=== PATIENT | male | born 1965 | race American Indian/Alaskan Native ===

== ENCOUNTER 2020-07-25 07:53 | Observation (INO) | payer SELFPAY ==
--- NOTE | 2020-07-25 08:20 | Emergency Department Report ---
ED Neuro Deficit HPI - General Chief Complaint: Neuro Symptoms/Deficit Stated Complaint: POSSIBLE STROKE Time Seen by Provider: 07/25/20 08:15 Source: patient Mode of arrival: Ambulatory Limitations: Other - History of Present Illness Initial Comments: 55-year-old male with a past medical history of gout, hypertension, and elevated cholesterol presents to the hospital complaints of neurologic symptoms since 10 AM yesterday morning. Patient states he noted facial droop and slurred speech that has persisted and therefore patient came to the ED today for evaluation. He denies headache, dizziness, extremity weakness, numbness, difficulty swallowing, or unsteady gait. Patient does not take an aspirin daily. He denies tobacco use. History of elevated cholesterol but he is not currently on meds. Patient took last dose of BP medication yesterday. Denies previous history of CVA, TIA, or CAD. PMD: None Code stroke was initiated by staff and patient received CT and neurology evaluation prior to my assessment. I did discuss case with neurologist who recommended stat CT angiogram to rule out large vessel stroke - Related Data Allergies/Adverse Reactions: Allergies Allergy/AdvReac Type Severity Reaction Status Date / Time No Known Allergies Allergy Unverified 07/25/20 07:56 ED Review of Systems ROS: Stated complaint: POSSIBLE STROKE Other details as noted in HPI Comment: All other systems reviewed and negative ED Past Medical Hx - Past Medical History Hx Hypertension: Yes Additional medical history: GOUT, elevated cholesterol ED Neuro Physical Exam - General Limitations: Other Suspected Stroke: Yes - NIHSS Assessment Interval: Baseline 1a. Level of Consciousness: alert/keenly responsive 1b. LOC Questions: answers both correctly 1c. LOC Commands: performs tasks correctly 2. Best Gaze: normal 3. Visual: no visual loss 4. Facial Palsy: unilateral complete paralysis 5b. Motor Arm Right: no drift 5a. Motor Arm Left: no drift 6a. Motor Leg Left: no drift 6b. Motor Leg Right: no drift 7. Limb Ataxia: absent 8. Sensory: normal 9. Best Language: no aphasia 10. Dysarthria: mild/moderate dysarthria 11. Extinction/Inattention: no abnormality Total Score: 4 Stroke Severity: Minor Stroke - Other Other exam information: Exam performed after neurology evaluation with similar NIH stroke score but different exam findings General: No acute distress Head: Atraumatic Eyes: normal appearance ENT: Moist mucous membranes Neck: Normal appearance, no midline tenderness Chest: Clear to auscultation bilaterally CV: Regular rate and rhythm Abdomen: Soft, normal bowel sounds, nontender, nondistended, no rebound or guarding Back: Normal inspection Extremity: Normal inspection, full range of motion Neuro: Alert O x 3, patient has partial paralysis of the left lower face and also some mild paralysis of the left upper face with less movement of the forehead. Positive mild dysarthria but easy to understand. No other focal deficits noted see NIH stroke Psych: Appropriate behavior Skin: No rash ED Course Vital Signs 07/25/20 07/25/20 07/25/20 08:01 08:51 09:00 Temperature 97.4 F L Pulse Rate 120 H 110 H 104 H Respiratory 20 22 27 H Rate Blood Pressure 160/94 Blood Pressure 166/89 172/91 [Right] O2 Sat by Pulse 100 99 99 Oximetry 07/25/20 07/25/20 07/25/20 09:03 09:49 10:00 Temperature Pulse Rate 100 H 98 H Respiratory 25 H 25 H 20 Rate Blood Pressure 160/94 148/87 Blood Pressure [Right] O2 Sat by Pulse 99 100 94 Oximetry 07/25/20 07/25/20 07/25/20 10:15 10:29 10:30 Temperature Pulse Rate 97 H 98 H 97 H Respiratory 24 24 Rate Blood Pressure 157/96 157/96 153/93 Blood Pressure [Right] O2 Sat by Pulse 96 93 Oximetry 07/25/20 07/25/20 07/25/20 10:45 11:01 11:31 Temperature Pulse Rate 96 H 90 104 H Respiratory 25 H 22 20 Rate Blood Pressure 159/94 158/87 159/78 Blood Pressure [Right] O2 Sat by Pulse 93 96 97 Oximetry 07/25/20 12:00 Temperature Pulse Rate 97 H Respiratory 25 H Rate Blood Pressure 153/98 Blood Pressure [Right] O2 Sat by Pulse 97 Oximetry - Lab Data Result diagrams: 07/25/20 08:41 07/25/20 08:41 Lab Results 07/25/20 07/25/20 07/25/20 Range/Units 07:56 08:41 08:41 WBC 9.9 (4.5-11.0) K/mm3 RBC 3.89 (3.65-5.03) M/mm3 Hgb 12.5 (11.8-15.2) gm/dl Hct 36.9 (35.5-45.6) % MCV 95 H (84-94) fl MCH 32 (28-32) pg MCHC 34 (32-34) % RDW 14.9 (13.2-15.2) % Plt Count 262 (140-440) K/mm3 Lymph % (Auto) 30.4 (13.4-35.0) % [place] % (Auto) 12.8 H (0.0-7.3) % Eos % (Auto) 2.8 (0.0-4.3) % Baso % (Auto) 0.5 (0.0-1.8) % Lymph # (Auto) 3.0 (1.2-5.4) K/mm3 [place] # (Auto) 1.3 H (0.0-0.8) K/mm3 Eos # (Auto) 0.3 (0.0-0.4) K/mm3 Baso # (Auto) 0.0 (0.0-0.1) K/mm3 Seg Neutrophils % 53.5 (40.0-70.0) % Seg Neutrophils # 5.3 (1.8-7.7) K/mm3 PT 12.8 (12.2-14.9) Sec. INR 0.97 (0.87-1.13) APTT 28.5 (24.2-36.6) Sec. Thrombin Time (15.1-19.6) Sec. Sodium (137-145) mmol/L Potassium (3.6-5.0) mmol/L Chloride (98-107) mmol/L Carbon Dioxide (22-30) mmol/L Anion Gap mmol/L BUN (9-20) mg/dL Creatinine (0.8-1.3) mg/dL Estimated GFR ml/min BUN/Creatinine Ratio % Glucose (75-100) mg/dL POC Glucose 105 (70-105) mg/dL Calcium (8.4-10.2) mg/dL Troponin T (0.00-0.029) ng/mL 07/25/20 07/25/20 Range/Units 08:41 08:41 WBC (4.5-11.0) K/mm3 RBC (3.65-5.03) M/mm3 Hgb (11.8-15.2) gm/dl Hct (35.5-45.6) % MCV (84-94) fl MCH (28-32) pg MCHC (32-34) % RDW (13.2-15.2) % Plt Count (140-440) K/mm3 Lymph % (Auto) (13.4-35.0) % [place] % (Auto) (0.0-7.3) % Eos % (Auto) (0.0-4.3) % Baso % (Auto) (0.0-1.8) % Lymph # (Auto) (1.2-5.4) K/mm3 [place] # (Auto) (0.0-0.8) K/mm3 Eos # (Auto) (0.0-0.4) K/mm3 Baso # (Auto) (0.0-0.1) K/mm3 Seg Neutrophils % (40.0-70.0) % Seg Neutrophils # (1.8-7.7) K/mm3 PT (12.2-14.9) Sec. INR (0.87-1.13) APTT (24.2-36.6) Sec. Thrombin Time 17.3 (15.1-19.6) Sec. Sodium 140 (137-145) mmol/L Potassium 3.2 L (3.6-5.0) mmol/L Chloride 101.7 (98-107) mmol/L Carbon Dioxide 29 (22-30) mmol/L Anion Gap 13 mmol/L BUN 8 L (9-20) mg/dL Creatinine 0.7 L (0.8-1.3) mg/dL Estimated GFR > 60 ml/min BUN/Creatinine Ratio 11 % Glucose 108 H (75-100) mg/dL POC Glucose (70-105) mg/dL Calcium 8.6 (8.4-10.2) mg/dL Troponin T < 0.010 (0.00-0.029) ng/mL - EKG Data -: EKG Interpreted by De EKG shows normal: sinus rhythm, ST-T waves (No STEMI) Rate: tachycardia (101) - Radiology Data Radiology results: report reviewed CT HEAD WITHOUT CONTRAST INDICATION / CLINICAL INFORMATION: MAIN. TECHNIQUE: All CT scans at this location are performed using CT dose reduction for ALARA by means of automated exposure control. COMPARISON: None available. FINDINGS: BRAIN PARENCHYMA: No acute intracranial hemorrhage. No evidence of recent infarct. No mass effect or midline shift. VENTRICULAR SYSTEM/EXTRA-AXIAL SPACES: Ventricles are normal for age. No extra- axial fluid collection. ORBITS: Normal as visualized. SKELETAL SYSTEM/SOFT TISSUES: Normal bones and soft tissues. PARANASAL SINUSES/MASTOID AIR CELLS: No significant abnormality. ADDITIONAL FINDINGS: None. IMPRESSION: 1. No acute intracranial abnormality. CT angio head INDICATION / CLINICAL INFORMATION: 55 years Male; MAIN. TECHNIQUE: Thin cut axial images obtained through the head during IV bolus contrast administration. Sagittal, coronal, and 3 plane MIP reconstructions performed by the technologist. NASCET type criteria used evaluate stenoses. Automated exposure control utilized for radiation reduction purposes. COMPARISON: None available. FINDINGS: INTERNAL CAROTID ARTERIES: There is no significant focal stenosis involving i nternal carotid arteries by NASCET criteria. VERTEBROBASILAR SYSTEM: The vertebrobasilar system also demonstrate appropriate caliber without significant focal narrowing. CEREBRAL ARTERIES: There is no significant stenosis of the proximal visualizes cerebral arteries or evidence of large vessel occlusion. ANEURYSM: None identified. ADDITIONAL FINDINGS: The dural venous sinuses opacify with contrast. 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 IMPRESSION: There is no CTA evidence of significant stenosis or large vessel occlusion involving intracranial vessels. CT angio neck INDICATION / CLINICAL INFORMATION: 55 years Male; right facial droop and dsyarthria. TECHNIQUE: Thin cut axial images obtained through the head during IV bolus contrast administration. Sagittal, coronal, and 3 plane MIP reconstructions performed by the techno logist. NASCET type criteria used evaluate stenoses. All CT scans at this location are performed u sing CT dose reduction for ALARA by means of automated exposure control. COMPARISON: None available. FINDINGS: CAROTID ARTERIES: There is beam hardening artifact resulting from the patient's body habitus. However, this mild atherosclerotic plaque involving proximal left ICA without significant stenosis by NASCET type criteria. The right carotid arteries are unremarkable without significant narrowing. VERTEBRAL ARTERIES: There is atherosclerotic calcification involving the origins of the vertebral arteries bilaterally with moderate to marked stenosis. ARCH: There is no significant narrowing of the arch vessels. ADDITIONAL FINDINGS: Remainder of the surrounding soft tissues are grossly normal. IMPRESSION: There is mild calcified plaque involving proximal left ICA. There is no significant stenosis involving the carotid arteries by NASCET criteria. There is calcification involving the origins of the vertebral arteries bilaterally with moderate to marked stenosis. - Medical Decision Making 55-year-old male presents to the hospital left-sided facial weakness and dysarthria. On my examination patient does appear to have some upper face involvement with mild weakness noted to the left upper face. Patient presented greater than 20 hours after symptom onset therefore not a TPA candidate. CTA does not reveal large vessel occlusion. Patient passed swallowing screen and provided aspirin the ED. Patient will be admitted to the hospital for further stroke work-up and evaluation as per neurology recommendation. I received a call back from neurologist who recommends that patient also be treated for Campbell's palsy with prednisone and acyclovir due to possible forehead weakness as well Critical Care Time: Yes Critical care time in (mins) excluding proc time.: 35 Critical care attestation.: If time is entered above; I have spent that time in minutes in the direct care of this critically ill patient, excluding procedure time. ED Disposition Clinical Impression: Facial asymmetry, Dysarthria Disposition: [id number] OP ADMIT IP TO THIS HOSP Is pt being admited?: Yes Condition: Stable Time of Disposition: 09:32 (Dr Sanderson, Hospitalist)
[2020-07-25] MEDS ORDERED: ASPIRIN 325 MG TAB PO ONE (08:32)
--- NOTE | 2020-07-25 08:36 | Cat Scan Report ---
CT HEAD WITHOUT CONTRAST INDICATION / CLINICAL INFORMATION: MAIN. TECHNIQUE: All CT scans at this location are performed using CT dose reduction for ALARA by means of automated exposure control. COMPARISON: None available. FINDINGS: BRAIN PARENCHYMA: No acute intracranial hemorrhage. No evidence of recent infarct. No mass effect or midline shift. VENTRICULAR SYSTEM/EXTRA-AXIAL SPACES: Ventricles are normal for age. No extra-axial fluid collection . ORBITS: Normal as visualized. SKELETAL SYSTEM/SOFT TISSUES: Normal bones and soft tissues. PARANASAL SINUSES/MASTOID AIR CELLS: No significant abnormality. ADDITIONAL FINDINGS: None. IMPRESSION: 1. No acute intracranial abnormality. CODE STROKE: Time of Communication (LAND ACQUISITION MANAGER/CDT): 07/25/2020 at 7:31 AM Licensed Practitioner Receiving Report: Dr. Nicholson Signer Name: Yash Caro MD Signed: 07/25/2020 8:31 AM Workstation Name: [id number]
--- NOTE | 2020-07-25 08:38 | Emergency Department Report ---
ED Neuro Deficit HPI - General Chief Complaint: Neuro Symptoms/Deficit Stated Complaint: POSSIBLE STROKE Time Seen by Provider: 07/25/20 08:15 Source: patient Mode of arrival: Ambulatory Limitations: Other - History of Present Illness Initial Comments: [facility] [facility] Date of Service: 07/25/2020 07:57:58 Impression: R29.810 - Facial numbness/ Facial weakness Comments/Sign-Out: Patient is a 55 yo male a PMH of HTN, gout who p/w a right facial droop and slurred speech which started yesterday morning. Associated posterior headache. LNK 07/24/20 10AM. CTH reviewed. On exam he has a lower right facial droop with significant dysarthria. He is out of the therapeutic window for alteplase. CTA head and neck are pending to exclude critical stenosis, dissection, lower clinical suspicion of an LVO. Metrics: Last Known Well: 07/24/2020 10:00:00 [employer] Notification Time: 07/25/2020 07:57:48 Arrival Time: 07/25/2020 07:53:00 Stamp Time: 07/25/2020 07:57:58 Time First Login Attempt: 07/25/2020 08:04:35 Symptoms: facial droop, slurred speech NIHSS Start Assessment Time: 07/25/2020 08:12:00 Patient is not a candidate for Alteplase/Activase. Patient was not deemed candidate for Alteplase/Activase thrombolytics because of Last Well Known Above 4.[address] head was reviewed. Lower Likelihood of Large Vessel Occlusion but Following Stat Studies are Recommended CTA Head and Neck. ED Physician notified of diagnostic impression and management plan on 07/25/2020 08:31:00 Our recommendations are outlined below. Recommendations: Activate Stroke Protocol Admission/Order Set Stroke/Telemetry Floor Neuro Checks Bedside Swallow Eval DVT Prophylaxis IV Fluids, Normal Saline Head of Bed 30 Degrees Euglycemia and Avoid Hyperthermia (PRN Acetaminophen) Initiate Aspirin 81 MG Daily Rec ASA 325mg in ED Routine Consultation with Inhouse Neurology for Follow up Care Sign Out: Discussed with Emergency Department Provider History of Present Illness: Patient is a 55 year old Male. Patient was brought by private transportation with symptoms of facial droop, slurred speech Patient is a 55 yo male a PMH of HTN, gout who p/w a right facial droop and slurred speech which started yesterday morning. Associateed campbell retana. ISABEL 07/24/20 10AM. He reports that yesterday morning he awoke in his [place]. He went to the store, when returned he noticed a right droop and slurring of his speech. His symptoms have persisted prompting him to come to the ED. He has mild associated pain in the posterior occipital region. He denies vision changes, aphasia, weakness or numbness in his arms and legs, ataxia. No preceding injury or trauma. Last seen normal was beyond 4.5 hours of presentation. Past Medical History: Hypertension There is NO history of Stroke Anticoagulant use: No Antiplatelet use: No Examination: BP(166/89), Pulse(120), Blood Glucose(105) 1A: Level of Consciousness - Alert; keenly responsive + 0 1B: Ask Month and Age - Both Questions Right + 0 1C: Blink Eyes & Squeeze Hands - Performs Both Tasks + 0 2: Test Horizontal Extraocular Movements - Normal + 0 3: Test Visual Erazo - No Visual Loss + 0 4: Test Facial Palsy (Use Grimace if Obtunded) - Partial paralysis (lower face) + 2 5A: Test Left Arm Motor Drift - No Drift for 10 Seconds + 0 5B: Test Right Arm Motor Drift - No Drift for 10 Seconds + 0 6A: Test Left Leg Motor Drift - No Drift for 5 Seconds + 0 6B: Test Right Leg Motor Drift - No Drift for 5 Seconds + 0 7: Test Limb Ataxia (FNF/Heel-Villa) - No Ataxia + 0 8: Test Sensation - Normal; No sensory loss + 0 9: Test Language/Aphasia - Normal; No aphasia + 0 10: Test Dysarthria - Severe Dysarthria: Unintelligble Slurring or Out of Proportion to Aphasia + 2 11: Test Extinction/Inattention - No abnormality + 0 NIHSS Score: 4 Pre-Morbid Modified Ranking Scale: 0 Points = No symptoms at all Patient/Family was informed the Neurology Consult would happen via TeleHealth consult by way of interactive audio and video telecommunications and consented to receiving care in this manner. Due to the immediate potential for life-threatening deterioration due to underlying acute neurologic illness, I spent 35 minutes providing critical care. This time includes time for face to face visit via telemedicine, review of medical records, imaging studies and discussion of findings with providers, the patient and/or family. Dr Christina Malone [employer] Case [id number] - Related Data Allergies/Adverse Reactions: Allergies Allergy/AdvReac Type Severity Reaction Status Date / Time No Known Allergies Allergy Unverified 07/25/20 07:56 ED Review of Systems ROS: Stated complaint: POSSIBLE STROKE Other details as noted in HPI ED Past Medical Hx - Past Medical History Hx Hypertension: Yes Additional medical history: GOUT ED Neuro Physical Exam - General Limitations: Other Suspected Stroke: Yes - NIHSS Assessment Interval: Baseline 1a. Level of Consciousness: alert/keenly responsive 1b. LOC Questions: answers both correctly 1c. LOC Commands: performs tasks correctly 2. Best Gaze: normal 3. Visual: no visual loss 4. Facial Palsy: partial paralysis 5b. Motor Arm Right: no drift 5a. Motor Arm Left: no drift 6a. Motor Leg Left: no drift 6b. Motor Leg Right: no drift 7. Limb Ataxia: absent 8. Sensory: normal 9. Best Language: no aphasia 10. Dysarthria: severe dysarthria 11. Extinction/Inattention: no abnormality Total Score: 4 Stroke Severity: Minor Stroke ED Course Vital Signs 07/25/20 08:01 Temperature 97.4 F L Pulse Rate 120 H Respiratory 20 Rate Blood Pressure 166/89 [Right] O2 Sat by Pulse 100 Oximetry - Lab Data Lab Results 07/25/20 Range/Units 07:56 POC Glucose 105 (70-105) mg/dL Critical care attestation.: If time is entered above; I have spent that time in minutes in the direct care of this critically ill patient, excluding procedure time. ED Disposition Clinical Impression: Facial asymmetry Disposition: Z- PAT REG,TRIAGED-NO MSE Is pt being admited?: Yes Condition: Stable Referrals: PRIMARY CARE, [Primary Care Provider] - 3-5 Days
[2020-07-25 08:54] LABS: Basophils % (Auto) 0.5 % (0.0-1.8); Eosinophils # (Auto) 0.3 K/mm3 (0.0-0.4); Eosinophils % (Auto) 2.8 % (0.0-4.3); Hematocrit 36.9 % (35.5-45.6); Hemoglobin 12.5 gm/dl (11.8-15.2); Lymphocytes % (Auto) 30.4 % (13.4-35.0); Mean Corpuscular HGB Conc 34 % (32-34); Mean Corpuscular Volume 95 fl (84-94); Monocytes # (Auto) 1.3 K/mm3 (0.0-0.8); Monocytes % (Auto) 12.8 % (0.0-7.3); Platelet Count 262 K/mm3 (140-440); Red Blood Count 3.89 M/mm3 (3.65-5.03); Red Cell Distribution Width 14.9 % (13.2-15.2)
--- NOTE | 2020-07-25 09:11 | Cat Scan Report ---
CT angio head INDICATION / CLINICAL INFORMATION: 55 years Male; MAIN. TECHNIQUE: Thin cut axial images obtained through the head during IV bolus contrast administration. S agittal, coronal, and 3 plane MIP reconstructions performed by the technologist. NASCET type criteria used evaluate stenoses. Automated exposure control utilized for radiation reduction purposes. COMPARISON: None available. FINDINGS: INTERNAL CAROTID ARTERIES: There is no significant focal stenosis involving internal carotid arteries by NASCET criteria. VERTEBROBASILAR SYSTEM: The vertebrobasilar system also demonstrate appropriate caliber without signi ficant focal narrowing. CEREBRAL ARTERIES: There is no significant stenosis of the proximal visualizes cerebral arteries or e vidence of large vessel occlusion. ANEURYSM: None identified. ADDITIONAL FINDINGS: The dural venous sinuses opacify with contrast. There is developmental hypoplasi a of the left transverse and sigmoid sinuses. IMPRESSION: There is no CTA evidence of significant stenosis or large vessel occlusion involving intracranial ves sels. Signer Name: Shaheen Loera MD Signed: 07/25/2020 9:06 AM Workstation Name: [id number]
--- NOTE | 2020-07-25 09:17 | Cat Scan Report ---
CT angio neck INDICATION / CLINICAL INFORMATION: 55 years Male; right facial droop and dsyarthria. TECHNIQUE: Thin cut axial images obtained through the head during IV bolus contrast administration. S agittal, coronal, and 3 plane MIP reconstructions performed by the technologist. NASCET type criteria used evaluate stenoses. All CT scans at this location are performed using CT dose reduction for ALAR A by means of automated exposure control. COMPARISON: None available. FINDINGS: CAROTID ARTERIES: There is beam hardening artifact resulting from the patient's body habitus. However , this mild atherosclerotic plaque involving proximal left ICA without significant stenosis by NASCET type criteria. The right carotid arteries are unremarkable without significant narrowing. VERTEBRAL ARTERIES: There is atherosclerotic calcification involving the origins of the vertebral art eries bilaterally with moderate to marked stenosis. ARCH: There is no significant narrowing of the arch vessels. ADDITIONAL FINDINGS: Remainder of the surrounding soft tissues are grossly normal. IMPRESSION: There is mild calcified plaque involving proximal left ICA. There is no significant stenosis involvin g the carotid arteries by NASCET criteria. There is calcification involving the origins of the vertebral arteries bilaterally with moderate to m arked stenosis. Signer Name: Shaheen Loera MD Signed: 07/25/2020 9:12 AM Workstation Name: [id number]
[2020-07-25 09:21] LABS: Blood Urea Nitrogen 8 mg/dL (9-20); Calcium 8.6 mg/dL (8.4-10.2); Hemolysis Index 15
[2020-07-25 09:23] LABS: INR 0.97 (0.87-1.13)
[2020-07-25 09:24] LABS: Partial Thromboplastin Time 28.5 Sec. (24.2-36.6)
[2020-07-25 09:28] LABS: BUN/Creatinine Ratio 11
[2020-07-25] MEDS ORDERED: METOCLOPRAMIDE 10 MG TAB PO PRN (09:32)
[2020-07-25] MEDS ORDERED: MAGNESIUM HYDROXIDE (MOM) ORAL LIQD UDC PO PRN (09:32)
[2020-07-25] MEDS ORDERED: ACETAMINOPHEN 325 MG TAB PO PRN (09:32)
[2020-07-25] MEDS ORDERED: NALOXONE 0.4 MG/1 ML INJ IV PRN (09:32)
[2020-07-25] MEDS ORDERED: PROMETHAZINE 25 MG RECT SUPP PR PRN (09:32)
[2020-07-25] MEDS ORDERED: ONDANSETRON 4 MG/2 ML INJ IV PRN (09:32)
[2020-07-25] MEDS ORDERED: MORPHINE 2 MG/1 ML INJ IV PRN (09:32)
[2020-07-25] MEDS ORDERED: DEXTROSE 50% IN WATER (25GM) 50 ML SYRINGE IV PRN (09:32)
[2020-07-25] MEDS ORDERED: ALBUTEROL 2.5 MG/3 ML NEBU IH PRN (09:32)
--- NOTE | 2020-07-25 09:32 | History and Physical Report ---
History of Present Illness Date of examination: 07/25/20 Date of admission: 07/25/20 Chief complaint: Right-sided facial droop and dysarthria History of present illness: Patient is 55-year-old male with a past medical history of gout, hypertension, and elevated cholesterol presents to the hospital complaints of neurologic symptoms since 10 AM yesterday morning, the patient stated that he noted this initially while going to the store that he speech was slurred. Patient states he noted facial droop and slurred speech that has persisted and therefore patient came to the ED today for evaluation. He denies headache, dizziness, extremity weakness, numbness, difficulty swallowing, or unsteady gait. Patient does not take an aspirin daily. He denies tobacco use. History of elevated cholesterol but he is not currently on meds. Patient took last dose of BP medic ation yesterday although could not recall the name.. Denies previous history of CVA, TIA, or CAD. PMD: None Code stroke was initiated by staff and patient received CT and neurology evaluation prior to my assessment. I did discuss case with neurologist who recommended stat CT angiogram to rule out large vessel stroke which did not show any acute pathology. We requested to admit the patient for further evaluation. Patient is considered outside the therapeutic window for alteplase Past History Past Medical History: hypertension, hyperlipidemia Past Surgical History: No surgical history Social history: lives with family Family history: no significant family history Medications and Allergies Allergies Allergy/AdvReac Type Severity Reaction Status Date / Time No Known Allergies Allergy Unverified 07/25/20 07:56 Review of Systems All systems: negative Constitutional: no weight loss, no weight gain Cardiovascular: no chest pain, no palpitations Respiratory: no cough, no cough with sputum, no excessive sputum, no hemoptysis Neurological: paralysis (Left upper and lower face), change in speech, no head injury Exam - Physical Exam Narrative exam: VITAL SIGNS: Reviewed. GENERAL: The patient appears normally developed, Vital signs as documented. HEAD: No signs of head trauma. EYES: Pupils are equal. Extraocular motions intact. EARS: Hearing grossly intact. MOUTH: Oropharynx is normal. NECK: No adenopathy, no JVD. CHEST: Chest with clear breath sounds bilaterally. No wheezes, rales, or rhonchi. CARDIAC: Regular rate and rhythm. S1 and S2, without murmurs, gallops, or rubs. VASCULAR: No Edema. Peripheral pulses normal and equal in all extremities. ABDOMEN: Soft, non tender and non distended. No rebound or guarding, and no masses palpated. Bowel Sounds normal. MUSCULOSKELETAL: Good range of motion of all major joints. Extremities without clubbing, cyanosis or edema. NEUROLOGIC EXAM: Alert and oriented x 3 motor strength is 5/5. Patient with mild dysarthria still understandable. Right facial droop. With left lower forehead paralysis. Speech normal. Follows commands. PSYCHIATRIC: Mood normal. SKIN: detail exam as documented in skin assessment - Constitutional Vitals: Temp Pulse Resp BP Pulse Ox 97.4 F L 110 H 25 H 172/91 99 07/25/20 08:01 07/25/20 08:51 07/25/20 09:03 07/25/20 09:00 07/25/20 09:03 HEART Score - HEART Score Troponin: Troponin T < 0.010 ng/mL (0.00-0.029) 07/25/20 08:41 Results - Labs CBC & Chem 7: 07/25/20 08:41 07/25/20 08:41 Labs: Laboratory Last Values WBC 9.9 K/mm3 (4.5-11.0) 07/25/20 08:41 RBC 3.89 M/mm3 (3.65-5.03) 07/25/20 08:41 Hgb 12.5 gm/dl (11.8-15.2) 07/25/20 08:41 Hct 36.9 % (35.5-45.6) 07/25/20 08:41 MCV 95 fl (84-94) H 07/25/20 08:41 MCH 32 pg (28-32) 07/25/20 08:41 MCHC 34 % (32-34) 07/25/20 08:41 RDW 14.9 % (13.2-15.2) 07/25/20 08:41 Plt Count 262 K/mm3 (140-440) 07/25/20 08:41 Lymph % (Auto) 30.4 % (13.4-35.0) 07/25/20 08:41 Mcdowell % (Auto) 12.8 % (0.0-7.3) H 07/25/20 08:41 Eos % (Auto) 2.8 % (0.0-4.3) 07/25/20 08:41 Baso % (Auto) 0.5 % (0.0-1.8) 07/25/20 08:41 Lymph # (Auto) 3.0 K/mm3 (1.2-5.4) 07/25/20 08:41 Mcdowell # (Auto) 1.3 K/mm3 (0.0-0.8) H 07/25/20 08:41 Eos # (Auto) 0.3 K/mm3 (0.0-0.4) 07/25/20 08:41 Baso # (Auto) 0.0 K/mm3 (0.0-0.1) 07/25/20 08:41 Seg Neutrophils % 53.5 % (40.0-70.0) 07/25/20 08:41 Seg Neutrophils # 5.3 K/mm3 (1.8-7.7) 07/25/20 08:41 PT 12.8 Sec. (12.2-14.9) 07/25/20 08:41 INR 0.97 (0.87-1.13) 07/25/20 08:41 APTT 28.5 Sec. (24.2-36.6) 07/25/20 08:41 Sodium 140 mmol/L (137-145) 07/25/20 08:41 Potassium 3.2 mmol/L (3.6-5.0) L 07/25/20 08:41 Chloride 101.7 mmol/L (98-107) 07/25/20 08:41 Carbon Dioxide 29 mmol/L (22-30) 07/25/20 08:41 Anion Gap 13 mmol/L 07/25/20 08:41 BUN 8 mg/dL (9-20) L 07/25/20 08:41 Creatinine 0.7 mg/dL (0.8-1.3) L 07/25/20 08:41 Estimated GFR > 60 ml/min 07/25/20 08:41 BUN/Creatinine Ratio 11 % 07/25/20 08:41 Glucose 108 mg/dL (75-100) H 07/25/20 08:41 POC Glucose 105 mg/dL (70-105) 07/25/20 07:56 Calcium 8.6 mg/dL (8.4-10.2) 07/25/20 08:41 Troponin T < 0.010 ng/mL (0.00-0.029) 07/25/20 08:41 Suarez/IV: IV Catheter Type [Right INT / [employer]ine [employer] Antecubital] Assessment and Plan Assessment and plan: Patient is 55-year-old male with a past medical history of gout, hypertension, and elevated cholesterol presents to the hospital complaints of neurologic symptoms since 10 AM yesterday morning, the patient stated that he noted this initially while going to the store that he speech was slurred. Patient states he noted facial droop and slurred speech that has persisted and therefore fern ent came to the ED today for evaluation. He denies headache, dizziness, extremity weakness, numbness, difficulty swallowing, or unsteady gait. Patient does not take an aspirin daily. He denies tobacco use. History of elevated cholesterol but he is not currently on meds. Patient took last dose of BP medication yesterday although could not recall the name.. Denies previous history of CVA, TIA, or CAD. PMD: None Code stroke was initiated by staff and patient received CT and neurology evalua tion prior to my assessment. I did discuss case with neurologist who recommended stat CT angiogram to rule out large vessel stroke which did not show any acute pathology. We requested to admit the patient for further evaluation. Patient is considered outside the therapeutic window for alteplase CTA head and neck negative for LVO, b/l moderate to advanced vertebral aa stenosis. 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 Hypertension Hyperlipidemia Hypokalemia Obesity Plan Admit to telemetry and observation Obtain MRI Obtain echocardiogram Start patient on steroids for suspected Campbell's palsy per protocol Aspirin and high-dose statin Ultrasound of the carotid arteries Neurology consultation DVT and GI prophylaxis Advance Directives: Yes Plan of care discussed with patient/family: Yes
[2020-07-25] MEDS: predniSONE 20 MG TAB PO SCH (10:27)
[2020-07-25] MEDS: amLODIPine 10 MG TAB PO SCH (10:29)
[2020-07-25] MEDS: INSULIN LISPRO 100 UNIT/ML SUB-Q SCH ×3 (12:05→21:54)
[2020-07-25] MEDS: valACYclovir 500 MG TAB PO SCH (12:56)
[2020-07-26 06:25] LABS: Basophils % (Auto) 0.3 % (0.0-1.8); Eosinophils # (Auto) 0.1 K/mm3 (0.0-0.4); Eosinophils % (Auto) 0.9 % (0.0-4.3); Hemoglobin 12.6 gm/dl (11.8-15.2); Lymphocytes # (Auto) 3.1 K/mm3 (1.2-5.4); Lymphocytes % (Auto) 24.5 % (13.4-35.0); Mean Corpuscular HGB Conc 33 % (32-34); Mean Corpuscular Volume 96 fl (84-94); Monocytes # (Auto) 1.8 K/mm3 (0.0-0.8); Monocytes % (Auto) 13.9 % (0.0-7.3); Platelet Count 276 K/mm3 (140-440); Red Blood Count 3.97 M/mm3 (3.65-5.03); Red Cell Distribution Width 15.1 % (13.2-15.2)
[2020-07-26 06:43] LABS: Blood Urea Nitrogen 10 mg/dL (9-20); Calcium 8.7 mg/dL (8.4-10.2); HDL Cholesterol 47 mg/dL (40-59); Hemolysis Index 1; LDL Cholesterol,Direct 79 mg/dL (50-130)
[2020-07-26 06:44] LABS: BUN/Creatinine Ratio 14
[2020-07-26] MEDS ORDERED: POTASSIUM CHLORIDE ER 20 MEQ TAB PO ONE (10:00)
[2020-07-26] MEDS ORDERED: ASPIRIN 325 MG TAB PO SCH (10:00)
--- NOTE | 2020-07-26 10:09 | Magnetic Resonance Report ---
MR MRA/MRV head wo con, MR brain wo con INDICATION / CLINICAL INFORMATION: Stroke right facial droop.. TECHNIQUE: Multiplanar, multisequence MRI of the brain. Routine MRA of the head. 3-D/MIP reformats postprocessed. Percentage stenosis is determined by direct quantitative measurements of distal internal carotid artery diameter compared with normal reference segments or by criteria similar to NASCET where applicable. COMPARISON: CTA and CT head 07/25/2020 FINDINGS: BRAIN: Intracranial: No restricted diffusion. No hemorrhage. Ventricular caliber is normal. No extra-axial c ollection. No mass. No herniation. Periventricular and centrum semiovale T2 white matter hyperintens ities most consistent with sequela of chronic microvascular disease. Orbits: No significant abnormality of visualized orbits. Sinuses/mastoid: No significant abnormality of visualized sinuses and mastoid air cells. Additional findings: Remote left lamina papyracea fracture.. MRA HEAD: Intracranial vertebral arteries: No occlusion or significant stenosis. Basilar artery: No occlusion or significant stenosis. Posterior cerebral arteries: No occlusion or significant stenosis. Intracranial internal carotid arteries: No occlusion or significant stenosis. Anterior cerebral arteries: The left distal A1 segment appears narrowed however it is completely gotti nt on CTA and this is artifactual. No occlusion or significant stenosis. Middle cerebral arteries: No occlusion or significant stenosis. No aneurysm. Additional findings: None. IMPRESSION: 1. MRI Brain: No acute stroke. 2. MRA Head: No occlusion or hemodynamically significant stenosis. Signer Name: Cristiano Adamson MD Signed: 07/26/2020 10:04 AM Workstation Name: [email or web address]
--- NOTE | 2020-07-26 10:28 | Discharge Summary ---
Providers - Providers Date of Admission: 07/25/20 10:30 Attending physician: DAISY PACHECO MD 07/25/20 09:32 Consult to Physician [CONS] Routine Comment: Consulting Provider: JAMES YE Physician Instructions: Reason For Exam: cva 07/25/20 09:33 Consult to Case Management [CONS] Routine Services Needed at Discharge: Rn Security Notified:: no Consult to Dietitian/Nutrition [CONS] Routine Physician Instructions: Reason For Exam: Reason for Consult: Nutrition Recommendations Reason for Consult: Diet education Occupational Therapy Evaluate and Treat [CONS] Routine Comment: Reason For Exam: Neuro deficits Physical Therapy Evaluation and Treat [CONS] Routine Comment: Reason For Exam: Neuro deficits Primary care physician: [facility] Hospitalization Condition: Stable Disposition: DC/TX-06 HOME UNDER HOME HL[facility] Exam - Constitutional Vitals: Temp Pulse Resp BP Pulse Ox 98.3 F 100 H 20 147/88 98 07/26/20 08:13 07/26/20 08:13 07/26/20 08:13 07/26/20 08:13 07/26/20 08:13 Plan Activity: advance as tolerated, fall precautions Diet: low fat Special Instructions: record daily weights, record daily BP diary, physical therapy, occupational therapy, other (speech therapy) Follow up with: PRIMARY CARE, [Primary Care Provider] - 3-5 Days KODI VALENTINE MD [Staff Physician] - 7 Days Prescriptions: AtorvaSTATin [Lipitor] 40 mg PO QHS #30 tablet Aspirin [Adult Aspirin] 81 mg PO DAILY #30 tablet. amLODIPine 10 mg PO QDAY #30 tablet predniSONE [Deltasone] 20 mg PO . DIRECT #19 tablet valACYclovir [Valtrex] 1,000 mg PO QDAY #7 tablet
--- NOTE | 2020-07-26 10:34 | Vascular Lab Report ---
Bilateral Carotid Doppler Ultrasound INDICATION : stroke, right facial droop of unknown duration TECHNIQUE: Grayscale and color Doppler imaging performed through the neck. COMPARISON: CTA neck from yesterday FINDINGS: Right: There is no significant atherosclerotic disease. Peak systolic velocity in the CCA is 77 cm/ s. Peak systolic velocity in the proximal ICA is 88 cm/s with end-diastolic velocity of 34 cm/s. ICA to CCA ratio is less than 2. There is antegrade flow in the ECA and the vertebral artery. Left: There is no significant atherosclerotic disease. Peak systolic velocity in the CCA is 98 cm/s. Peak systolic velocity in the proximal ICA is 82 cm/s with end-diastolic velocity of 33 cm/s. ICA to CCA ratio is less than 2. There is antegrade flow in the ECA and the vertebral artery. IMPRESSION: No hemodynamically significant stenosis by NASCET criteria. Signer Name: Harjit Traore MD Signed: 07/26/2020 10:30 AM Workstation Name: [id number]
[2020-07-26] MEDS: valACYclovir 500 MG TAB PO SCH (10:53)
[2020-07-26] MEDS: amLODIPine 10 MG TAB PO SCH (10:53)
[2020-07-26] MEDS: INSULIN LISPRO 100 UNIT/ML SUB-Q SCH ×3 (11:00→17:55)
[2020-07-26] MEDS: predniSONE 20 MG TAB PO SCH (11:06)
[2020-07-26 16:36] VITALS: BP 148/82
--- NOTE | 2020-07-26 17:35 | Consultation ---
History of Present Illness Consult date: 07/26/20 Reason for Consult: CVA Chief complaint: Left facial weakness and slurred speech. History of present illness: 55 yo male with htn, hld, gout who presents with noted acute onset of slurred speech. He notes no other symptoms at present. MR Brain is unremarkable for an acute stroke. Past History Past Medical History: hypertension, hyperlipidemia Past Surgical History: No surgical history Social history: lives with family Family history: no significant family history Medications and Allergies Allergies Allergy/AdvReac Type Severity Reaction Status Date / Time No Known Allergies Allergy Unverified 07/25/20 07:56 Home Medications Medication Instructions Recorded Confirmed Last Taken Type Aspirin [Adult Aspirin] 81 mg PO DAILY #30 tablet. 07/26/20 Unknown Rx AtorvaSTATin [Lipitor] 40 mg PO QHS #30 tablet 07/26/20 Unknown Rx amLODIPine 10 mg PO QDAY #30 tablet 07/26/20 Unknown Rx predniSONE [Deltasone] 20 mg PO . DIRECT #19 tablet 07/26/20 Unknown Rx valACYclovir [Valtrex] 1,000 mg PO QDAY #7 tablet 07/26/20 Unknown Rx Active Meds: Active Medications Acetaminophen (Acetaminophen 325 Mg Tab) 650 mg PO Q4H PRN PRN Reason: Pain MILD(1-3)/Fever >100.5/LARIOS Albuterol (Albuterol 2.5 Mg/3 Ml Nebu) 2.5 mg IH Q3H PRN PRN Reason: Shortness Of Breath Amlodipine Besylate (Amlodipine 10 Mg Tab) 10 mg PO QDAY [facility] Last Admin: 07/26/20 10:53 Dose: 10 mg Documented by: Aspirin (Aspirin 325 Mg Tab) 325 mg PO QDAY [facility] Last Admin: 07/26/20 10:54 Dose: 325 mg Documented by: Atorvastatin Calcium (Atorvastatin 40 Mg Tab) 40 mg PO QHS [facility] Last Admin: 07/25/20 21:52 Dose: 40 mg Documented by: Bisacodyl (Bisacodyl 10 Mg Rect Supp) 10 mg [place] QDAY PRN PRN Reason: Constipation Dextrose (Dextrose 50% In Water (25gm) 50 Ml Syringe) 50 ml IV Q30MIN PRN; Prot ocol PRN Reason: Hypoglycemia Insulin Human Lispro (Insulin Lispro 100 Unit/Ml) 0 unit SUB-Q [facility]; Protocol Last Admin: 07/26/20 12:40 Dose: Not Given Documented by: Magnesium Hydroxide (Magnesium Hydroxide (Mom) Oral Liqd Udc) 30 ml PO Q4H PRN PRN Reason: Constipation Metoclopramide HCl (Metoclopramide 10 Mg Tab) 10 mg PO Q6H PRN PRN Reason: Nausea And Vomiting Morphine Sulfate (Morphine 2 Mg/1 Ml Inj) 2 mg IV Q4H PRN PRN Reason: Pain, Moderate (4-6) Naloxone HCl (Naloxone 0.4 Mg/1 Ml Inj) 0.1 mg IV Q2MIN PRN PRN Reason: Res Rate </= 8 or 02 SAT < 92% Ondansetron HCl (Ondansetron 4 Mg/2 Ml Inj) 4 mg IV Q4H PRN PRN Reason: Nausea And Vomiting Prednisone (Prednisone 20 Mg Tab) 60 mg PO QDAY [facility] Last Admin: 07/26/20 11:06 Dose: 60 mg Documented by: Promethazine HCl (Promethazine 25 Mg Rect Supp) 25 mg [place] Q6H PRN PRN Reason: Nausea And Vomiting Sodium Chloride (Sodium Chloride 0.9% 10 Ml Flush Syringe) 10 ml IV BID [facility] Last Admin: 07/26/20 10:54 Dose: 10 ml Documented by: Sodium Chloride (Sodium Chloride 0.9% 10 Ml Flush Syringe) 10 ml IV PRN PRN PRN Reason: LINE FLUSH Valacyclovir HCl (Valacyclovir 500 Mg Tab) 1,000 mg PO QDAY [facility] Last Admin: 07/26/20 10:53 Dose: 1,000 mg Documented by: Physical Examination - Vital Signs Vital Signs: Vital Signs Temp Pulse Resp BP Pulse Ox 97.4 F L 120 H 20 166/89 100 07/25/20 08:01 07/25/20 08:01 07/25/20 08:01 07/25/20 08:01 07/25/20 08:01 - Physical Exam Narrative exam: Gen: nad, well-nourished; Head: normocephalic; Eyes: no gaze deviation; no ptosis; ENT: normal vocalization; CVS: warm and well-perfused; Pulm: no respiratory distress; GI: non-distended, protuberant; Ext: no cyanosis at distal extremities; Skin: no acute rash at distal extremities; Heme: no pathologic bruising or ecchymosis at distal extremities; Neuro: alert, oriented to name, age, month, year, surroundings, mild to moderate dysarthria, no aphasia, CN 2 - PERRL, visual orellana intact, CN 3, 4, 6 - EOMI, CN 5 - facial sensation symmetric to light touch, CN 7 - facial movement decreased on the left at forehead and lower face (LMN 7 deficit), CN 8 - hearing grossly intact, CN 9, 10 - uvula midline, CN 11 - shrug symmetric, CN 12 - tongue midline; Motor - at least 4/5 in all exts; Sensory - light touch symmetric, Cerebellar - fnf /hts intact, Gait - deferred secondary to fall risk; NIHSS (1a.) Level of Consciousness:0 (1b.) LOC Questions:0 (1c.) LOC Commands:0 (2.) Best Gaze:0 (3.) Visual:0 (4.) Facial Palsy:2 (5a.) Motor Arm, Left:0 (5b.) Motor Arm, Right:0 (6a.) Motor Leg, Left:0 (6b.) Motor Leg, Right:0 (7.) Limb Ataxia:0 (8.) Sensory:0 (9.) Best Language:0 (10.) Dysarthria:1 (11.) Extinction and Inattention:0 NIHSS Total Score:3 Results - Laboratory Findings CBC and BMP: 07/26/20 05:59 07/26/20 05:59 Abnormal Lab Findings: Abnormal Labs 07/25/20 07/25/20 07/25/20 08:41 08:41 12:03 WBC MCV 95 H Terrell % (Auto) 12.8 H Terrell # (Auto) 1.3 H Potassium 3.2 L BUN 8 L Creatinine 0.7 L Glucose 108 H POC Glucose 169 H 07/25/20 07/25/20 07/26/20 16:46 20:56 05:59 WBC 12.8 H MCV 96 H Terrell % (Auto) 13.9 H Terrell # (Auto) 1.8 H Potassium BUN Creatinine Glucose POC Glucose 291 H 256 H 07/26/20 07/26/20 07/26/20 05:59 08:11 12:26 WBC MCV Terrell % (Auto) Terrell # (Auto) Potassium 3.0 L BUN Creatinine 0.7 L Glucose 154 H POC Glucose 125 H 150 H 07/26/20 16:27 WBC MCV Terrell % (Auto) Terrell # (Auto) Potassium BUN Creatinine Glucose POC Glucose 234 H Assessment and Plan 55 yo male with htn, hld, gout and presenting w/ left-sided Campbell's palsy. 1. Campbell's Palsy - acyclovir and steroids, per primary team. 2. Patient is cleared by Neurology. Kishan Sloan MD Neurology
== END 2020-07-26 19:36 | disposition home health service (06) ==
LOC: ED 07:53 → 4A 10:30
PROVIDERS: ADMIT Internal Medicine; ATTEND Internal Medicine
DX: G51.0 Bell's palsy (principal); R47.1 Dysarthria and anarthria; I10 Essential (primary) hypertension; E78.5 Hyperlipidemia, unspecified; E66.9 Obesity, unspecified; Q67.0 Congenital facial asymmetry; E78.00 Pure hypercholesterolemia, unspecified; M10.9 Gout, unspecified; R29.704 NIHSS score 4; Z79.82 Long term (current) use of aspirin; Z79.899 Other long term (current) drug therapy; Z68.37 Body mass index [BMI] 37.0-37.9, adult
CPT/HCPCS: 36415; 70450; 70496; 70498; 70544; 70551; 80048; 80061; 82962; 84443; 84484; 85025; 85610; 85670; 85730; 86695; 93005; 93306; 93880; 96372; 97110; 97162; 97165; 99291; A9270; G0378; J7512; Q9967; J1815

== ENCOUNTER 2021-01-14 14:08 | Inpatient (IN) | payer OTHER ==
--- NOTE | 2021-01-14 14:17 | Emergency Department Report ---
HPI - General Time Seen by Provider: 01/14/21 14:11 - HPI HPI: Charge nurse triage/room 18 The patient is a 55-year-old male present with a chief complaint of right-sided weakness and dysarthria. Family states the patient has been dragging his right lower extremity while walking since yesterday afternoon. They initially convinced the patient to come to the emergency department yesterday but he never got out of the car so they took him back home. Overnight the symptoms ap parently worsened and EMS was called. Patient denies complaints but exhibits dysarthria and right facial droop. Patient says he had a previous CVA but did not have any residual deficits ED Past Medical Hx - Past Medical History Hx Hypertension: Yes Additional medical history: GOUT, elevated cholesterol - Surgical History Past Surgical History?: No - Family History Family history: no significant - Social History Smoking Status: Never Smoker - Medications Home Medications: Home Medications Medication Instructions Recorded Confirmed Last Taken Type Aspirin [Adult Aspirin] 81 mg PO DAILY #30 tablet. 07/26/20 Unknown Rx AtorvaSTATin [Lipitor] 40 mg PO QHS #30 tablet 07/26/20 Unknown Rx amLODIPine 10 mg PO QDAY #30 tablet 07/26/20 Unknown Rx predniSONE [Deltasone] 20 mg PO . DIRECT #19 tablet 07/26/20 Unknown Rx valACYclovir [Valtrex] 1,000 mg PO QDAY #7 tablet 07/26/20 Unknown Rx ED Review of Systems ROS: Stated complaint: POSS STROKE Other details as noted in HPI Constitutional: no symptoms reported Eyes: denies: eye pain ENT: denies: throat pain Respiratory: no symptoms reported Cardiovascular: denies: chest pain Endocrine: no symptoms reported Gastrointestinal: denies: abdominal pain Genitourinary: denies: dysuria Musculoskeletal: denies: back pain Neurological: weakness, other (Dysarthria). denies: headache Physical Exam - Physical Exam Physical Exam: GENERAL: The patient is well-developed well-nourished male lying on stretcher not appearing to be in acute distress. [] HEENT: Normocephalic. Atraumatic. Extraocular motions are intact. Patient has moist mucous membranes. NECK: Supple. Trachea midline. There is no adenopathy noted. CHEST/LUNGS: Clear to auscultation. There is no respiratory distress noted. HEART/CARDIOVASCULAR: Regular. There is no tachycardia. There is no gallop rub or murmur. ABDOMEN: Abdomen is soft, nontender. Patient has normal bowel sounds. There is no abdominal distention. SKIN: There is no rash. There is no edema. There is no diaphoresis. NEURO: The patient is awake, alert, and oriented. The patient is cooperative. The patient has no focal neurologic deficits. The patient has normal speech. Right facial droop noted otherwise cranial nerves II through XII grossly intact. Patient able to hold either arm at 45 degree angle for 10-second count. GCS 15 MUSCULOSKELETAL: There is no evidence of acute injury. ED Medical Decision Making - Lab Data Result diagrams: 01/14/21 14:40 01/14/21 14:40 Laboratory Tests 01/14/21 01/14/21 01/14/21 14:40 14:40 14:40 WBC 8.5 RBC 4.58 Hgb 14.6 Hct 43.4 MCV 95 H MCH 32 MCHC 34 RDW 14.0 Plt Count 238 Lymph % (Auto) 18.5 [place] % (Auto) 16.0 H Eos % (Auto) 1.7 Baso % (Auto) 1.8 Lymph # (Auto) 1.6 [place] # (Auto) 1.4 H Eos # (Auto) 0.1 Baso # (Auto) 0.2 H Seg Neutrophils % 62.0 Seg Neutrophils # 5.3 PT 13.4 INR 0.97 APTT 28.1 Thrombin Time 18.0 Sodium 138 Potassium 3.4 L Chloride 102.1 Carbon Dioxide 22 Anion Gap 17 BUN 10 Creatinine 0.8 Estimated GFR > 60 BUN/Creatinine Ratio 13 Glucose 73 L Calcium 9.2 - EKG Data -: EKG Interpreted by Hi EKG shows normal: sinus rhythm Rate: normal - EKG Data When compared to previous EKG there are: previous EKG unavailable Interpretation: nonspecific ST-T wave sera (T wave inversions in leads V3, V4, V5, V6, leads I and aVL) - Radiology Data Radiology results: pending (CTA brain and neck), report reviewed (CT head), image reviewed (CT head) [facility] [address] [place] [address] Cat Scan Report Signed Patient: LENCHO WARNER MR#: [id number] : 1965 Acct:[id number] Age/Sex: 55 / M ADM Date: 01/14/21 Loc: ED Attending Dr: Ordering Physician: WILLIAM RUIZ MD Date of Service: 01/14/21 Procedure(s): CT head/brain wo con Accession Number(s): [id number] cc: WILLIAM RUIZ MD CT head/brain wo con INDICATION / CLINICAL INFORMATION: 55 years Male; Right-sided weakness, dysarthria. TECHNIQUE: Routine CT head without contrast. All CT scans at this location are performed using CT dose reduction for ALARA by means of automated exposure control. COMPARISON: The study is compared to previous CT of 07/25/2020. FINDINGS: BRAIN / INTRACRANIAL CONTENTS: There has been interval development of decreased attenuation involving the left alvarez radiata from the previous CT measuring 1.2 cm transversely at. This finding would be indicative of acute/subacute infarct given the patient's a history of right-sided weakness. 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 There is also mild cerebral atrophy with associated prominence of the ventricular system. There is no clear CT evidence of acute intracranial hemorrhage. ORBITS: There is a persistent defect involving the visualized medial left orbital wall which is unchanged. SINUSES / MASTOIDS: No significant abnormality in the visualized paranasal sinuses or mastoid air cells. CRANIOCERVICAL JUNCTION: No significant abnormality. ADDITIONAL FINDINGS: None. IMPRESSION: 1. The findings are compatible with interval developing acute/subacute infarct involving left alvarez radiata as detailed above. 2. There is otherwise mild to moderate microvascular angiopathy without CT evidence of acute intracranial hemorrhage. Signer Name: Shaheen Loera MD Signed: 01/14/2021 3:38 PM Workstation Name: [id number] Transcribed By: MR Dictated By: Shaheen Loera MD Electronically Authenticated By: Shaheen Loera MD Signed Date/Time: 01/14/21 1538 DD/ 1534 TD/TT: Print Cancel - Differential Diagnosis CVA Critical care attestation.: If time is entered above; I have spent that time in minutes in the direct care o f this critically ill patient, excluding procedure time. ED Disposition Clinical Impression: Right sided weakness, Dysarthria Disposition: OP ADMIT IP TO THIS HOSP Is pt being admited?: Yes Does the pt Need Aspirin: Yes Condition: Fair Referrals: PRIMARY CARE,MD [Primary Care Provider] - 3-5 Days
[2021-01-14 15:02] LABS: Basophils # (Auto) 0.2 K/mm3 (0.0-0.1); Basophils % (Auto) 1.8 % (0.0-1.8); Eosinophils # (Auto) 0.1 K/mm3 (0.0-0.4); Eosinophils % (Auto) 1.7 % (0.0-4.3); Hematocrit 43.4 % (35.5-45.6); Hemoglobin 14.6 gm/dl (11.8-15.2); Lymphocytes # (Auto) 1.6 K/mm3 (1.2-5.4); Lymphocytes % (Auto) 18.5 % (13.4-35.0); Mean Corpuscular HGB Conc 34 % (32-34); Mean Corpuscular Volume 95 fl (84-94); Monocytes # (Auto) 1.4 K/mm3 (0.0-0.8); Platelet Count 238 K/mm3 (140-440); Red Blood Count 4.58 M/mm3 (3.65-5.03)
[2021-01-14 15:13] LABS: INR 0.97 (0.87-1.13)
[2021-01-14 15:14] LABS: Partial Thromboplastin Time 28.1 Sec. (24.2-36.6)
[2021-01-14 15:25] LABS: BUN/Creatinine Ratio 13; Blood Urea Nitrogen 10 mg/dL (9-20); Calcium 9.2 mg/dL (8.4-10.2); Hemolysis Index 7
--- NOTE | 2021-01-14 15:42 | Cat Scan Report ---
CT head/brain wo con INDICATION / CLINICAL INFORMATION: 55 years Male; Right-sided weakness, dysarthria. TECHNIQUE: Routine CT head without contrast. All CT scans at this location are performed using CT dos e reduction for ALARA by means of automated exposure control. COMPARISON: The study is compared to previous CT of 07/25/2020. FINDINGS: BRAIN / INTRACRANIAL CONTENTS: There has been interval development of decreased attenuation involving the left alvarez radiata from the previous CT measuring 1.2 cm transversely at. This finding would be indicative of acute/subacute infarct given the patient's a history of right-sided weakness. 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 There is also mild cerebra l atrophy with associated prominence of the ventricular system. There is no clear CT evidence of acut e intracranial hemorrhage. ORBITS: There is a persistent defect involving the visualized medial left orbital wall which is uncha nged. SINUSES / MASTOIDS: No significant abnormality in the visualized paranasal sinuses or mastoid air hannah ls. CRANIOCERVICAL JUNCTION: No significant abnormality. ADDITIONAL FINDINGS: None. IMPRESSION: 1. The findings are compatible with interval developing acute/subacute infarct involving left alvarez radiata as detailed above. 2. There is otherwise mild to moderate microvascular angiopathy without CT evidence of acute intracra nial hemorrhage. Signer Name: Shaheen Loera MD Signed: 01/14/2021 3:38 PM Workstation Name: [id number]
[2021-01-14] MEDS ORDERED: ASPIRIN 325 MG TAB PO ONE (18:12)
--- NOTE | 2021-01-14 18:58 | Emergency Department Report ---
ED General Adult HPI - General Chief complaint: Neuro Symptoms/Deficit Stated complaint: POSS STROKE Time Seen by Provider: 01/14/21 14:11 Source: patient Mode of arrival: Stretcher Limitations: No Limitations - History of Present Illness Initial comments: [facility] Consult Note # Demographics Consult Type: General Neurology Patient Location: Emergency Room First Name: Daivn Last Name: Merchant Date of : 1965 Age: 55 Gender: Male Time of Initial Page (Eastern Time): 01/14/2021, 15:03 Time of Return Call (Eastern Time): 01/14/2021, 15:05 Phone Only Consult: 55 yo man HTN, HLD, previous stroke with right sided weakness since yesterday noon. For ED doctor has some dysarthria. # HPI History: 55 yo man HTN, HLD, previous stroke with right sided weakness since yesterday noon. For ED doctor has some dysarthria. # Scores Time of exam and NIHSS ( Time): 01/14/2021, 15:38 Level of Consciousness 1a: [0] = Alert; keenly responsive LOC Questions 1b: [0] = Answers both questions correctly LOC Commands 1c: [0] = Performs both tasks correctly Best Gaze 2: [0] = Normal Visual 3: [0] = No visual loss Facial Palsy 4: [0] = Normal symmetrical movements Motor Arm Left 5a: [0] = No drift Motor Arm Right 5b: [0] = No drift Motor Leg Left 6a: [0] = No drift Motor Leg Right 6b: [0] = No drift Limb Ataxia 7: [0] = Absent Sensory 8: [0] = Normal Best Language 9: [0] = No aphasia Dysarthria 10: [1] = Meon-ce-zyvihxkv dysarthria Extinction and Inattention 11: [0] = No abnormality NIHSS Total: 1 # Assessment Impression: improved right sided weakness, dysarthria, likely acute ischemic stroke. # Plan Labs: CBC comprehensive metabolic panel lipid panel TSH ua Diagnostic Test: echo with bubble study Therapy/Evaluation: speech/swallow consultation Medication: aspirin 325 mg daily DVT Prophylaxis: heparin 5000 units subcutaneously q 12 hours Other: consult on-site neurology service for full work-up and evaluation recom mendations If patient has any neurological deterioration please call me back immediately I have discussed my recommendations with the referring provider Additional Recommendations: Admit for stroke work up Disposition: admit # Logistics Telemedicine: phone only - Related Data Previous Rx's Medication Instructions Recorded Last Taken Type Aspirin [Adult Aspirin] 81 mg PO DAILY #30 tablet. 07/26/20 Unknown Rx AtorvaSTATin [Lipitor] 40 mg PO QHS #30 tablet 07/26/20 Unknown Rx amLODIPine 10 mg PO QDAY #30 tablet 07/26/20 Unknown Rx predniSONE [Deltasone] 20 mg PO . DIRECT #19 tablet 07/26/20 Unknown Rx valACYclovir [Valtrex] 1,000 mg PO QDAY #7 tablet 07/26/20 Unknown Rx Allergies Allergy/AdvReac Type Severity Reaction Status Date / Time No Known Allergies Allergy Unverified 07/25/20 07:56 ED Review of Systems ROS: Stated complaint: POSS STROKE Other details as noted in HPI Constitutional: no symptoms reported Eyes: denies: eye pain ENT: denies: throat pain Respiratory: no symptoms reported Cardiovascular: denies: chest pain Endocrine: no symptoms reported Gastrointestinal: denies: abdominal pain Genitourinary: denies: dysuria Musculoskeletal: denies: back pain Neurological: weakness, other (Dysarthria). denies: headache ED Past Medical Hx - Past Medical History Hx Hypertension: Yes Additional medical history: GOUT, elevated cholesterol - Surgical History Past Surgical History?: No - Social History Smoking Status: Never Smoker - Medications Home Medications: Home Medications Medication Instructions Recorded Confirmed Last Taken Type Aspirin [Adult Aspirin] 81 mg PO DAILY #30 tablet. 07/26/20 Unknown Rx AtorvaSTATin [Lipitor] 40 mg PO QHS #30 tablet 07/26/20 Unknown Rx amLODIPine 10 mg PO QDAY #30 tablet 07/26/20 Unknown Rx predniSONE [Deltasone] 20 mg PO . DIRECT #19 tablet 07/26/20 Unknown Rx valACYclovir [Valtrex] 1,000 mg PO QDAY #7 tablet 07/26/20 Unknown Rx ED Physical Exam - General Limitations: No Limitations ED Course Vital Signs 01/14/21 01/14/21 01/14/21 14:17 14:22 15:16 Temperature 98.3 F Pulse Rate 92 H 85 Respiratory 18 22 Rate Blood Pressure 182/102 197/98 O2 Sat by Pulse 98 98 Oximetry 07/16/21 07/16/21 07/16/21 15:30 15:46 16:00 Temperature Pulse Rate 91 H 90 88 Respiratory 20 18 27 H Rate Blood Pressure 197/98 197/98 190/93 O2 Sat by Pulse 98 100 97 Oximetry 01/14/21 01/14/21 01/14/21 16:16 16:30 16:46 Temperature Pulse Rate 77 86 85 Respiratory 26 H 18 21 Rate Blood Pressure 190/93 190/93 190/93 O2 Sat by Pulse 99 96 96 Oximetry 01/14/21 01/14/21 01/14/21 18:00 18:30 18:46 Temperature Pulse Rate 92 H 85 90 Respiratory 28 H 18 24 Rate Blood Pressure 191/111 191/111 176/89 O2 Sat by Pulse 100 97 96 Oximetry ED Medical Decision Making - Lab Data Result diagrams: 01/14/21 14:40 01/14/21 14:40 Critical care attestation.: If time is entered above; I have spent that time in minutes in the direct care of this critically ill patient, excluding procedure time. ED Disposition Clinical Impression: Dysarthria Disposition: -09 OP ADMIT IP TO THIS HOSP Is pt being admited?: Yes Condition: Stable Referrals: PRIMARY CARE, [Primary Care Provider] - 3-5 Days
--- NOTE | 2021-01-14 22:23 | Cat Scan Report ---
CTA HEAD WITH CONTRAST HISTORY: COMPARISON: None. TECHNIQUE: Routine non-contrast CT Head, CTA of the head and post-contrast CT Head are performed. 3-D /MIP reformats postprocessed. All CT scans at this location are performed using CT dose reduction for ALARA by means of automated exposure control CONTRAST: 100 ml of Omnipaque 350 FINDINGS: CTA Head: Intracranial vertebral arteries: No significant abnormality. Basilar artery: No significant abnormality. Posterior cerebral arteries: No significant abnormality. Intracranial internal carotid arteries: Right internal carotid artery is normal from skull base to te rminus; left internal carotid artery is normal from skull base up to the communicating segment howeve r, since the last is CTA, a definite change in the left internal carotid artery terminus and the prox imal left the A1 and M1 segments. Findings here are very suspicious for embolus at the left internal carotid artery terminus Anterior cerebral arteries: Right A1 segment is normal; stenoses at the origin of left the A1 segment (new since the last CTA) Middle cerebral arteries: Right M1 segment is normal;; however, one of the branches of the right midd le cerebral artery appears to be occluded. On the left side, proximal 5 mm of left MCA not seen (new since the last CTA Dural venous sinuses:Not optimally opacified. No significant abnormality. Additional findings: None. IMPRESSION: Since the last CTA, poor opacification of the left internal carotid artery terminus and proximal few mm of left A1 and M1 segments; this finding is new since the last CTA; Embolus Signer Name: Blaze Robles MD Signed: 01/14/2021 10:18 PM Workstation Name: [id number]
--- NOTE | 2021-01-14 22:23 | Cat Scan Report ---
CTA NECK WITH CONTRAST HISTORY: Dysarthria; right-sided weakness COMPARISON: CTA of the neck from 07/25/2020 TECHNIQUE: Routine CTA of the neck was performed. 3-D/MIP reformats were postprocessed. 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 In the previous CTA, innominate artery measures only 1 cm in diamete r. Origin of the right common carotid artery is normal. Cervical vertebral arteries: Vertebral origins are not seen well. However, foraminal segments, extras musa and intradural segments of both vertebral arteries normal Common carotid arteries: No significant abnormality. Carotid bifurcations: Normal Cervical internal carotid arteries: No significant abnormality. Additional findings: None. IMPRESSION: 1. Carotid bifurcations are normal Innominate artery appears prominent (diameter of 2 cm; in the last CTA from 07/25/2020, it measured on ly a centimeter in diameter); this does not appear to be artifactual. Signer Name: Blaze Robles MD Signed: 01/14/2021 10:19 PM Workstation Name: [id number]
[2021-01-14] MEDS ORDERED: ASPIRIN 81 MG TAB CHEW PO ONE (22:32)
[2021-01-14] MEDS ORDERED: CLOPIDOGREL 300 MG TAB PO ONE (23:08)
--- NOTE | 2021-01-15 00:20 | Event Note ---
Date: 01/15/21 I was asked by my colleague, Dr. Watkins, to follow the results of the CT angiography studies of the head and neck. The full radiology read is below, but I was called by the radiologist about the CT angiography of the head showing some lack of opacification to the terminal portion of the internal carotid artery and a few millimeter segments of M1 and A1. CTA HEAD WITH CONTRAST HISTORY: COMPARISON: None. TECHNIQUE: Routine non- contrast CT Head, CTA of the head and post-contrast CT Head are performed. 3- D/MIP reformats postprocessed. All CT scans at this location are performed using CT dose reduction for ALARA by means of automated exposure control CONTRAST: 100 ml of Omnipaque 350 FINDINGS: CTA Head: Intracranial vertebral arteries: No significant abnormality. Basilar artery: No significant abnormality. Posterior cerebral arteries: No significant abnormality. Intracranial internal carotid arteries: Right internal carotid artery is normal from skull base to terminus; left internal carotid artery is normal from skull base up to the communicating segment however, since the last is CTA, a definite change in the left internal carotid artery terminus and the proximal left the A1 and M1 segments. Findings here are very suspicious for embolus at the left internal carotid artery terminus Anterior cerebral arteries: Right A1 segment is normal; stenoses at the origin of left the A1 segment (new since the last CTA) Middle cerebral arteries: Right M1 segment is normal;; however, one of the branches of the right middle cerebral artery appears to be occluded. On the left side, proximal 5 mm of left MCA not seen (new since the last CTA Dural venous sinuses:Not optimally opacified. No significant abnormality. Additional findings: None. IMPRESSION: Since the last CTA, poor opacification of the left internal carotid artery terminus and proximal few mm of left A1 and M1 segments; this finding is new since the last CTA CTA NECK WITH CONTRAST HISTORY: Dysarthria; right-sided weakness COMPARISON: CTA of the neck from 07/25/2020 TECHNIQUE: Routine CTA of the neck was performed. 3-D/MIP reformats were postprocessed. 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 In the previous CTA, innominate artery measures only 1 cm in diameter. Origin of the right common carotid artery is normal. Cervical vertebral arteries: Vertebral origins are not seen well. However, foraminal segments, extraspinal and intradural segments of both vertebral arteries normal Common carotid arteries: No significant abnormality. Carotid bifurcations: Normal Cervical internal carotid arteries: No significant abnormality. Additional findings: None. IMPRESSION: 1. Carotid bifurcations are normal Innominate artery appears prominent (diameter of 2 cm; in the last CTA from 07/25/2020, it measured only a centimeter in diameter); this does not appear to be artifactual. I went and reevaluated this patient. The patient does not have any lateralizing weakness. He has moderate dysarthria, so his NIH stroke scale appears unchanged. I spoke with the telemedicine neurologist, Dr. Dunn, who recommended dual platelet therapy and to contact a tertiary center to inquire about the CT angiography head results to see if the patient requires a perfusion study or transfer. I called [facility] and spoke with the stroke attending, Dr. Sunshine. Neither [facility], nor any of the [facility], had any available beds for transfer. However, Dr. Sunshine, says that he does not feel that transfer is necessary at this time as they would not be doing any type of intervention, they would just be monitoring the patient. He recommends that the patient remain at [facility] to be monitored, remained on dual platelet therapy, and if there is any new neurological changes or decompensation then they should be recontacted. It appears that we have neurology available for inpatient consultation tomorrow. I once again spoke with the telemedicine neurologist, Dr. Dunn, who listened to the discussion I had with the tertiary centers and he agrees with the plan for admission to our hospital for further evaluation and monitoring. All this has been discussed with the admitting hospitalist, Dr. Espinoza, who has accepted the patient to his service.
[2021-01-15] MEDS ORDERED: ALBUTEROL 2.5 MG/3 ML NEBU IH PRN (00:32)
[2021-01-15] MEDS ORDERED: ONDANSETRON 4 MG/2 ML INJ IV PRN (00:32)
--- NOTE | 2021-01-15 00:48 | History and Physical Report ---
History of Present Illness Date of examination: 01/15/21 Date of admission: 01/15/21 Chief complaint: Dysarthria Right-sided weakness History of present illness: 55-year-old male with past medical history of hypertension, hyperlipidemia and previous stroke with right-sided weakness was brought to the hospital because of right-sided weakness and dysarthria. Family states the patient has been dragging his right lower extremity while walking since yesterday afternoon. They initially convinced the patient to come to the emergency department yesterday but he never got out of the car so they took him back home. Overnight the symptoms apparently worsened and EMS was called. Patient denies complaints but exhibits dysarthria and right facial droop. Patient says he had a previous CVA but did not have any residual deficits Patient was seen and evaluated by telemetry neurology. CT angiography studies of the head and neck. The full radiology read is below, but I was called by the radiologist about the CT angiography of the head showing some lack of opacification to the terminal portion of the internal carotid artery and a few millimeter segments of M1 and A1. CTA HEAD WITH CONTRAST HISTORY: COMPARISON: None. TECHNIQUE: Routine non- contrast CT Head, CTA of the head and post-contrast CT Head are performed. 3- D/MIP reformats postprocessed. All CT scans at this location are performed using CT dose reduction for ALARA by means of automated exposure control CONTRAST: 100 ml of Omnipaque 350 FINDINGS: CTA Head: Intracranial vertebral arteries: No significant abnormality. Basilar artery: No significant abnormality. Posterior cerebral arteries: No significant abnormality. Intracranial internal carotid arteries: Right internal carotid artery is normal from skull base to terminus; left internal carotid artery is normal from skull base up to the communicating segment however, since the last is CTA, a definite change in the left internal carotid artery terminus and the proximal left the A1 and M1 segments. Findings here are very suspicious for embolus at the left internal carotid artery terminus Anterior cerebral arteries: Right A1 segment is normal; stenoses at the origin of left the A1 segment (new since the last CTA) Middle cerebral arteries: Right M1 segment is normal;; however, one of the branches of the right middle cerebral artery appears to be occluded. On the left side, proximal 5 mm of left MCA not seen (new since the last CTA Dural venous sinuses:Not optimally opacified. No significant abnormality. Additional findings: None. IMPRESSION: Since the last CTA, poor opacification of the left internal carotid artery terminus and proximal few mm of left A1 and M1 segments; this finding is new since the last CTA CTA NECK WITH CONTRAST HISTORY: Dysarthria; right-sided weakness COMPARISON: CTA of the neck from 07/25/2020 TECHNIQUE: Routine CTA of the neck was performed. 3- D/MIP reformats were postprocessed. 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 In the previous CTA, innominate artery measures only 1 cm in diameter. Origin of the right common carotid artery is normal. Cervical vertebral arteries: Vertebral origins are not seen well. However, foraminal segments, extraspinal and intradural segments of both vertebral arteries normal Common carotid arteries: No significant abnormality. Carotid bifurcations: Normal Cervical internal carotid arteries: No significant abnormality. Additional findings: None. IMPRESSION: 1. Carotid bifurcations are normal Innominate artery appears prominent (diameter of 2 cm; in the last CTA from 07/25/2020, it measured only a centimeter in diameter); this does not appear to be artifactual. Dr Mcdaniels went and reevaluated this patient. The patient does not have any lateralizing weakness. He has moderate dysarthria, so his NIH stroke scale appears unchanged. Dr Mcdaniels spoke with the telemedicine neurologist, Dr. Dunn, who recommended dual platelet therapy and to contact a tertiary center to inquire about the CT angiography head results to see if the patient requires a perfusion study or transfer. I called [facility] and spoke with the stroke attending, Dr. Sunshine. Neither [facility], nor any of the [facility], had any available beds for transfer. However, Dr. Sunshine, says that he does not feel that transfer is necessary at this time as they would not be doing any type of intervention, they would just be monitoring the patient. He recommends that the patient remain at [facility] to be monitored, remained on dual platelet therapy, and if there is any new neurological changes or decompensation then they should be recontacted. I Past History Past Medical History: hypertension, hyperlipidemia, stroke Medications and Allergies Allergies Allergy/AdvReac Type Severity Reaction Status Date / Time No Known Allergies Allergy Unverified 07/25/20 07:56 Home Medications Medication Instructions Recorded Confirmed Last Taken Type Aspirin [Adult Aspirin] 81 mg PO DAILY #30 tablet. 07/26/20 Unknown Rx AtorvaSTATin [Lipitor] 40 mg PO QHS #30 tablet 07/26/20 Unknown Rx amLODIPine 10 mg PO QDAY #30 tablet 07/26/20 Unknown Rx predniSONE [Deltasone] 20 mg PO . DIRECT #19 tablet 07/26/20 Unknown Rx valACYclovir [Valtrex] 1,000 mg PO QDAY #7 tablet 07/26/20 Unknown Rx Active Meds: Active Medications Acetaminophen (Acetaminophen 325 Mg Tab) 650 mg PO Q4H PRN PRN Reason: Pain MILD(1-3)/Fever >100.5/LARIOS Hydrocodone Bitart/Acetaminophen (Hydrocodone/Acetaminophen 5-325 Mg Tab) 2 each PO Q6H PRN PRN Reason: Pain, Moderate (4-6) Albuterol (Albuterol 2.5 Mg/3 Ml Nebu) 2.5 mg IH Q4HRT PRN PRN Reason: Shortness Of Breath Amlodipine Besylate (Amlodipine 10 Mg Tab) 10 mg PO QDAY [facility] Aspirin (Aspirin Ec 81 Mg Tab) 81 mg PO DAILY [facility] Atorvastatin Calcium (Atorvastatin 40 Mg Tab) 40 mg PO QHS [facility] Clopidogrel Bisulfate (Clopidogrel 75 Mg Tab) 75 mg PO QDAY [facility] Heparin Sodium (Porcine) (Heparin 5,000 Unit/1 Ml Vial) 5,000 unit SUB-Q Q8HR [facility] Hydromorphone HCl (Hydromorphone 1 Mg/1 Ml Inj) 0.5 mg IV Q3H PRN PRN Reason: Pain , Severe (7-10) Dextrose/Sodium Chloride (D5ns) 1,000 mls @ 100 mls/hr IV DIRECT [facility] Labetalol HCl (Labetalol 20 Mg/4 Ml Inj) 10 mg IV Q5MIN PRN PRN Reason: to maintain SBP < 180 Ondansetron HCl (Ondansetron 4 Mg/2 Ml Inj) 4 mg IV Q8H PRN PRN Reason: Nausea And Vomiting Prednisone (Prednisone 20 Mg Tab) 20 mg PO . DIRECT [facility] Sodium Chloride (Sodium Chloride 0.9% 10 Ml Flush Syringe) 10 ml INJ PRN PRN PRN Reason: LINE FLUSH Sodium Chloride (Sodium Chloride 0.9% 10 Ml Flush Syringe) 10 ml IV BID [facility] Sodium Chloride (Sodium Chloride 0.9% 10 Ml Flush Syringe) 10 ml IV PRN PRN PRN Reason: LINE FLUSH Valacyclovir HCl (Valacyclovir 500 Mg Tab) 1,000 mg PO QDAY [facility] Exam - Constitutional Vitals: Temp Pulse Resp BP Pulse Ox 98.3 F 93 H 21 173/100 97 01/14/21 14:17 01/14/21 23:46 01/14/21 23:46 01/14/21 23:46 01/14/21 23:46 General appearance: Present: no acute distress, well-nourished - EENT Eyes: Present: PERRL ENT: hearing intact, clear oral mucosa - Neck Neck: Present: supple, normal ROM - Respiratory Respiratory effort: normal Respiratory: bilateral: CTA - Cardiovascular Heart Sounds: Present: S1 & S2. Absent: rub, click - Extremities Extremities: pulses symmetrical, No edema Peripheral Pulses: within normal limits - Abdominal General gastrointestinal: Present: soft, non-tender, non-distended, normal bowel sounds Male genitourinary: Present: normal - Integumentary Integumentary: Present: clear, warm, dry - Musculoskeletal Musculoskeletal: right sided weakness - Psychiatric Psychiatric: appropriate mood/affect, intact judgment & insight - Neurologic Neurologic: CNII-XII intact, other (Dysarthria, right-sided weakness) Results - Labs CBC & Chem 7: 01/14/21 14:40 01/14/21 14:40 Labs: Laboratory Last Values WBC 8.5 K/mm3 (4.5-11.0) 01/14/21 14:40 RBC 4.58 M/mm3 (3.65-5.03) 01/14/21 14:40 Hgb 14.6 gm/dl (11.8-15.2) 01/14/21 14:40 Hct 43.4 % (35.5-45.6) 01/14/21 14:40 MCV 95 fl (84-94) H 01/14/21 14:40 MCH 32 pg (28-32) 01/14/21 14:40 MCHC 34 % (32-34) 01/14/21 14:40 RDW 14.0 % (13.2-15.2) 01/14/21 14:40 Plt Count 238 K/mm3 (140-440) 01/14/21 14:40 Lymph % (Auto) 18.5 % (13.4-35.0) 01/14/21 14:40 [place] % (Auto) 16.0 % (0.0-7.3) H 01/14/21 14:40 Eos % (Auto) 1.7 % (0.0-4.3) 01/14/21 14:40 Baso % (Auto) 1.8 % (0.0-1.8) 01/14/21 14:40 Lymph # (Auto) 1.6 K/mm3 (1.2-5.4) 01/14/21 14:40 [place] # (Auto) 1.4 K/mm3 (0.0-0.8) H 01/14/21 14:40 Eos # (Auto) 0.1 K/mm3 (0.0-0.4) 01/14/21 14:40 Baso # (Auto) 0.2 K/mm3 (0.0-0.1) H 01/14/21 14:40 Seg Neutrophils % 62.0 % (40.0-70.0) 01/14/21 14:40 Seg Neutrophils # 5.3 K/mm3 (1.8-7.7) 01/14/21 14:40 PT 13.4 Sec. (12.2-14.9) 01/14/21 14:40 INR 0.97 (0.87-1.13) 01/14/21 14:40 APTT 28.1 Sec. (24.2-36.6) 01/14/21 14:40 Thrombin Time 18.0 Sec. (15.1-19.6) 01/14/21 14:40 Sodium 138 mmol/L (137-145) 01/14/21 14:40 Potassium 3.4 mmol/L (3.6-5.0) L 01/14/21 14:40 Chloride 102.1 mmol/L (98-107) 01/14/21 14:40 Carbon Dioxide 22 mmol/L (22-30) 01/14/21 14:40 Anion Gap 17 mmol/L 01/14/21 14:40 BUN 10 mg/dL (9-20) 01/14/21 14:40 Creatinine 0.8 mg/dL (0.8-1.3) 01/14/21 14:40 Estimated GFR > 60 ml/min 01/14/21 14:40 BUN/Creatinine Ratio 13 % 01/14/21 14:40 Glucose 73 mg/dL (75-100) L 01/14/21 14:40 Calcium 9.2 mg/dL (8.4-10.2) 01/14/21 14:40 - Imaging and Cardiology CT Scan - head: report reviewed Assessment and Plan VTE prophylaxis?: Chemical Plan of care discussed with patient/family: Yes - Patient Problems (1) CVA (cerebral vascular accident) Current Visit: Yes Status: Acute Plan to address problem: Admit the patient to the medical telemetry. Aspirin 81 mg p.o. daily. Plavix 75 mg p.o. daily. Lipitor 40 mg p.o. daily. MRI of the brain with and without contrast MRI of the brain and neck and with without contrast. Will consult PT OT any speech evaluation. We also consult neurology (2) HTN (hypertension) Current Visit: Yes Status: Acute Plan to address problem: Amlodipine 10 mg p.o. daily. Labetalol 10 mg IV every 6 hours as needed. we will monitor the blood pressure closely (3) Hyperlipidemia Current Visit: Yes Status: Acute Plan to address problem: Lipitor 40 mg p.o. daily we will recheck the lipid panel (4) Dysarthria Current Visit: Yes Status: Acute Plan to address problem: Aspirin 81 mg p.o. daily. Plavix 75 mg p.o. daily. Lipitor 40 mg p.o. daily. MRI of the brain with and without contrast MRI of the brain and neck and with without contrast. Will consult PT OT any speech evaluation. We also consult neurology (5) DVT prophylaxis Current Visit: Yes Status: Acute Plan to address problem: Heparin 5000 units subcu every 8 hours for DVT prophylaxis. Protonix 40 mg p.o. daily for GI prophylaxis. Patient is a full code
[2021-01-15] MEDS ORDERED: predniSONE 20 MG TAB PO SCH (01:00)
[2021-01-15] MEDS: HEPARIN 5,000 UNIT/1 ML VIAL SUB-Q SCH ×3 (06:32→21:37)
[2021-01-15] MEDS: PANTOPRAZOLE 40 MG TAB PO SCH ×2 (06:33→11:54)
--- NOTE | 2021-01-15 09:05 | Consultation ---
History of Present Illness Consult date: 01/15/21 Reason for Consult: right side weakness and speech impairment History of present illness: Dysarthria Right-sided weakness History of present illness: 55-year-old male with past medical history of hypertension, hyperlipidemia and previous stroke with right-sided weakness was brought to the hospital because of worsening of right side weakness and speech impairment Family states the patient has been dragging his right lower extremity while walking since yesterday afternoon. They initially convinced the patient to come to the emergency department yesterday but he never got out of the car so they took him back home. Overnight the symptoms apparently worsened and EMS was called. Patient denies complaints but exhibits slurred Unclear speech and right facial droop. Patient says he had a previous CVA but did not have any residual deficits Patient was seen and evaluated by telemetry neurology. CT angiography studies of the head and neck. The full radiology read is below, but I was called by the radiologist about the CT angiography of the head showing some lack of opacification to the terminal portion of the internal carotid artery and a few millimeter segments of M1 and A1. CTA HEAD . no Intracranial vertebral arteries abnormalities: No significant abnormality. Basilar artery: No significant abnormality. Posterior cerebral arteries: No significant abnormality. Intracranial internal carotid arteries: Right internal carotid artery is normal from skull base to terminus; left internal carotid artery is normal from skull base up to the communicating segment however, since the last is CTA, a definite change in the left internal carotid artery terminus and the proximal left the A1 and M1 segments. Findings here are very suspicious for Embolus at the left internal carotid artery terminus Anterior cerebral arteries: Right A1 segment is normal; stenoses at the origin of left the A1 segment (new since the last CTA) Middle cerebral arteries: Right M1 segment is normal;; however, one of the branches of the right middle cerebral artery appears to be occluded. On the left side, proximal 5 mm of left MCA not seen (new since the last CTA Dural venous sinuses:Not optimally opacified. No significant abnormality. Additional findings: None. IMPRESSION: Since the last CTA, poor opacification of the left internal carotid artery terminus and proximal few mm of left A1 and M1 segments; this finding is new since the last CTA CTA NECK WITH CONTRAST HISTORY COMPARISON: CTA of the neck from 07/25/2020 ,Aortic arch: Origins of major arteries from the aorta are normal; innominate artery appears to be dilated measuring 2 cm in diameter. In the previous CTA, innominate artery measures only 1 cm in diameter. Origin of the right common carotid artery is normal. Cervical vertebral arteries: Vertebral origins are not seen well. However, foraminal segments, extraspinal and intradural segments of both vertebral arteries normal Common carotid arteries: No significant abnormality. Carotid bifurcations: (Normal Cervical internal carotid arteries: No significant abnormality). Additional findings: None. IMPRESSION: 1. Carotid bifurcations are normal Innominate artery appears prominent (diameter of 2 cm; in the last CTA from 07/25/2020, it measured only a centimeter in diameter); this does not appear to be artifactual. Dr Mcdaniels called [facility] and spoke with the stroke attending, Dr. Sunshine. Neither [facility], nor any of the [facility], had any available beds for transfer. However, Dr. Sunshine, says that he does not feel that transfer is necessary at this time as they would not be doing any type of intervention, they would just be monitoring the patient. He recommends that the patient remain at [facility] to be monitored, remained on dual platelet therapy, and if there is any new neurological changes or decompensation then they should be recontacted. I Past History Past Medical History: hypertension, hyperlipidemia, stroke Medications and Allergies Allergies Allergy/AdvReac Type Severity Reaction Status Date / Time No Known Allergies Allergy Unverified 07/25/20 07:56 Home Medications Medication Instructions Recorded Confirmed Last Taken Type Aspirin [Adult Aspirin] 81 mg PO DAILY #30 tablet. 07/26/20 Unknown Rx AtorvaSTATin [Lipitor] 40 mg PO QHS #30 tablet 07/26/20 Unknown Rx amLODIPine 10 mg PO QDAY #30 tablet 07/26/20 Unknown Rx predniSONE [Deltasone] 20 mg PO . DIRECT #19 tablet 07/26/20 Unknown Rx valACYclovir [Valtrex] 1,000 mg PO QDAY #7 tablet 07/26/20 Unknown Rx Active Meds: Active Medications Acetaminophen (Acetaminophen 325 Mg Tab) 650 mg PO Q4H PRN PRN Reason: Pain MILD(1-3)/Fever >100.5/LARIOS Hydrocodone Bitart/Acetaminophen (Hydrocodone/Acetaminophen 5-325 Mg Tab) 2 each PO Q6H PRN PRN Reason: Pain, Moderate (4-6) Albuterol (Albuterol 2.5 Mg/3 Ml Nebu) 2.5 mg IH Q4HRT PRN PRN Reason: Shortness Of Breath Amlodipine Besylate (Amlodipine 10 Mg Tab) 10 mg PO QDAY [facility] Aspirin (Aspirin Ec 81 Mg Tab) 81 mg PO DAILY [facility] Atorvastatin Calcium (Atorvastatin 40 Mg Tab) 40 mg PO QHS [facility] Clopidogrel Bisulfate (Clopidogrel 75 Mg Tab) 75 mg PO QDAY [facility] Heparin Sodium (Porcine) (Heparin 5,000 Unit/1 Ml Vial) 5,000 unit SUB-Q Q8HR [facility] Hydromorphone HCl (Hydromorphone 1 Mg/1 Ml Inj) 0.5 mg IV Q3H PRN PRN Reason: Pain , Severe (7-10) Dextrose/Sodium Chloride (D5ns) 1,000 mls @ 100 mls/hr IV DIRECT [facility] Labetalol HCl (Labetalol 20 Mg/4 Ml Inj) 10 mg IV Q5MIN PRN PRN Reason: to maintain SBP < 180 Ondansetron HCl (Ondansetron 4 Mg/2 Ml Inj) 4 mg IV Q8H PRN PRN Reason: Nausea And Vomiting Prednisone (Prednisone 20 Mg Tab) 20 mg PO . DIRECT VANI Sodium Chloride (Sodium Chloride 0.9% 10 Ml Flush Syringe) 10 ml INJ PRN PRN PRN Reason: LINE FLUSH Sodium Chloride (Sodium Chloride 0.9% 10 Ml Flush Syringe) 10 ml IV BID [facility]ANI Sodium Chloride (Sodium Chloride 0.9% 10 Ml Flush Syringe) 10 ml IV PRN PRN PRN Reason: LINE FLUSH Valacyclovir HCl (Valacyclovir 500 Mg Tab) 1,000 mg PO QDAY [facility] Past History Past Medical History: hypertension, hyperlipidemia, stroke Medications and Allergies Allergies Allergy/AdvReac Type Severity Reaction Status Date / Time No Known Allergies Allergy Unverified 07/25/20 07:56 Home Medications Medication Instructions Recorded Confirmed Last Taken Type Aspirin [Adult Aspirin] 81 mg PO DAILY #30 tablet. 07/26/20 Unknown Rx AtorvaSTATin [Lipitor] 40 mg PO QHS #30 tablet 07/26/20 Unknown Rx amLODIPine 10 mg PO QDAY #30 tablet 07/26/20 Unknown Rx predniSONE [Deltasone] 20 mg PO . DIRECT #19 tablet 07/26/20 Unknown Rx valACYclovir [Valtrex] 1,000 mg PO QDAY #7 tablet 07/26/20 Unknown Rx Active Meds: Active Medications Acetaminophen (Acetaminophen 325 Mg Tab) 650 mg PO Q4H PRN PRN Reason: Pain MILD(1-3)/Fever >100.5/LARIOS Hydrocodone Bitart/Acetaminophen (Hydrocodone/Acetaminophen 5-325 Mg Tab) 2 each PO Q6H PRN PRN Reason: Pain, Moderate (4-6) Albuterol (Albuterol 2.5 Mg/3 Ml Nebu) 2.5 mg IH Q4HRT PRN PRN Reason: Shortness Of Breath Amlodipine Besylate (Amlodipine 10 Mg Tab) 10 mg PO QDAY [facility] Aspirin (Aspirin Ec 81 Mg Tab) 81 mg PO DAILY [facility] Atorvastatin Calcium (Atorvastatin 40 Mg Tab) 40 mg PO QHS [facility] Clopidogrel Bisulfate (Clopidogrel 75 Mg Tab) 75 mg PO QDAY [facility] Heparin Sodium (Porcine) (Heparin 5,000 Unit/1 Ml Vial) 5,000 unit SUB-Q Q8HR [facility] Last Admin: 01/15/21 06:32 Dose: 5,000 unit Documented by: Hydromorphone HCl (Hydromorphone 1 Mg/1 Ml Inj) 0.5 mg IV Q3H PRN PRN Reason: Pain , Severe (7-10) Dextrose/Sodium Chloride (D5ns) 1,000 mls @ 100 mls/hr IV DIRECT [facility] Labetalol HCl (Labetalol 20 Mg/4 Ml Inj) 10 mg IV Q5MIN PRN PRN Reason: to maintain SBP < 180 Ondansetron HCl (Ondansetron 4 Mg/2 Ml Inj) 4 mg IV Q8H PRN PRN Reason: Nausea And Vomiting Pantoprazole Sodium (Pantoprazole 40 Mg Tab) 40 mg PO QDAC [facility] Last Admin: 01/15/21 06:33 Dose: 40 mg Documented by: Sodium Chloride (Sodium Chloride 0.9% 10 Ml Flush Syringe) 10 ml IV BID [facility] Sodium Chloride (Sodium Chloride 0.9% 10 Ml Flush Syringe) 10 ml IV PRN PRN PRN Reason: LINE FLUSH Valacyclovir HCl (Valacyclovir 500 Mg Tab) 1,000 mg PO QDAY [facility] Physical Examination - Vital Signs Vital Signs: Vital Signs Temp Pulse Resp BP 98.3 F 92 H 18 182/102 01/14/21 14:17 01/14/21 14:17 01/14/21 14:17 01/14/21 14:17 - Constitutional General appearance: comfortable - EENT EENT: Present: PERRL, mucous membranes moist - Respiratory Respiratory: Present: chest non-tender, lungs clear, rhonchi - Cardiovascular Cardiovascular: Present: regular rate, normal S1, normal S2 Extremities: Present: no peripheral edema bilatateraly, no clubbing, cyanosis - Gastrointestinal Gastrointestinal: Present: normoactive bowel sounds - Integumentary Integumentary: Present: normal - Neurologic Cranial nerve examination: PERRL, EOMI, other (right facial droop no clear visual deficit , ) Speech examination: other (slurred speech with difficult to understand) Detailed motor examination: other (right upper and lower 3+/5 , and planter is down going no sensory deficit , gait not done , reflexes are suppressed ) - Level of Consciousness 1a. Level of Consciousness: alert/keenly responsive - LOC Questions 1b. LOC Questions: answers 1 question correctly - LOC Command 1c. LOC Commands: performs tasks correctly - Best Gaze 2. Best Gaze: normal - Visual 3. Visual: no visual loss - Facial Palsy 4. Facial Palsy: partial paralysis - Motor Arm 5a. Motor Arm Left: no drift 5b. Motor Arm Right: drift - Motor Leg 6a. Motor Leg Left: no drift 6b. Motor Leg Right: drift - Limb Ataxia 7. Limb Ataxia: absent - Sensory 8. Sensory: normal - Best Language 9. Best Language: mild/moderate aphasia - Dysarthria 10. Dysarthria: normal - Extinction and Inattention 11. Extinction/Inattention: no abnormality - Scoring Total Score: 6 Stroke Severity: Moderate Stroke Results - Laboratory Findings CBC and BMP: 01/14/21 14:40 01/14/21 14:40 Abnormal Lab Findings: Abnormal Labs 01/14/21 01/14/21 14:40 14:40 MCV 95 H [place] % (Auto) 16.0 H [place] # (Auto) 1.4 H Baso # (Auto) 0.2 H Potassium 3.4 L Glucose 73 L Assessment and Plan Assessment and Plan VTE prophylaxis?: Chemical Plan of care discussed with patient/family: Yes - Patient Problems # CVA (cerebral vascular accident) -this is 55 ys old male with hx of remote CVA preesnted with worsening speech and right side weakness finding from Hx and exam are consistent with a new CVA CT brain suggest left corna radiata hypodensity -CTA brain and neck remarkable for possible embolus left Proximal ICA with stenosis A1and M1 pt. is not a candidate for thrombectomy not TPA -CTA neck no significant abnormality -Admit the patient to the medical telemetry. - Aspirin 81 mg p.o. daily. - Plavix 75 mg p.o. daily. - Lipitor 40 mg p.o. daily. - MRI of the brain without contrast - PT OT and speech evaluation. -LDL -A1C -Echo cardiogram -cardiac monitoring # HTN (hypertension) -allow for permissive HTN<220/110 X 48 hours then <150/80 -Amlodipine 10 mg p.o. daily. Labetalol 10 mg IV every 6 hours as needed. we will monitor the blood pressure closely # Hyperlipidemia -Lipitor 40 mg p.o. daily we will recheck the lipid panel # speech impairment - Aspirin 81 mg p.o. daily. - Plavix 75 mg p.o. daily. - Lipitor 40 mg p.o. daily. - MRI of the brain without contrast - PT OT any speech evaluation. # DVT prophylaxis -Heparin 5000 units subcu every 8 hours for DVT prophylaxis. - Protonix 40 mg p.o. daily for GI prophylaxis. -Patient is a full code will follow
[2021-01-15] MEDS ORDERED: ASPIRIN 325 MG TAB PO SCH (10:00)
[2021-01-15] MEDS: CLOPIDOGREL 75 MG TAB PO SCH (11:54)
[2021-01-15] MEDS: amLODIPine 10 MG TAB PO SCH (11:54)
[2021-01-15] MEDS: ASPIRIN EC 81 MG TAB PO SCH (11:54)
[2021-01-15] MEDS: valACYclovir 500 MG TAB PO SCH (11:55)
[2021-01-15] MEDS: HYDROcodone/ACETAMINOPHEN 5-325 MG TAB PO PRN (12:04)
[2021-01-15] MEDS: HYDROmorphone 1 MG/1 ML INJ IV PRN (12:07)
--- NOTE | 2021-01-15 13:06 | Event Note ---
Date: 01/15/21 Patient presents with dysarthria, worse right sided weakness. CT Head suggests acute infarct left alvarez radiata.
[2021-01-15] MEDS: D5W/0.9% NACL 1,000 ML IV SCH (21:37)
[2021-01-16] MEDS: HEPARIN 5,000 UNIT/1 ML VIAL SUB-Q SCH ×4 (05:22→21:27)
[2021-01-16 06:24] LABS: Basophils % (Auto) 0.4 % (0.0-1.8); Eosinophils # (Auto) 0.2 K/mm3 (0.0-0.4); Eosinophils % (Auto) 3.1 % (0.0-4.3); Hematocrit 43.2 % (35.5-45.6); Hemoglobin 14.4 gm/dl (11.8-15.2); Lymphocytes # (Auto) 1.6 K/mm3 (1.2-5.4); Lymphocytes % (Auto) 21.2 % (13.4-35.0); Mean Corpuscular HGB Conc 33 % (32-34); Mean Corpuscular Volume 95 fl (84-94); Monocytes # (Auto) 1.1 K/mm3 (0.0-0.8); Platelet Count 255 K/mm3 (140-440); Red Blood Count 4.54 M/mm3 (3.65-5.03); Red Cell Distribution Width 14.2 % (13.2-15.2)
[2021-01-16 06:35] LABS: BUN/Creatinine Ratio 11; Blood Urea Nitrogen 9 mg/dL (9-20); Calcium 9.2 mg/dL (8.4-10.2); Hemolysis Index 0
--- NOTE | 2021-01-16 11:17 | Progress Note ---
Assessment and Plan Assessment and Plan VTE prophylaxis?: Chemical Plan of care discussed with patient/family: Yes - Patient Problems # CVA (cerebral vascular accident) -this is 55 ys old male with hx of remote CVA presented with worsening speech and right side weakness finding from Hx and exam are consistent with a new CVA CT brain suggest left corna radiata hypodensity -CTA brain and neck remarkable for possible embolus left Proximal ICA with sten osis A1 and M1 pt. is not a candidate for thrombectomy not TPA -CTA neck no significant abnormality -Admit the patient to the medical telemetry. - Aspirin 325 mg p.o. daily. - Plavix 75 mg p.o. daily. - Lipitor 40 mg p.o. daily. - MRI of the brain without contrast - PT OT and speech evaluation. -LDL#79 -A1C# pending -Echo cardiogram study is bad quality might need to repeat -cardiac monitoring # HTN (hypertension) -allow for permissive HTN<220/110 X 48 hours then <150/80 -Amlodipine 10 mg p.o. daily. Labetalol 10 mg IV every 6 hours as needed. we will monitor the blood pressure closely # Hyperlipidemia -Lipitor 40 mg p.o. daily we will recheck the lipid panel # speech impairment - Aspirin 325 mg p.o. daily. - Plavix 75 mg p.o. daily. - Lipitor 40 mg p.o. daily. - MRI of the brain without contrast - PT OT any speech evaluation. # DVT prophylaxis -Heparin 5000 units subcu every 8 hours for DVT prophylaxis. - Protonix 40 mg p.o. daily for GI prophylaxis. -Patient is a full code will follow as needed Subjective Date of service: 01/16/21 Principal diagnosis: right side weakness and worsening speech ouput. Interval history: pt. still with significant unclear speech , and right side weakness MRI not done swallow evaluation is pending need IV hydration !!! he is NPO for now Objective - Vital Sign Vital Signs - 12hr 01/15/21 01/16/21 01/16/21 23:36 04:34 08:13 Temperature 98.3 F 97.3 F L 99.7 F H Pulse Rate 96 H 95 H 79 Respiratory 19 18 18 Rate Blood Pressure 174/111 143/88 Blood Pressure 123/85 [Left] O2 Sat by Pulse 97 99 100 Oximetry 01/16/21 09:57 Temperature Pulse Rate Respiratory Rate Blood Pressure Blood Pressure [Left] O2 Sat by Pulse 98 Oximetry - General Apperance Constitutional: uncomfortable - EENT EENT: PERRL, mucous membranes moist - Respiratory Respiratory: lungs clear, normal breath sounds, rhonchi - Cardiovascular Cardiovascular: regular rate, normal S1, normal S2 Extremities: no peripheral edema bilat, no clubbing, cyanosis - Gastrointestinal Gastrointestinal: normoactive bowel sounds - Integumentary Integumentary: normal - Neurologic Cranial nerve examination: PERRL, EOMI, intact (right facial droop and significant mumble unclear speech ? comprehension is intact ) Detailed motor examination: other (right uper and lower 3+/5 planter is down going , gait is not done ) - Laboratory Findings CBC and BMP: 01/16/21 05:19 01/16/21 05:19 Abnormal Lab Findings: Abnormal Labs 01/14/21 01/14/21 01/16/21 14:40 14:40 05:19 MCV 95 H 95 H [place] % (Auto) 16.0 H 14.0 H [place] # (Auto) 1.4 H 1.1 H Baso # (Auto) 0.2 H Potassium 3.4 L Glucose 73 L
[2021-01-16] MEDS ORDERED: ASPIRIN EC 81 MG TAB PO SCH (11:26)
[2021-01-16] MEDS: ASPIRIN EC 325 MG TAB PO SCH (12:47)
[2021-01-16] MEDS: CLOPIDOGREL 75 MG TAB PO SCH (12:47)
[2021-01-16] MEDS: PANTOPRAZOLE 40 MG TAB PO SCH (12:47)
[2021-01-16] MEDS: amLODIPine 10 MG TAB PO SCH (12:50)
[2021-01-16] MEDS: valACYclovir 500 MG TAB PO SCH (12:51)
[2021-01-16] MEDS: HYDROcodone/ACETAMINOPHEN 5-325 MG TAB PO PRN (21:52)
[2021-01-17] MEDS: HEPARIN 5,000 UNIT/1 ML VIAL SUB-Q SCH ×3 (05:52→22:08)
[2021-01-17] MEDS: ASPIRIN EC 81 MG TAB PO SCH (08:09)
[2021-01-17] MEDS: ASPIRIN EC 325 MG TAB PO SCH (09:43)
[2021-01-17] MEDS: amLODIPine 10 MG TAB PO SCH (09:43)
[2021-01-17] MEDS: CLOPIDOGREL 75 MG TAB PO SCH (09:43)
[2021-01-17] MEDS: valACYclovir 500 MG TAB PO SCH (09:43)
[2021-01-17] MEDS: PANTOPRAZOLE 40 MG TAB PO SCH (09:45)
[2021-01-17] MEDS ORDERED: LIPASE 10,500/PROTEASE 25,000/AMYLASE 43,750 (UNITS) DR CAP FEEDTUBE PRN (12:30)
[2021-01-17] MEDS ORDERED: SODIUM BICARBONATE 325 MG TAB FEEDTUBE PRN (12:30)
[2021-01-17] MEDS ORDERED: SIMPLE SYRUP 15 ML FEEDTUBE PRN ×2 (12:30)
--- NOTE | 2021-01-17 13:13 | Progress Note ---
Assessment and Plan Assessment and plan: 55-year-old male with past medical history of hypertension, hyperlipidemia and previous stroke with right-sided weakness was brought to the hospital because of right-sided weakness and dysarthria. Family states the patient has been dragging his right lower extremity while walking since yesterday afternoon. They initially convinced the patient to come to the emergency department yesterday but he never got out of the car so they took him back home. Overnight the symptoms apparently worsened and EMS was called. Patient denies complaints but exhibits dysarthria and right facial droop. Patient says he had a previous CVA but did not have any residual deficits (1) CVA (cerebral vascular accident) Current Visit: Yes Status: Acute Plan to address problem: Admit the patient to the medical telemetry. Aspirin 81 mg p.o. daily. Plavix 75 mg p.o. daily. Lipitor 40 mg p.o. daily. MRI of the brain with and without contrast MRI of the brain and neck and with without contrast. Will consult PT OT any speech evaluation. We also consult neurology (2) HTN (hypertension) Current Visit: Yes Status: Acute Plan to address problem: Amlodipine 10 mg p.o. daily. Labetalol 10 mg IV every 6 hours as needed. we wi ll monitor the blood pressure closely (3) Hyperlipidemia Current Visit: Yes Status: Acute Plan to address problem: Lipitor 40 mg p.o. daily we will recheck the lipid panel (4) Dysarthria Current Visit: Yes Status: Acute Plan to address problem: Aspirin 81 mg p.o. daily. Plavix 75 mg p.o. daily. Lipitor 40 mg p.o. daily. MRI of the brain with and without contrast MRI of the brain and neck and with without contrast. Will consult PT OT any speech evaluation. We also consult neurology (5) DVT prophylaxis Current Visit: Yes Status: Acute Plan to address problem: Heparin 5000 units subcu every 8 hours for DVT prophylaxis. Protonix 40 mg p.o. daily for GI prophylaxis. Patient is a full code 01/16/21 Patient presented with right sided weakness , slurred speech. CT shows acute stroke. MRI ordered, pending. On Aspirin, Plavix, Lipitor patient was seen and evluated by Neurology PT/OT/Speech consulted History Interval history: Right sided weakness slurred speech Hospitalist Physical - Physical exam Narrative exam: Gen: Not in acute distress, obese HEENT: Atraumatic Lungs: Clear to auscultation bilaterally, no rales, no wheeze Heart:S1 and S2 reg, no murmurs, rubs or gallop Abd: soft, non tender, non distended, normal bowel sounds, Ext: no edema, no clubbing, no cycanosis Neuro: Awake, Dysartria, right hemiparesis - Constitutional Vitals: Temp Pulse Resp BP Pulse Ox 97.8 F 88 18 148/109 95 01/17/21 11:50 01/17/21 11:50 01/17/21 11:50 01/17/21 11:50 01/17/21 11:50 General appearance: Present: no acute distress, obese Results - Labs CBC & Chem 7: 01/16/21 05:19 01/16/21 05:19 Labs: Laboratory Last Values WBC 7.8 K/mm3 (4.5-11.0) 01/16/21 05:19 RBC 4.54 M/mm3 (3.65-5.03) 01/16/21 05:19 Hgb 14.4 gm/dl (11.8-15.2) 01/16/21 05:19 Hct 43.2 % (35.5-45.6) 01/16/21 05:19 MCV 95 fl (84-94) H 01/16/21 05:19 MCH 32 pg (28-32) 01/16/21 05:19 MCHC 33 % (32-34) 01/16/21 05:19 RDW 14.2 % (13.2-15.2) 01/16/21 05:19 Plt Count 255 K/mm3 (140-440) 01/16/21 05:19 Lymph % (Auto) 21.2 % (13.4-35.0) 01/16/21 05:19 [place] % (Auto) 14.0 % (0.0-7.3) H 01/16/21 05:19 Eos % (Auto) 3.1 % (0.0-4.3) 01/16/21 05:19 Baso % (Auto) 0.4 % (0.0-1.8) 01/16/21 05:19 Lymph # (Auto) 1.6 K/mm3 (1.2-5.4) 01/16/21 05:19 [place] # (Auto) 1.1 K/mm3 (0.0-0.8) H 01/16/21 05:19 Eos # (Auto) 0.2 K/mm3 (0.0-0.4) 01/16/21 05:19 Baso # (Auto) 0.0 K/mm3 (0.0-0.1) 01/16/21 05:19 Seg Neutrophils % 61.3 % (40.0-70.0) 01/16/21 05:19 Seg Neutrophils # 4.8 K/mm3 (1.8-7.7) 01/16/21 05:19 PT 13.4 Sec. (12.2-14.9) 01/14/21 14:40 INR 0.97 (0.87-1.13) 01/14/21 14:40 APTT 28.1 Sec. (24.2-36.6) 01/14/21 14:40 Thrombin Time 18.0 Sec. (15.1-19.6) 01/14/21 14:40 Sodium 137 mmol/L (137-145) 01/16/21 05:19 Potassium 3.6 mmol/L (3.6-5.0) 01/16/21 05:19 Chloride 100.9 mmol/L (98-107) 01/16/21 05:19 Carbon Dioxide 24 mmol/L (22-30) 01/16/21 05:19 Anion Gap 16 mmol/L 01/16/21 05:19 BUN 9 mg/dL (9-20) 01/16/21 05:19 Creatinine 0.8 mg/dL (0.8-1.3) 01/16/21 05:19 Estimated GFR > 60 ml/min 01/16/21 05:19 BUN/Creatinine Ratio 11 % 01/16/21 05:19 Glucose 93 mg/dL (75-100) 01/16/21 05:19 Calcium 9.2 mg/dL (8.4-10.2) 01/16/21 05:19 Suarez/IV: Voiding Method Condom Catheter Active Medications - Current Medications Current Medications: Generic Name Dose Route Start Last Admin Trade Name Freq PRN Reason Stop Dose Admin Acetaminophen 650 mg 01/15/21 00:32 Acetaminophen 325 Mg Tab PO Q4H PRN Pain MILD(1-3)/Fever >100.5/LARIOS Hydrocodone Bitart/Acetaminophen 2 each 01/15/21 00:32 01/16/21 21:52 Hydrocodone/Acetaminophen 5-325 Mg Tab PO 2 each Q6H PRN Administration Pain, Moderate (4-6) Albuterol 2.5 mg 01/15/21 00:32 Albuterol 2.5 Mg/3 Ml Nebu IH Q4HRT PRN Shortness Of Breath Amlodipine Besylate 10 mg 01/15/21 10:00 01/17/21 09:43 Amlodipine 10 Mg Tab PO 10 mg QDAY VANI Administration Lipase/Protease/Amylase 1 each 01/17/21 12:30 Lipase 10,500/Protease 25,000/Amylase 43,750 (Units) Dr Purcell FEEDTUBE PRN PRN For Clogged Feeding Tube Aspirin 325 mg 01/16/21 12:00 01/17/21 09:43 Aspirin Ec 325 Mg Tab PO 325 mg QDAY VANI Administration Atorvastatin Calcium 40 mg 01/15/21 22:00 01/16/21 21:27 Atorvastatin 40 Mg Tab PO 40 mg QHS VANI Administration Clopidogrel Bisulfate 75 mg 01/15/21 10:00 01/17/21 09:43 Clopidogrel 75 Mg Tab PO 75 mg QDAY VANI Administration Heparin Sodium (Porcine) 5,000 unit 01/15/21 06:00 01/17/21 05:52 Heparin 5,000 Unit/1 Ml Vial SUB-Q 5,000 unit Q8HR VANI Administration Hydromorphone HCl 0.5 mg 01/15/21 00:32 01/15/21 12:07 Hydromorphone 1 Mg/1 Ml Inj IV 0.5 mg Q3H PRN Administration Pain , Severe (7-10) Dextrose/Sodium Chloride 1,000 mls @ 100 mls/hr 01/15/21 01:00 01/16/21 20:44 D5ns IV Infused DIRECT VANI Infusion Ondansetron HCl 4 mg 01/15/21 00:32 01/15/21 12:04 Ondansetron 4 Mg/2 Ml Inj IV 4 mg Q8H PRN Administration Nausea And Vomiting Pantoprazole Sodium 40 mg 01/15/21 07:30 01/17/21 09:45 Pantoprazole 40 Mg Tab PO 40 mg QDAC VANI Administration Simple Syrup 15 ml 01/17/21 12:30 Simple Syrup 15 Ml FEEDTUBE PRN PRN Hypoglycemia Simple Syrup 30 ml 01/17/21 12:30 Simple Syrup 15 Ml FEEDTUBE PRN PRN Hypoglycemia Sodium Bicarbonate 325 mg 01/17/21 12:30 Sodium Bicarbonate 325 Mg Tab FEEDTUBE PRN PRN For Clogged Feeding Tube Sodium Chloride 10 ml 01/15/21 10:00 01/17/21 09:43 Sodium Chloride 0.9% 10 Ml Flush Syringe IV 10 ml BID VANI Administration Sodium Chloride 10 ml 01/15/21 00:32 Sodium Chloride 0.9% 10 Ml Flush Syringe IV PRN PRN LINE FLUSH Nutrition/Malnutrition Assess - Dietary Evaluation Nutrition/Malnutrition Findings: Nutrition Notes Start: 01/17/21 12:10 Freq: Status: Active Protocol: Document 01/17/21 12:10 JAIDA (Rec: 01/17/21 12:15 NHALL [id number]) Nutrition Notes Need for Assessment generated from: MD Order Initial or Follow up Assessment Current Diagnosis Hypertension,Stroke, Hyperlipidemia Other Pertinent Diagnosis Dysarthria, (R) sided weakness Current Diet NPO Labs/Tests Reviewed Pertinent Medications D5NS at 100ml/hr Height 5 ft 7 in Weight 114.6 kg [place] Body Weight (kg) 67.27 BMI 39.5 Weight Status Obese Subjective/Other Information RD consulted for TF. B[employer] F[employer] MA[employer]GER evaluation ordered. Burn Absent Trauma Absent Minimum of two criteria No #1 Nutrition Diagnosis Inadequate oral intake Etiology CVA As Evidenced by Signs and Symptoms pt NPO Is patient on ventilator? No Is Patient Ambulatory and/or Out of Bed No REE-([facility]-confined to bed) 2343.264 Kcal/Kg value to use for calculation 16 Approximate Energy Requirements Using 1834 kcal/Kg Calculation Used for Recommendations Kcal/kg Additional Notes Pro needs 0.8-1g/kg adjBW: 73- 91g/day Fluid needs 1ml/kcal Nutrition Intervention Nutrition Support: Osmolite 1.5 at 50ml/hr with 150ml water flush q4h. Kcal 1,800 Protein (gm) 75 Carbohydrates (gm) 244 Fat (gm) 59 Fluid (mL) 914 Fiber (gm) 0 Goal #1 TF tolerance Goal #2 TF to meet at least 75% energy and pro needs Anticipated Discharge Needs: Unable to identify at this time Follow-Up By: 01/19/21 Additional Comments F/U: new TF
--- NOTE | 2021-01-17 13:41 | Progress Note ---
Assessment and Plan Assessment and plan: 55-year-old male with past medical history of hypertension, hyperlipidemia and previous stroke with right-sided weakness was brought to the hospital because of right-sided weakness and dysarthria. Family states the patient has been dragging his right lower extremity while walking since yesterday afternoon. They initially convinced the patient to come to the emergency department yesterday but he never got out of the car so they took him back home. Overnight the symptoms apparently worsened and EMS was called. Patient denies complaints but exhibits dysarthria and right facial droop. Patient says he had a previous CVA but did not have any residual deficits (1) CVA (cerebral vascular accident) Current Visit: Yes Status: Acute Plan to address problem: Admit the patient to the medical telemetry. Aspirin 81 mg p.o. daily. Plavix 75 mg p.o. daily. Lipitor 40 mg p.o. daily. MRI of the brain with and without contrast MRI of the brain and neck and with without contrast. Will consult PT OT any speech evaluation. We also consult neurology (2) HTN (hypertension) Current Visit: Yes Status: Acute Plan to address problem: Amlodipine 10 mg p.o. daily. Labetalol 10 mg IV every 6 hours as needed. we wi ll monitor the blood pressure closely (3) Hyperlipidemia Current Visit: Yes Status: Acute Plan to address problem: Lipitor 40 mg p.o. daily we will recheck the lipid panel (4) Dysarthria Current Visit: Yes Status: Acute Plan to address problem: Aspirin 81 mg p.o. daily. Plavix 75 mg p.o. daily. Lipitor 40 mg p.o. daily. MRI of the brain with and without contrast MRI of the brain and neck and with without contrast. Will consult PT OT any speech evaluation. We also consult neurology (5) DVT prophylaxis Current Visit: Yes Status: Acute Plan to address problem: Heparin 5000 units subcu every 8 hours for DVT prophylaxis. Protonix 40 mg p.o. daily for GI prophylaxis. Patient is a full code 01/16/21 Patient presented with right sided weakness , slurred speech. CT shows acute stroke. MRI ordered, pending. On Aspirin, Plavix, Lipitor patient was seen and evluated by Neurology PT/OT/Speech consulted 01/17/21 Patient presented with right sided weakness , slurred speech. CT shows acute ischemic stroke. MRI ordered, pending. Continue Aspirin,Plavix. Lipitor Keep NPO as per Speech therefore will start tube feeding with Dobhoff PT/OT to see Patient was evaluated by Dr. Jones, Neurology Will likely need acute rehab placement. History Interval history: Right sided weakness slurred speech Hospitalist Physical - Physical exam Narrative exam: Gen: Not in acute distress, obese HEENT: Atraumatic Lungs: Clear to auscultation bilaterally, no rales, no wheeze Heart:S1 and S2 reg, no murmurs, rubs or gallop Abd: soft, non tender, non distended, normal bowel sounds, Ext: no edema, no clubbing, no cycanosis Neuro: Awake, Dysartria, right hemiparesis - Constitutional Vitals: Temp Pulse Resp BP Pulse Ox 97.8 F 88 18 148/109 95 01/17/21 11:50 01/17/21 11:50 01/17/21 11:50 01/17/21 11:50 01/17/21 11:50 General appearance: Present: no acute distress, obese Results - Labs CBC & Chem 7: 01/16/21 05:19 01/16/21 05:19 Labs: Laboratory Last Values WBC 7.8 K/mm3 (4.5-11.0) 01/16/21 05:19 RBC 4.54 M/mm3 (3.65-5.03) 01/16/21 05:19 Hgb 14.4 gm/dl (11.8-15.2) 01/16/21 05:19 Hct 43.2 % (35.5-45.6) 01/16/21 05:19 MCV 95 fl (84-94) H 01/16/21 05:19 MCH 32 pg (28-32) 01/16/21 05:19 MCHC 33 % (32-34) 01/16/21 05:19 RDW 14.2 % (13.2-15.2) 01/16/21 05:19 Plt Count 255 K/mm3 (140-440) 01/16/21 05:19 Lymph % (Auto) 21.2 % (13.4-35.0) 01/16/21 05:19 [place] % (Auto) 14.0 % (0.0-7.3) H 01/16/21 05:19 Eos % (Auto) 3.1 % (0.0-4.3) 01/16/21 05:19 Baso % (Auto) 0.4 % (0.0-1.8) 01/16/21 05:19 Lymph # (Auto) 1.6 K/mm3 (1.2-5.4) 01/16/21 05:19 [place] # (Auto) 1.1 K/mm3 (0.0-0.8) H 01/16/21 05:19 Eos # (Auto) 0.2 K/mm3 (0.0-0.4) 01/16/21 05:19 Baso # (Auto) 0.0 K/mm3 (0.0-0.1) 01/16/21 05:19 Seg Neutrophils % 61.3 % (40.0-70.0) 01/16/21 05:19 Seg Neutrophils # 4.8 K/mm3 (1.8-7.7) 01/16/21 05:19 PT 13.4 Sec. (12.2-14.9) 01/14/21 14:40 INR 0.97 (0.87-1.13) 01/14/21 14:40 APTT 28.1 Sec. (24.2-36.6) 01/14/21 14:40 Thrombin Time 18.0 Sec. (15.1-19.6) 01/14/21 14:40 Sodium 137 mmol/L (137-145) 01/16/21 05:19 Potassium 3.6 mmol/L (3.6-5.0) 01/16/21 05:19 Chloride 100.9 mmol/L (98-107) 01/16/21 05:19 Carbon Dioxide 24 mmol/L (22-30) 01/16/21 05:19 Anion Gap 16 mmol/L 01/16/21 05:19 BUN 9 mg/dL (9-20) 01/16/21 05:19 Creatinine 0.8 mg/dL (0.8-1.3) 01/16/21 05:19 Estimated GFR > 60 ml/min 01/16/21 05:19 BUN/Creatinine Ratio 11 % 01/16/21 05:19 Glucose 93 mg/dL (75-100) 01/16/21 05:19 Calcium 9.2 mg/dL (8.4-10.2) 01/16/21 05:19 Suarez/IV: Voiding Method Condom Catheter Active Medications - Current Medications Current Medications: Generic Name Dose Route Start Last Admin Trade Name Freq PRN Reason Stop Dose Admin Acetaminophen 650 mg 01/15/21 00:32 Acetaminophen 325 Mg Tab PO Q4H PRN Pain MILD(1-3)/Fever >100.5/LARIOS Hydrocodone Bitart/Acetaminophen 2 each 01/15/21 00:32 01/16/21 21:52 Hydrocodone/Acetaminophen 5-325 Mg Tab PO 2 each Q6H PRN Administration Pain, Moderate (4-6) Albuterol 2.5 mg 01/15/21 00:32 Albuterol 2.5 Mg/3 Ml Nebu IH Q4HRT PRN Shortness Of Breath Amlodipine Besylate 10 mg 01/15/21 10:00 01/17/21 09:43 Amlodipine 10 Mg Tab PO 10 mg QDAY VANI Administration Lipase/Protease/Amylase 1 each 01/17/21 12:30 Lipase 10,500/Protease 25,000/Amylase 43,750 (Units) Dr Purcell FEEDTUBE PRN PRN For Clogged Feeding Tube Aspirin 325 mg 01/16/21 12:00 01/17/21 09:43 Aspirin Ec 325 Mg Tab PO 325 mg QDAY VANI Administration Atorvastatin Calcium 40 mg 01/15/21 22:00 01/16/21 21:27 Atorvastatin 40 Mg Tab PO 40 mg QHS VANI Administration Clopidogrel Bisulfate 75 mg 01/15/21 10:00 01/17/21 09:43 Clopidogrel 75 Mg Tab PO 75 mg QDAY VANI Administration Heparin Sodium (Porcine) 5,000 unit 01/15/21 06:00 01/17/21 05:52 Heparin 5,000 Unit/1 Ml Vial SUB-Q 5,000 unit Q8HR VANI Administration Hydromorphone HCl 0.5 mg 01/15/21 00:32 01/15/21 12:07 Hydromorphone 1 Mg/1 Ml Inj IV 0.5 mg Q3H PRN Administration Pain , Severe (7-10) Dextrose/Sodium Chloride 1,000 mls @ 100 mls/hr 01/15/21 01:00 01/16/21 20:44 D5ns IV Infused DIRECT VANI Infusion Ondansetron HCl 4 mg 07/17/21 00:32 01/15/21 12:04 Ondansetron 4 Mg/2 Ml Inj IV 4 mg Q8H PRN Administration Nausea And Vomiting Pantoprazole Sodium 40 mg 01/15/21 07:30 01/17/21 09:45 Pantoprazole 40 Mg Tab PO 40 mg QDAC VANI Administration Simple Syrup 15 ml 01/17/21 12:30 Simple Syrup 15 Ml FEEDTUBE PRN PRN Hypoglycemia Simple Syrup 30 ml 01/17/21 12:30 Simple Syrup 15 Ml FEEDTUBE PRN PRN Hypoglycemia Sodium Bicarbonate 325 mg 01/17/21 12:30 Sodium Bicarbonate 325 Mg Tab FEEDTUBE PRN PRN For Clogged Feeding Tube Sodium Chloride 10 ml 01/15/21 10:00 01/17/21 09:43 Sodium Chloride 0.9% 10 Ml Flush Syringe IV 10 ml BID VANI Administration Sodium Chloride 10 ml 01/15/21 00:32 Sodium Chloride 0.9% 10 Ml Flush Syringe IV PRN PRN LINE FLUSH Nutrition/Malnutrition Assess - Dietary Evaluation Nutrition/Malnutrition Findings: Nutrition Notes Start: 01/17/21 12:10 Freq: Status: Active Protocol: Document 01/17/21 12:10 NHALL (Rec: 01/17/21 12:15 ALALL [id number]) Nutrition Notes Need for Assessment generated from: MD Order Initial or Follow up Assessment Current Diagnosis Hypertension,Stroke, Hyperlipidemia Other Pertinent Diagnosis Dysarthria, (R) sided weakness Current Diet NPO Labs/Tests Reviewed Pertinent Medications D5NS at 100ml/hr Height 5 ft 7 in Weight 114.6 kg [place] Body Weight (kg) 67.27 BMI 39.5 Weight Status Obese Subjective/Other Information RD consulted for TF. HOME THERAPY CLINICIAN evaluation ordered. Burn Absent Trauma Absent Minimum of two criteria No #1 Nutrition Diagnosis Inadequate oral intake Etiology CVA As Evidenced by Signs and Symptoms pt NPO Is patient on ventilator? No Is Patient Ambulatory and/or Out of Bed No REE-([facility]-confined to bed) 2343.264 Kcal/Kg value to use for calculation 16 Approximate Energy Requirements Using 1834 kcal/Kg Calculation Used for Recommendations Kcal/kg Additional Notes Pro needs 0.8-1g/kg adjBW: 73- 91g/day Fluid needs 1ml/kcal Nutrition Intervention Nutrition Support: Osmolite 1.5 at 50ml/hr with 150ml water flush q4h. Kcal 1,800 Protein (gm) 75 Carbohydrates (gm) 244 Fat (gm) 59 Fluid (mL) 914 Fiber (gm) 0 Goal #1 TF tolerance Goal #2 TF to meet at least 75% energy and pro needs Anticipated Discharge Needs: Unable to identify at this time Follow-Up By: 01/19/21 Additional Comments F/U: new TF
--- NOTE | 2021-01-17 15:52 | Magnetic Resonance Report ---
MRI BRAIN 01/17/2021 INDICATION / CLINICAL INFORMATION: stroke. TECHNIQUE: Multiplanar, multisequence MR images of the brain were obtained. COMPARISON: CT brain 01/14/2021 FINDINGS: BRAIN / INTRACRANIAL CONTENTS: Unenhanced MR images of the brain demonstrate prominent area of restri cted diffusion in the subcortical structures of the left hemisphere, including portions of the left c entrum semiovale and periventricular white matter. Increased diffusion weighted signal and increased T2-weighted signal is present. There is no evidence of cortical restricted diffusion. There is no evidence of associated mass effect or hemorrhage. Underlying diffuse cerebral atrophy and chronic white matter signal change are present. There are no abnormal extra-axial fluid collections. EXTRACRANIAL: Unremarkable CRANIOCERVICAL JUNCTION: No significant abnormality. VASCULAR FLOW-VOIDS: No significant abnormality. IMPRESSION: Acute/recent left sided subcortical infarct. Underlying atrophic changes. Signer Name: Cody Denson MD Signed: 01/17/2021 3:47 PM Workstation Name: [id number]
--- NOTE | 2021-01-17 15:55 | Magnetic Resonance Report ---
MRA HEAD 01/17/2021 INDICATION / CLINICAL INFORMATION: stroke. TECHNIQUE: Routine MRA of the head is performed. 3-D/MIP reformats postprocessed. COMPARISON: CT angiogram brain 01/14/2021 FINDINGS: MRA HEAD: Intracranial internal carotid arteries: There is limited flow in the terminus of the left distal inte rnal carotid artery, similar to the findings on the prior CT angiogram. The right distal ICA is unrem arkable. Anterior cerebral arteries: There is absence of visible flow signal in the A1 segment of the left ant erior cerebral artery. This is similar to the findings on the recent CT angiogram. Middle cerebral arteries: Absent flow signal in the proximal left M1 segment, with overall paucity of visualization of left MCA branches. Intracranial vertebral arteries: No significant abnormality. Basilar artery: No significant abnormality. Posterior cerebral arteries: No significant abnormality. IMPRESSION: Findings consistent with slow flow or occlusion associated with distal left ICA and prox imal left MCA and GAYATRI. Signer Name: Cody Denson MD Signed: 01/17/2021 3:51 PM Workstation Name: [id number]
--- NOTE | 2021-01-17 16:22 | XRay Report ---
ABDOMEN 1 VIEW(S) INDICATION / CLINICAL INFORMATION: Post Dobhoff placement. COMPARISON: None available. FINDINGS: TUBES / LINES: Feeding tube tip is in the proximal stomach. BOWEL GAS PATTERN: No significant abnormality. FREE AIR / EXTRALUMINAL GAS: None seen. ADDITIONAL FINDINGS: No significant additional findings. IMPRESSION: 1. Feeding tube tip in the proximal stomach. Signer Name: Elvis Fonseca MD Signed: 01/17/2021 4:18 PM Workstation Name: [id number]
[2021-01-17] MEDS: D5W/0.9% NACL 1,000 ML IV SCH (17:35)
--- NOTE | 2021-01-17 17:45 | XRay Report ---
ABDOMEN 1 VIEW INDICATION / CLINICAL INFORMATION: post dobhoff placement. COMPARISON: KUB performed earlier today. FINDINGS: TUBES / LINES: The previously seen Dobbhoff tube has been advanced with the tip projecting over the g astric antrum/first portion of the duodenum. BOWEL GAS PATTERN: No significant abnormality. FREE AIR / EXTRALUMINAL GAS: None seen. ADDITIONAL FINDINGS: No significant additional findings. IMPRESSION: Interval advancement of the Dobbhoff tube as above. No acute abnormality. Signer Name: Adan Rasmussen MD Signed: 01/17/2021 5:41 PM Workstation Name: [id number]
--- NOTE | 2021-01-17 19:33 | XRay Report ---
ABDOMEN, SINGLE VIEW, 1844 hours INDICATION / CLINICAL INFORMATION: Manipulation of Dobhoff. COMPARISON: Prior abdominal film obtained earlier today at 1730 hours FINDINGS: Overall, the appearance of the feeding tube is stable compared with the most recent abdominal radiogr aph. The tip is projecting within the distal stomach but does not appear to be within the duodenum. Signer Name: Danielle Gardner MD Signed: 01/17/2021 7:28 PM Workstation Name: [id number]
--- NOTE | 2021-01-18 00:51 | XRay Report ---
ABDOMEN 1 VIEW 01/17/2021 11:40 PM INDICATION / CLINICAL INFORMATION: Dobhoff placement. COMPARISON: 01/17/2021 FINDINGS: TUBES / LINES: Tip of the feeding tube projects the level the distal stomach. BOWEL GAS PATTERN: No significant abnormality. FREE AIR / EXTRALUMINAL GAS: None. ADDITIONAL FINDINGS: No significant additional findings. IMPRESSION: 1. Feeding tube in expected position. Signer Name: Hima Benson MD Signed: 01/18/2021 12:46 AM Workstation Name: [id number]
[2021-01-18 05:29] LABS: Hemoglobin 14.5 gm/dl (11.8-15.2); Mean Corpuscular HGB Conc 34 % (32-34); Mean Corpuscular Volume 95 fl (84-94); Platelet Count 270 K/mm3 (140-440); Red Blood Count 4.53 M/mm3 (3.65-5.03); Red Cell Distribution Width 14.3 % (13.2-15.2)
[2021-01-18 05:42] LABS: BUN/Creatinine Ratio 6; Blood Urea Nitrogen 5 mg/dL (9-20); Calcium 9.2 mg/dL (8.4-10.2); Hemolysis Index 1
[2021-01-18] MEDS: HEPARIN 5,000 UNIT/1 ML VIAL SUB-Q SCH ×3 (06:43→23:03)
[2021-01-18] MEDS: D5W/0.9% NACL 1,000 ML IV SCH ×2 (06:44→16:36)
--- NOTE | 2021-01-18 08:05 | XRay Report ---
ABDOMEN 1 VIEW(S) INDICATION / CLINICAL INFORMATION: Dobhoff placement. COMPARISON: Earlier today at 1217 hours FINDINGS: TUBES / LINES: The feeding tube has changed slightly. The tube is coiled in the proximal stomach with its tip in the fundus. BOWEL GAS PATTERN: No significant abnormality. FREE AIR / EXTRALUMINAL GAS: None seen. ADDITIONAL FINDINGS: No significant additional findings. IMPRESSION: No significant abnormality. The feeding tube is coiled in the proximal stomach. Signer Name: Refugio Donahue Jr, MD Signed: 01/18/2021 8:00 AM Workstation Name: [id number]
--- NOTE | 2021-01-18 09:07 | Electrocardiograph Report ---
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
--- NOTE | 2021-01-18 10:44 | XRay Report ---
Abdomen single view INDICATION: Dobbhoff tube placement COMPARISON: Radiograph performed earlier in the day on 01/18/2021 Findings/conclusion: The Dobbhoff tube has been advanced slightly but remains coiled in the stomach. The bowel gas pattern is nonobstructive. Signer Name: Tim Salmon MD Signed: 01/18/2021 10:40 AM Workstation Name: [id number]previously [id number])
--- NOTE | 2021-01-18 12:31 | XRay Report ---
ABDOMEN 1 VIEW INDICATION / CLINICAL INFORMATION: New Dobhoff tube placement. COMPARISON: Radiograph performed earlier the same day. FINDINGS: TUBES / LINES: Slight retraction of metallic tipped enteric tube with tip overlying the expected loca tion of the mid stomach. BOWEL GAS PATTERN: No significant abnormality. FREE AIR / EXTRALUMINAL GAS: None seen. ADDITIONAL FINDINGS: No significant additional findings. IMPRESSION: Slight retraction of metallic tipped enteric tube with tip overlying the expected location of the mid stomach Signer Name: Shaheen Roblero MD Signed: 01/18/2021 12:27 PM Workstation Name: [id number]
[2021-01-18] MEDS: PANTOPRAZOLE 40 MG TAB PO SCH (14:40)
[2021-01-18] MEDS: CLOPIDOGREL 75 MG TAB PO SCH (14:40)
[2021-01-18] MEDS: amLODIPine 10 MG TAB PO SCH (14:40)
[2021-01-18] MEDS: ASPIRIN EC 325 MG TAB PO SCH (14:40)
--- NOTE | 2021-01-18 14:54 | Progress Note ---
Assessment and Plan 55-year-old male with past medical history of hypertension, hyperlipidemia and previous stroke was brought to the hospital because of right-sided weakness and dysarthria. Family states the patient has been dragging his right lower extremi ty while walking and Overnight the symptoms apparently worsened and EMS was called. A/P -- Acute CVA (cerebral vascular accident) Admit the patient to the medical telemetry. Aspirin 81 mg p.o. daily. Plavix 75 mg p.o. daily. Lipitor 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 is not a candidate for thrombectomy not TPA -CTA neck no significant abnormality -2d echo on july with preserved EF and another study ordered for PFO -MRI of the brain showed left-sided subcortical infarct. consulted PT OT any speech evaluation. We also consulted neurology Patient is nonverbal with dysphagia: Pending speech eval, continue tube feeding and IV fluids -- HTN (hypertension) Amlodipine 10 mg p.o. daily. Labetalol 10 mg IV every 6 hours as needed. we will monitor the blood pressure closely Patient is getting medications with tube feeding -- Hyperlipidemia Lipitor 40 mg p.o. daily -- Dysarthria Wait for speech eval, continue tube feeding for now --Right-sided hemiparesis due to CVA Continue PT OT -- DVT prophylaxis Heparin 5000 units subcu every 8 hours for DVT prophylaxis. Protonix 40 mg p.o. daily for GI prophylaxis. Patient is a full code Daily clinical course: 01/16/21 Patient presented with right sided weakness , slurred speech. CT shows acute stroke. MRI ordered, pending. On Aspirin, Plavix, Lipitor patient was seen and evluated by Neurology PT/OT/Speech consulted 01/17/21 Patient presented with right sided weakness , slurred speech. CT shows acute ischemic stroke. MRI ordered, pending. Continue Aspirin,Plavix. Lipitor Keep NPO as per Speech therefore will start tube feeding with Dobhoff PT/OT to see Patient was evaluated by Dr. Jones, Neurology Will likely need acute rehab placement. 01/18/21; patient remains confused with right-sided weakness, unable to participate in swallow eval. continue history, continue TF Subjective Date of service: 01/18/21 Principal diagnosis: right side weakness and worsening speech ouput. Interval history: Patient seen and examined. Medical records and medication list reviewed. Vitals noted, patient remains on restraint Patient with right-sided hemiparesis, aphasia Discussed plan of care at bedside with patient's RN. Objective - Exam Narrative Exam: GENERAL: well-developed obese -[place] male lying on bed appeared to be in no discomfort. HEENT: Normocephalic. Atraumatic. No conjunctival congestion or icterus. Patient has moist mucous membranes. NECK: Supple. Trachea midline. CHEST/LUNGS: Clear to auscultated bilaterally, breathing nonlabored. No wheezes crackles or rhonchi. HEART/CARDIOVASCULAR: Regular in rate and rhythm. S1 and S2 positive. ABDOMEN: Abdomen is soft, nontender. Patient has normal bowel sounds. SKIN: There is no rash. Warm and dry. NEURO: Right-sided hemiparesis, patient is nonverbal MUSCULOSKELETAL: No joint effusion or tenderness. EXTRIMITY: No edema, no cyanosis or clubbing. PSYCH: Agitated and restrained. - Constitutional Vitals: Vital Signs - 12hr 01/18/21 01/18/21 01/18/21 04:00 04:18 07:58 Temperature 98.3 F 97.9 F Pulse Rate 87 96 H 94 H Pulse Rate [ Apical] Pulse Rate [ From Monitor] Pulse Rate [ Left Radial] Pulse Rate [ Right Radial] Respiratory 20 20 Rate Blood Pressure 164/94 130/96 Blood Pressure [Left] O2 Sat by Pulse 94 97 Oximetry 01/18/21 01/18/21 01/18/21 10:00 11:30 12:05 Temperature 97.4 F L Pulse Rate 95 H Pulse Rate [ 87 Apical] Pulse Rate [ 87 From Monitor] Pulse Rate [ 87 Left Radial] Pulse Rate [ 87 Right Radial] Respiratory 19 20 Rate Blood Pressure Blood Pressure 134/87 [Left] O2 Sat by Pulse 97 97 98 Oximetry 01/18/21 14:40 Temperature Pulse Rate 98 H Pulse Rate [ Apical] Pulse Rate [ From Monitor] Pulse Rate [ Left Radial] Pulse Rate [ Right Radial] Respiratory Rate Blood Pressure 130/71 Blood Pressure [Left] O2 Sat by Pulse Oximetry - Labs CBC & Chem 7: 01/26/21 05:13 01/26/21 05:13 Labs: Abnormal lab results 01/18/21 01/18/21 Range/Units 04:51 04:51 MCV 95 H (84-94) fl Potassium 3.5 L (3.6-5.0) mmol/L BUN 5 L (9-20) mg/dL
[2021-01-18] MEDS ORDERED: METOPROLOL TARTRATE 5 MG/5 ML INJ IV ONE (22:29)
[2021-01-19] MEDS: HYDROmorphone 1 MG/1 ML INJ IV PRN (03:11)
[2021-01-19] MEDS: HEPARIN 5,000 UNIT/1 ML VIAL SUB-Q SCH ×3 (05:55→23:03)
[2021-01-19] MEDS: PANTOPRAZOLE 40 MG TAB PO SCH (08:20)
[2021-01-19] MEDS: amLODIPine 10 MG TAB PO SCH (09:37)
[2021-01-19] MEDS: CLOPIDOGREL 75 MG TAB PO SCH (09:38)
[2021-01-19] MEDS: ASPIRIN EC 325 MG TAB PO SCH (09:38)
--- NOTE | 2021-01-19 13:09 | XRay Report ---
ABDOMEN 1 VIEW(S) INDICATION / CLINICAL INFORMATION: Dobhoff placement verification. COMPARISON: Yesterday FINDINGS: TUBES / LINES: The Dobbhoff tube has been advanced to the distal stomach near the pylorus. BOWEL GAS PATTERN: No significant abnormality. FREE AIR / EXTRALUMINAL GAS: None seen. ADDITIONAL FINDINGS: No significant additional findings. IMPRESSION: The Dobbhoff tube terminates in the distal stomach. Signer Name: Refugio Donahue Jr, MD Signed: 01/19/2021 1:04 PM Workstation Name: [id number]
--- NOTE | 2021-01-19 15:10 | Progress Note ---
Assessment and Plan 55-year-old male with past medical history of hypertension, hyperlipidemia and previous stroke was brought to the hospital because of right-sided weakness and dysarthria. Family states the patient has been dragging his right lower extremi ty while walking and Overnight the symptoms apparently worsened and EMS was called. A/P -- Acute CVA (cerebral vascular accident) Admit the patient to the medical telemetry. Aspirin 81 mg p.o. daily. Plavix 75 mg p.o. daily. Lipitor 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 is not a candidate for thrombectomy not TPA -CTA neck no significant abnormality -2d echo on july with preserved EF and another study ordered for PFO -MRI of the brain showed left-sided subcortical infarct. consulted PT OT any speech evaluation. We also consulted neurology Patient is nonverbal with dysphagia: Pending speech eval, continue tube feeding and IV fluids -- HTN (hypertension) Amlodipine 10 mg p.o. daily. Labetalol 10 mg IV every 6 hours as needed. we will monitor the blood pressure closely Patient is getting medications with tube feeding -- Hyperlipidemia Lipitor 40 mg p.o. daily -- Dysarthria Wait for speech eval, continue tube feeding for now --Right-sided hemiparesis due to CVA Continue PT OT -- DVT prophylaxis Heparin 5000 units subcu every 8 hours for DVT prophylaxis. Protonix 40 mg p.o. daily for GI prophylaxis. Patient is a full code Daily clinical course: 01/16/21 Patient presented with right sided weakness , slurred speech. CT shows acute stroke. MRI ordered, pending. On Aspirin, Plavix, Lipitor patient was seen and evluated by Neurology PT/OT/Speech consulted 01/17/21 Patient presented with right sided weakness , slurred speech. CT shows acute ischemic stroke. MRI ordered, pending. Continue Aspirin,Plavix. Lipitor Keep NPO as per Speech therefore will start tube feeding with Dobhoff PT/OT to see Patient was evaluated by Dr. Jones, Neurology Will likely need acute rehab placement. 01/18/21; patient remains confused with right-sided weakness, unable to participate in swallow eval. continue history, continue TF 01/19/21: failed speech eval, keep NPO, meds and feeding with dobhoff, follow BMP, adjust BP meds Subjective Date of service: 01/19/21 Principal diagnosis: right side weakness and worsening speech ouput. Interval history: Patient seen and examined. Medical records and medication list reviewed. Vitals noted, patient remains on restraint Patient with right-sided hemiparesis, aphasia Discussed plan of care at bedside with patient's RN. Objective - Exam Narrative Exam: GENERAL: well-developed obese -[place] male lying on bed appeared to be in no discomfort. HEENT: Normocephalic. Atraumatic. No conjunctival congestion or icterus. Patient has moist mucous membranes. NECK: Supple. Trachea midline. CHEST/LUNGS: Clear to auscultated bilaterally, breathing nonlabored. No wheezes crackles or rhonchi. HEART/CARDIOVASCULAR: Regular in rate and rhythm. S1 and S2 positive. ABDOMEN: Abdomen is soft, nontender. Patient has normal bowel sounds. SKIN: There is no rash. Warm and dry. NEURO: Right-sided hemiparesis, patient is nonverbal MUSCULOSKELETAL: No joint effusion or tenderness. EXTRIMITY: No edema, no cyanosis or clubbing. PSYCH: Agitated and restrained. - Constitutional Vitals: Vital Signs - 12hr 01/19/21 01/19/21 01/19/21 04:34 07:58 08:00 Temperature 98.7 F 98.9 F Pulse Rate 95 H 88 82 Respiratory 20 20 Rate Blood Pressure 152/106 155/113 O2 Sat by Pulse 97 96 Oximetry 01/19/21 01/19/21 01/19/21 09:37 10:00 11:09 Temperature 98.9 F Pulse Rate 88 92 H Respiratory 18 20 Rate Blood Pressure 155/113 146/94 O2 Sat by Pulse 97 93 Oximetry - Labs CBC & Chem 7: 01/26/21 05:13 01/26/21 05:13 Labs: Abnormal lab results 01/19/21 01/19/21 01/19/21 Range/Units 00:51 06:26 14:42 POC Glucose 132 H 142 H 125 H (70-105) mg/dL
[2021-01-19] MEDS: D5W/0.9% NACL 1,000 ML IV SCH (17:34)
[2021-01-20] MEDS: D5W/0.9% NACL 1,000 ML IV SCH ×2 (05:00→18:00)
[2021-01-20] MEDS: HEPARIN 5,000 UNIT/1 ML VIAL SUB-Q SCH ×3 (06:53→21:46)
[2021-01-20] MEDS: amLODIPine 10 MG TAB PO SCH (11:11)
[2021-01-20] MEDS: CLOPIDOGREL 75 MG TAB PO SCH (11:11)
[2021-01-20] MEDS: ASPIRIN EC 325 MG TAB PO SCH (11:11)
[2021-01-20] MEDS: PANTOPRAZOLE 40 MG TAB PO SCH (11:11)
--- NOTE | 2021-01-20 15:32 | Progress Note ---
Assessment and Plan 55-year-old male with past medical history of hypertension, hyperlipidemia and previous stroke was brought to the hospital because of right-sided weakness and dysarthria. Family states the patient has been dragging his right lower extremi ty while walking and Overnight the symptoms apparently worsened and EMS was called. A/P -- Acute CVA (cerebral vascular accident) Admit the patient to the medical telemetry. Aspirin 81 mg p.o. daily. Plavix 75 mg p.o. daily. Lipitor 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 is not a candidate for thrombectomy not TPA -CTA neck no significant abnormality -2d echo on july with preserved EF and another study ordered for PFO -MRI of the brain showed left-sided subcortical infarct. consulted PT OT any speech evaluation. We also consulted neurology Patient is nonverbal with dysphagia: failed speech eval, continue tube feeding and IV fluids -- HTN (hypertension), uncontrolled Amlodipine 10 mg p.o. daily. Labetalol 10 mg IV every 6 hours as needed. we will monitor the blood pressure closely Patient is getting medications with tube feeding -- Hyperlipidemia Lipitor 40 mg p.o. daily -- Dysarthria Wait for repeat speech eval, continue tube feeding for now --Right-sided hemiparesis due to CVA Continue PT OT -- DVT prophylaxis Heparin 5000 units subcu every 8 hours for DVT prophylaxis. Protonix 40 mg p.o. daily for GI prophylaxis. Patient is a full code Daily clinical course: 01/16/21 Patient presented with right sided weakness , slurred speech. CT shows acute stroke. MRI ordered, pending. On Aspirin, Plavix, Lipitor patient was seen and evluated by Neurology PT/OT/Speech consulted 01/17/21 Patient presented with right sided weakness , slurred speech. CT shows acute ischemic stroke. MRI ordered, pending. Continue Aspirin,Plavix. Lipitor Keep NPO as per Speech therefore will start tube feeding with Dobhoff PT/OT to see Patient was evaluated by Dr. Jones, Neurology Will likely need acute rehab placement. 01/18/21; patient remains confused with right-sided weakness, unable to part icipate in swallow eval. continue history, continue TF 01/19: Patient continues to have right-sided hemiparesis, failed swallow eval, intermittently agitated with persistent confusion. Continue restraints. Continue tube feeding diet, adjust BP meds as needed, follow BMP. 01/20/21: Patient tolerating tube feeding with Dobbhoff. Remains restrained. Unable to move right upper and lower extremities, along with dysphagia and confusion. Waiting on repeat speech eval and PT eval. Subjective Date of service: 01/20/21 Principal diagnosis: right side weakness and worsening speech ouput. Interval history: Patient seen and examined. Medical records and medication list reviewed. Vitals noted, patient remains on restraint Patient with right-sided hemiparesis, aphasia Discussed plan of care at bedside with patient's RN. Objective - Exam Narrative Exam: GENERAL: well-developed obese -[place] male lying on bed appeared to be in no discomfort. HEENT: Normocephalic. Atraumatic. No conjunctival congestion or icterus. Noemy ent has moist mucous membranes. NECK: Supple. Trachea midline. CHEST/LUNGS: Clear to auscultated bilaterally, breathing nonlabored. No wheezes crackles or rhonchi. HEART/CARDIOVASCULAR: Regular in rate and rhythm. S1 and S2 positive. ABDOMEN: Abdomen is soft, nontender. Patient has normal bowel sounds. SKIN: There is no rash. Warm and dry. NEURO: Right-sided hemiparesis, patient is nonverbal MUSCULOSKELETAL: No joint effusion or tenderness. EXTRIMITY: No edema, no cyanosis or clubbing. PSYCH: Agitated and restrained. - Constitutional Vitals: Vital Signs - 12hr 01/20/21 01/20/21 01/20/21 04:00 04:36 08:18 Temperature 98.2 F 98.7 F Pulse Rate 82 80 Respiratory 20 22 Rate Blood Pressure 151/83 189/79 O2 Sat by Pulse 96 100 Oximetry 01/20/21 10:00 Temperature Pulse Rate Respiratory Rate Blood Pressure O2 Sat by Pulse 98 Oximetry - Labs CBC & Chem 7: 01/26/21 05:13 01/26/21 05:13 Labs: Abnormal lab results 01/19/21 01/19/21 01/20/21 Range/Units 17:26 22:38 05:02 POC Glucose 118 H 128 H 124 H (70-105) mg/dL 01/20/21 Range/Units 11:51 POC Glucose 135 H (70-105) mg/dL
[2021-01-21] MEDS: HEPARIN 5,000 UNIT/1 ML VIAL SUB-Q SCH ×3 (05:49→21:27)
[2021-01-21] MEDS: D5W/0.9% NACL 1,000 ML IV SCH ×2 (05:50→21:28)
--- NOTE | 2021-01-21 11:51 | Fluoroscopy Report ---
MODIFIED BARIUM SWALLOW INDICATION: Risk for aspiration and difficulty swallowing TECHNIQUE: Swallowing was evaluated in the lateral position under direct fluoroscopy. FINDINGS: The patient was brought down to the radiology department for modified barium swallow. The p atient appeared obtunded and would not cooperate for the examination. IMPRESSION: Unsuccessful modified barium swallow. The patient would not cooperate. Fluoroscopic time: 0.5 minutes Number of fluoroscopic images: 1 Signer Name: Refugio Donahue Jr, MD Signed: 01/21/2021 11:46 AM Workstation Name: [id number]
[2021-01-21 12:20] LABS: Hemoglobin 15.2 gm/dl (11.8-15.2); Mean Corpuscular HGB Conc 34 % (32-34); Mean Corpuscular Volume 94 fl (84-94); Platelet Count 260 K/mm3 (140-440); Red Blood Count 4.77 M/mm3 (3.65-5.03)
[2021-01-21 12:41] LABS: Blood Urea Nitrogen 8 mg/dL (9-20); Calcium 9.3 mg/dL (8.4-10.2); Hemolysis Index 53
[2021-01-21 12:44] LABS: BUN/Creatinine Ratio 11
[2021-01-21] MEDS: ASPIRIN EC 325 MG TAB PO SCH (12:44)
[2021-01-21] MEDS: PANTOPRAZOLE 40 MG TAB PO SCH (12:45)
[2021-01-21] MEDS: amLODIPine 10 MG TAB PO SCH (12:45)
[2021-01-21] MEDS: CLOPIDOGREL 75 MG TAB PO SCH (12:45)
--- NOTE | 2021-01-21 14:11 | Progress Note ---
Assessment and Plan 55-year-old male with past medical history of hypertension, hyperlipidemia and previous stroke was brought to the hospital because of right-sided weakness and dysarthria. Family states the patient has been dragging his right lower extremi ty while walking and Overnight the symptoms apparently worsened and EMS was called. A/P -- Acute CVA (cerebral vascular accident) Admit the patient to the medical telemetry. Aspirin 81 mg p.o. daily. Plavix 75 mg p.o. daily. Lipitor 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 is not a candidate for thrombectomy not TPA -CTA neck no significant abnormality -2d echo on july with preserved EF and another study ordered for PFO -MRI of the brain showed left-sided subcortical infarct. consulted PT OT any speech evaluation. We also consulted neurology Patient is nonverbal with dysphagia: failed speech eval, continue tube feeding and IV fluids -- HTN (hypertension), uncontrolled Amlodipine 10 mg p.o. daily. Labetalol 10 mg IV every 6 hours as needed. we will monitor the blood pressure closely Patient is getting medications with tube feeding -- Hyperlipidemia Lipitor 40 mg p.o. daily -- Dysarthria Wait for repeat speech eval, continue tube feeding for now --Right-sided hemiparesis due to CVA Continue PT OT -- DVT prophylaxis Heparin 5000 units subcu every 8 hours for DVT prophylaxis. Protonix 40 mg p.o. daily for GI prophylaxis. Patient is a full code Daily clinical course: 01/16/21 Patient presented with right sided weakness , slurred speech. CT shows acute stroke. MRI ordered, pending. On Aspirin, Plavix, Lipitor patient was seen and evluated by Neurology PT/OT/Speech consulted 01/17/21 Patient presented with right sided weakness , slurred speech. CT shows acute ischemic stroke. MRI ordered, pending. Continue Aspirin,Plavix. Lipitor Keep NPO as per Speech therefore will start tube feeding with Dobhoff PT/OT to see Patient was evaluated by Dr. Jones, Neurology Will likely need acute rehab placement. 01/18/21; patient remains confused with right-sided weakness, unable to parti cipate in swallow eval. continue history, continue TF 01/19: Patient continues to have right-sided hemiparesis, failed swallow eval, intermittently agitated with persistent confusion. Continue restraints. Continue tube feeding diet, adjust BP meds as needed, follow BMP. 01/20/21: Patient tolerating tube feeding with Dobbhoff. Remains restrained. Unable to move right upper and lower extremities, along with dysphagia and confusion. Waiting on repeat speech eval and PT eval. 01/21/21: Unable to do modified barium swallow study today as patient was not cooperative. Speech recommended to continue tube feeding, patient might need PEG tube placement -we will consult GI. Continue PT OT. Subjective Date of service: 01/21/21 Principal diagnosis: right side weakness and worsening speech ouput. Interval history: Patient seen and examined. Medical records and medication list reviewed. Vitals noted, patient remains on restraint Patient with right-sided hemiparesis, aphasia Discussed plan of care at bedside with patient's RN. Objective - Exam Narrative Exam: GENERAL: well-developed obese -[place] male lying on bed appeared to be in no discomfort. HEENT: Normocephalic. Atraumatic. No conjunctival congestion or icterus. Patient has moist mucous membranes. NECK: Supple. Trachea midline. CHEST/LUNGS: Clear to auscultated bilaterally, breathing nonlabored. No wheezes crackles or rhonchi. HEART/CARDIOVASCULAR: Regular in rate and rhythm. S1 and S2 positive. ABDOMEN: Abdomen is soft, nontender. Patient has normal bowel sounds. SKIN: There is no rash. Warm and dry. NEURO: Right-sided hemiparesis, patient is nonverbal MUSCULOSKELETAL: No joint effusion or tenderness. EXTRIMITY: No edema, no cyanosis or clubbing. PSYCH: Agitated and restrained. - Constitutional Vitals: Vital Signs - 12hr 01/21/21 01/21/21 01/21/21 03:48 08:51 09:39 Temperature 99.0 F 97.9 F Pulse Rate 96 H 100 H Respiratory 18 20 Rate Blood Pressure 152/83 174/75 O2 Sat by Pulse 98 96 97 Oximetry - Labs CBC & Chem 7: 01/26/21 05:13 01/26/21 05:13 Labs: Abnormal lab results 01/20/21 01/21/21 01/21/21 Range/Units 17:17 00:06 11:34 BUN 8 L (9-20) mg/dL Creatinine 0.7 L (0.8-1.3) mg/dL POC Glucose 137 H 133 H (70-105) mg/dL
[2021-01-22] MEDS: HEPARIN 5,000 UNIT/1 ML VIAL SUB-Q SCH ×3 (05:55→21:16)
[2021-01-22] MEDS: D5W/0.9% NACL 1,000 ML IV SCH (06:52)
[2021-01-22] MEDS: amLODIPine 10 MG TAB PO SCH (10:54)
[2021-01-22] MEDS: ASPIRIN EC 325 MG TAB PO SCH (10:54)
[2021-01-22] MEDS: PANTOPRAZOLE 40 MG TAB PO SCH (10:56)
[2021-01-22] MEDS: CLOPIDOGREL 75 MG TAB PO SCH (10:57)
--- NOTE | 2021-01-22 14:24 | Progress Note ---
Assessment and Plan 55-year-old male with past medical history of hypertension, hyperlipidemia and previous stroke was brought to the hospital because of right-sided weakness and dysarthria. Family states the patient has been dragging his right lower extremi ty while walking and Overnight the symptoms apparently worsened and EMS was called. A/P -- Acute CVA (cerebral vascular accident) Admit the patient to the medical telemetry. Aspirin 81 mg p.o. daily. Plavix 75 mg p.o. daily. Lipitor 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 is not a candidate for thrombectomy not TPA -CTA neck no significant abnormality -2d echo on july with preserved EF and another study ordered for PFO -MRI of the brain showed left-sided subcortical infarct. consulted PT OT any speech evaluation. We also consulted neurology Patient is nonverbal with dysphagia: failed speech eval, continue tube feeding and IV fluids -- HTN (hypertension), uncontrolled Amlodipine 10 mg p.o. daily. Labetalol 10 mg IV every 6 hours as needed. we will monitor the blood pressure closely Patient is getting medications with tube feeding -- Hyperlipidemia Lipitor 40 mg p.o. daily -- Dysarthria Wait for repeat speech eval, continue tube feeding for now --Right-sided hemiparesis due to CVA Continue PT OT -- DVT prophylaxis Heparin 5000 units subcu every 8 hours for DVT prophylaxis. Protonix 40 mg p.o. daily for GI prophylaxis. Patient is a full code Daily clinical course: 01/16/21 Patient presented with right sided weakness , slurred speech. CT shows acute stroke. MRI ordered, pending. On Aspirin, Plavix, Lipitor patient was seen and evluated by Neurology PT/OT/Speech consulted 01/17/21 Patient presented with right sided weakness , slurred speech. CT shows acute ischemic stroke. MRI ordered, pending. Continue Aspirin,Plavix. Lipitor Keep NPO as per Speech therefore will start tube feeding with Dobhoff PT/OT to see Patient was evaluated by Dr. Jones, Neurology Will likely need acute rehab placement. 01/18/21; patient remains confused with right-sided weakness, unable to parti cipate in swallow eval. continue history, continue TF 01/19: Patient continues to have right-sided hemiparesis, failed swallow eval, intermittently agitated with persistent confusion. Continue restraints. Continue tube feeding diet, adjust BP meds as needed, follow BMP. 01/20/21: Patient tolerating tube feeding with Dobbhoff. Remains restrained. Unable to move right upper and lower extremities, along with dysphagia and confusion. Waiting on repeat speech eval and PT eval. 01/21/21: Unable to do modified barium swallow study today as patient was not cooperative. Speech recommended to continue tube feeding, patient might need PEG tube placement -we will consult GI. Continue PT OT. 01/22/21: Continue supportive care, wait for repeat speech eval. Continue PT OT. Pending GI recommendation for PEG placement. Subjective Date of service: 01/22/21 Principal diagnosis: right side weakness and worsening speech ouput. Interval history: Patient seen and examined. Medical records and medication list reviewed. Vitals noted, patient remains on restraint Patient with right-sided hemiparesis, aphasia Discussed plan of care at bedside with patient's RN. Objective - Exam Narrative Exam: GENERAL: well-developed obese -[place] male lying on bed appeared to be in no discomfort. HEENT: Normocephalic. Atraumatic. No conjunctival congestion or icterus. Patient has moist mucous membranes. NECK: Supple. Trachea midline. CHEST/LUNGS: Clear to auscultated bilaterally, breathing nonlabored. No wheezes crackles or rhonchi. HEART/CARDIOVASCULAR: Regular in rate and rhythm. S1 and S2 positive. ABDOMEN: Abdomen is soft, nontender. Patient has normal bowel sounds. SKIN: There is no rash. Warm and dry. NEURO: Right-sided hemiparesis, patient is nonverbal MUSCULOSKELETAL: No joint effusion or tenderness. EXTRIMITY: No edema, no cyanosis or clubbing. PSYCH: Agitated and restrained. - Constitutional Vitals: Vital Signs - 12hr 01/22/21 01/22/21 01/22/21 03:55 05:59 08:10 Temperature 98.6 F 98.9 F Pulse Rate 96 H 92 H 91 H Respiratory 20 20 Rate Blood Pressure 190/96 164/99 O2 Sat by Pulse 100 95 95 Oximetry 01/22/21 11:21 Temperature 98.9 F Pulse Rate 89 Respiratory 20 Rate Blood Pressure 159/95 O2 Sat by Pulse 94 Oximetry - Labs CBC & Chem 7: 01/26/21 05:13 01/26/21 05:13 Labs: Abnormal lab results 01/21/21 01/21/21 01/22/21 Range/Units 16:27 23:03 06:18 POC Glucose 131 H 138 H 175 H (70-105) mg/dL
[2021-01-23] MEDS: HEPARIN 5,000 UNIT/1 ML VIAL SUB-Q SCH ×3 (06:06→21:17)
--- NOTE | 2021-01-23 08:29 | Consultation ---
DATE OF CONSULTATION: 01/22/2021 INDICATIONS: 1. Dysphagia. 2. Possible PEG evaluation. HISTORY OF PRESENT ILLNESS: The patient is a 55-year-old black male with history of hypertension, high cholesterol, previous CVA, brought in for right-sided weakness and dysarthria. The patient has been noted to be dragging his right lower extremity and was subsequently brought in. The patient, of course as noted above, had a previous CVA. The patient has had poor p.o. intake and when taking a swallow evaluation, would not complete the test. A question of whether or not the patient may need a PEG was brought up and GI is consulted to aid in management. No other specific GI complaints. PAST MEDICAL HISTORY: 1. Hypertension. 2. High cholesterol. 3. Status post CVA. MEDICATIONS: Reviewed and updated in chart. ALLERGIES: No known drug allergies. SOCIAL HISTORY: Denies alcohol, tobacco or drug abuse. FAMILY HISTORY: No colon cancer, IBD, or liver disease. REVIEW OF SYSTEMS: GENERAL: Some weakness. HEENT: No visual complaints or tinnitus. PULMONARY: No shortness of breath or chest pain. GASTROINTESTINAL: Reports no specific complaints All points of 10-point review of systems otherwise negative. PHYSICAL EXAMINATION: VITAL SIGNS: Temperature of 98.9, pulse 89, respirations 20, blood pressure 159/60. GENERAL: Fairly nourished male, in no acute distress. HEENT: Pupils are round and reactive. PULMONARY: Clear to auscultation bilaterally. CARDIOVASCULAR: Normal S1, S2. ABDOMEN: Soft. SKIN: No obvious rashes. LABORATORY DATA: Pertinent for white count of 10, hemoglobin and hematocrit of 15 and 45, platelet count of 260. Chem-7 within normal limits. Swallow evaluation from showed the patient placed food in his mouth, but would not awaken enough to complete the test. ASSESSMENT AND PLAN: A 55-year-old with medical problems as noted above, now been seen by GI for possible PEG tube placement. The patient has had improvements in alertness today, but diminished cognitation. The patient did have a trial of pureed and thin liquids today with no problems or signs of airway compromise. Management as noted below. PLAN: 1. Per speech note, we will have a full modified barium swallow evaluation in the upcoming days. We will follow those results. 2. Continue n.p.o. for now with alternate nutrition. 3. Continue other medications. 4. We will await modified barium swallow results and consider PEG tube based on progress. TID: [id number] RECEIPT: [id number] DICK
[2021-01-23] MEDS: amLODIPine 10 MG TAB PO SCH (09:17)
[2021-01-23] MEDS: PANTOPRAZOLE 40 MG TAB PO SCH (09:17)
[2021-01-23] MEDS: ASPIRIN EC 325 MG TAB PO SCH (09:18)
[2021-01-23] MEDS: CLOPIDOGREL 75 MG TAB PO SCH (09:18)
--- NOTE | 2021-01-23 15:06 | Progress Note ---
Assessment and Plan 55-year-old male with past medical history of hypertension, hyperlipidemia and previous stroke was brought to the hospital because of right-sided weakness and dysarthria. Family states the patient has been dragging his right lower extremi ty while walking and Overnight the symptoms apparently worsened and EMS was called. A/P -- Acute CVA (cerebral vascular accident) Admit the patient to the medical telemetry. Aspirin 81 mg p.o. daily. Plavix 75 mg p.o. daily. Lipitor 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 is not a candidate for thrombectomy not TPA -CTA neck no significant abnormality -2d echo on july with preserved EF and another study ordered for PFO -MRI of the brain showed left-sided subcortical infarct. consulted PT OT any speech evaluation. We also consulted neurology Patient is nonverbal with dysphagia: failed speech eval, continue tube feeding and IV fluids Patient need PEG tube -- HTN (hypertension), uncontrolled Amlodipine 10 mg p.o. daily. Labetalol 10 mg IV every 6 hours as needed. we will monitor the blood pressure closely Patient is getting medications with tube feeding -- Hyperlipidemia Lipitor 40 mg p.o. daily -- Dysarthria continue tube feeding for now with a Dobbhoff Failed swallow eval, need PEG tube, GI consulted --Right-sided hemiparesis due to CVA Continue PT OT -- DVT prophylaxis Heparin 5000 units subcu every 8 hours for DVT prophylaxis. Protonix 40 mg p.o. daily for GI prophylaxis. Patient is a full code Daily clinical course: 01/16/21 Patient presented with right sided weakness , slurred speech. CT shows acute stroke. MRI ordered, pending. On Aspirin, Plavix, Lipitor patient was seen and evluated by Neurology PT/OT/Speech consulted 01/17/21 Patient presented with right sided weakness , slurred speech. CT shows acute ischemic stroke. MRI ordered, pending. Continue Aspirin,Plavix. Lipitor Keep NPO as per Speech therefore will start tube feeding with Dobhoff PT/OT to see Patient was evaluated by Dr. Jones, Neurology Will likely need acute rehab placement. 01/18/21; patient remains confused with right-sided weakness, unable to participate in swallow eval. continue history, continue TF 01/19: Patient continues to have right-sided hemiparesis, failed swallow eval, intermittently agitated with persistent confusion. Continue restraints. Continue tube feeding diet, adjust BP meds as needed, follow BMP. 01/20/21: Patient tolerating tube feeding with Dobbhoff. Remains restrained. Unable to move right upper and lower extremities, along with dysphagia and confusion. Waiting on repeat speech eval and PT eval. 01/21/21: Unable to do modified barium swallow study today as patient was not cooperative. Speech recommended to continue tube feeding, patient might need PEG tube placement -we will consult GI. Continue PT OT. 01/22/21: Continue supportive care, wait for repeat speech eval. Continue PT OT. Pending GI recommendation for PEG placement. 01/23/21: Clinically stable, remain restraint and confused nonverbal. Unable to participate in the swallow eval, need PEG tube. Pending GI recommendation. Continue tube feeding for now with Dobbhoff, PT OT eval Subjective Date of service: 01/23/21 Principal diagnosis: right side weakness and worsening speech ouput. Interval history: Patient seen and examined. Medical records and medication list reviewed. Vitals noted, patient remains on restraint Patient with right-sided hemiparesis, aphasia Discussed plan of care at bedside with patient's RN. Objective - Exam Narrative Exam: GENERAL: well-developed obese -[place] male lying on bed appeared to be in no discomfort. HEENT: Normocephalic. Atraumatic. No conjunctival congestion or icterus. Patient has moist mucous membranes. NECK: Supple. Trachea midline. CHEST/LUNGS: Clear to auscultated bilaterally, breathing nonlabored. No wheezes crackles or rhonchi. HEART/CARDIOVASCULAR: Regular in rate and rhythm. S1 and S2 positive. ABDOMEN: Abdomen is soft, nontender. Patient has normal bowel sounds. SKIN: There is no rash. Warm and dry. NEURO: Right-sided hemiparesis, patient is nonverbal MUSCULOSKELETAL: No joint effusion or tenderness. EXTRIMITY: No edema, no cyanosis or clubbing. PSYCH: Agitated and restrained. - Constitutional Vitals: Vital Signs - 12hr 01/23/21 01/23/21 01/23/21 04:44 08:20 10:00 Temperature 98.5 F 98.6 F Pulse Rate 78 84 88 Respiratory 20 20 Rate Blood Pressure 179/87 182/92 O2 Sat by Pulse 95 92 Oximetry 01/23/21 11:48 Temperature 98.6 F Pulse Rate 92 H Respiratory 20 Rate Blood Pressure 166/100 O2 Sat by Pulse 95 Oximetry - Labs CBC & Chem 7: 01/26/21 05:13 01/26/21 05:13 Labs: Abnormal lab results 01/23/21 01/23/21 Range/Units 00:03 06:04 POC Glucose 107 H 123 H (70-105) mg/dL
--- NOTE | 2021-01-23 17:01 | Gastroenterology Progress Note ---
Assessment and Plan 1. GI: pt w/ decrease po intake and not able to complete swallow eval - await any further surgery input - possible PEG placement 01/25 - will follow Subjective Date of service: 01/23/21 Principal diagnosis: right side weakness and worsening speech ouput. Interval history: - no specific GI complaints overnight Objective - Constitutional Vitals: Temp Pulse Resp BP Pulse Ox 98.6 F 92 H 20 166/100 95 01/23/21 11:48 01/23/21 11:48 01/23/21 11:48 01/23/21 11:48 01/23/21 11:48 - EENT Eyes: PERRL - Respiratory Respiratory: bilateral: CTA - Cardiovascular Rhythm: regular Heart Sounds: Present: S1 & S2 - Gastrointestinal General gastrointestinal: Present: soft, non-tender, non-distended - Labs CBC & Chem 7: 01/21/21 11:34 01/21/21 11:34 Labs: Laboratory Results - last 24 hr 01/23/21 01/23/21 00:03 06:04 POC Glucose 107 H 123 H
[2021-01-24] MEDS: HEPARIN 5,000 UNIT/1 ML VIAL SUB-Q SCH ×4 (04:58→21:52)
[2021-01-24] MEDS: D5W/0.9% NACL 1,000 ML IV SCH (04:59)
[2021-01-24] MEDS: ASPIRIN EC 325 MG TAB PO SCH (10:57)
[2021-01-24] MEDS: amLODIPine 10 MG TAB PO SCH (10:57)
[2021-01-24] MEDS: PANTOPRAZOLE 40 MG TAB PO SCH (10:57)
[2021-01-24] MEDS: CLOPIDOGREL 75 MG TAB PO SCH (10:58)
[2021-01-24 11:39] LABS: Blood Urea Nitrogen 8 mg/dL (9-20); Calcium 10.1 mg/dL (8.4-10.2); Hemolysis Index 5
[2021-01-24 11:42] LABS: BUN/Creatinine Ratio 13
--- NOTE | 2021-01-24 15:09 | Progress Note ---
Assessment and Plan 55-year-old male with past medical history of hypertension, hyperlipidemia and previous stroke was brought to the hospital because of right-sided weakness and dysarthria. Family states the patient has been dragging his right lower extremi ty while walking and Overnight the symptoms apparently worsened and EMS was called. A/P -- Acute CVA (cerebral vascular accident) Admit the patient to the medical telemetry. Aspirin 81 mg p.o. daily. Plavix 75 mg p.o. daily. Lipitor 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 is not a candidate for thrombectomy not TPA -CTA neck no significant abnormality -2d echo on july with preserved EF and another study ordered for PFO -MRI of the brain showed left-sided subcortical infarct. consulted PT OT any speech evaluation. We also consulted neurology Patient is nonverbal with dysphagia: failed speech eval, continue tube feeding and IV fluids Patient need PEG tube -- HTN (hypertension), uncontrolled Amlodipine 10 mg p.o. daily. Labetalol 10 mg IV every 6 hours as needed. we will monitor the blood pressure closely Patient is getting medications with tube feeding -- Hyperlipidemia Lipitor 40 mg p.o. daily -- Dysarthria continue tube feeding for now with a Dobbhoff Failed swallow eval, need PEG tube, GI consulted --Right-sided hemiparesis due to CVA Continue PT OT -- DVT prophylaxis Heparin 5000 units subcu every 8 hours for DVT prophylaxis. Protonix 40 mg p.o. daily for GI prophylaxis. Patient is a full code Daily clinical course: 01/16/21 Patient presented with right sided weakness , slurred speech. CT shows acute stroke. MRI ordered, pending. On Aspirin, Plavix, Lipitor patient was seen and evluated by Neurology PT/OT/Speech consulted 01/17/21 Patient presented with right sided weakness , slurred speech. CT shows acute ischemic stroke. MRI ordered, pending. Continue Aspirin,Plavix. Lipitor Keep NPO as per Speech therefore will start tube feeding with Dobhoff PT/OT to see Patient was evaluated by Dr. Jones, Neurology Will likely need acute rehab placement. 01/18/21; patient remains confused with right-sided weakness, unable to participate in swallow eval. continue history, continue TF 01/19: Patient continues to have right-sided hemiparesis, failed swallow eval, intermittently agitated with persistent confusion. Continue restraints. Continue tube feeding diet, adjust BP meds as needed, follow BMP. 01/20/21: Patient tolerating tube feeding with Dobbhoff. Remains restrained. Unable to move right upper and lower extremities, along with dysphagia and confusion. Waiting on repeat speech eval and PT eval. 01/21/21: Unable to do modified barium swallow study today as patient was not cooperative. Speech recommended to continue tube feeding, patient might need PEG tube placement -we will consult GI. Continue PT OT. 01/22/21: Continue supportive care, wait for repeat speech eval. Continue PT OT. Pending GI recommendation for PEG placement. 01/23/21: Clinically stable, remain restraint and confused nonverbal. Unable to participate in the swallow eval, need PEG tube. Pending GI recommendation. Continue tube feeding for now with Dobbhoff, PT OT eval 01/24/21: Continue tube feeding with Dobbhoff, continue PT OT as scheduled. Monitor vitals and BMP. Plan for PEG tube placement tomorrow. Subjective Date of service: 01/24/21 Principal diagnosis: right side weakness and worsening speech ouput. Interval history: Patient seen and examined. Medical records and medication list reviewed. Vitals noted, patient remains on restraint Patient with right-sided hemiparesis, aphasia Discussed plan of care at bedside with patient's RN. Objective - Exam Narrative Exam: GENERAL: well-developed obese -[place] male lying on bed appeared to be in no discomfort. HEENT: Normocephalic. Atraumatic. No conjunctival congestion or icterus. Patient has moist mucous membranes. NECK: Supple. Trachea midline. CHEST/LUNGS: Clear to auscultated bilaterally, breathing nonlabored. No wheezes crackles or rhonchi. HEART/CARDIOVASCULAR: Regular in rate and rhythm. S1 and S2 positive. ABDOMEN: Abdomen is soft, nontender. Patient has normal bowel sounds. SKIN: There is no rash. Warm and dry. NEURO: Right-sided hemiparesis, patient is nonverbal MUSCULOSKELETAL: No joint effusion or tenderness. EXTRIMITY: No edema, no cyanosis or clubbing. PSYCH: Agitated and restrained. - Constitutional Vitals: Vital Signs - 12hr 07/26/21 07/26/21 07/26/21 04:39 08:12 10:00 Temperature 97.4 F L Pulse Rate 106 H 86 Respiratory 22 Rate Blood Pressure 180/85 136/85 O2 Sat by Pulse 95 96 Oximetry 01/24/21 12:04 Temperature 99.2 F Pulse Rate 96 H Respiratory 22 Rate Blood Pressure 173/92 O2 Sat by Pulse 93 Oximetry - Labs CBC & Chem 7: 01/26/21 05:13 01/26/21 05:13 Labs: Abnormal lab results 01/24/21 Range/Units 10:44 Sodium 135 L (137-145) mmol/L Chloride 96.3 L (98-107) mmol/L BUN 8 L (9-20) mg/dL Creatinine 0.6 L (0.8-1.3) mg/dL
--- NOTE | 2021-01-24 15:24 | Gastroenterology Progress Note ---
Assessment and Plan GI: no GI issues overnight - continue current meds - plan EGD/peg in am if ok w/ primary team Subjective Date of service: 01/24/21 Principal diagnosis: right side weakness and worsening speech ouput. Interval history: - no GI complaints overnight per staff Objective - Constitutional Vitals: Temp Pulse Resp BP Pulse Ox 99.2 F 96 H 22 173/92 93 01/24/21 12:04 01/24/21 12:04 01/24/21 12:04 01/24/21 12:04 01/24/21 12:04 General appearance: no acute distress - EENT Eyes: PERRL - Respiratory Respiratory: bilateral: rhonchi - Cardiovascular Rhythm: regular Heart Sounds: Present: S1 & S2 - Gastrointestinal General gastrointestinal: Present: soft, non-tender, non-distended - Labs CBC & Chem 7: 01/21/21 11:34 01/24/21 10:44 Labs: Laboratory Results - last 24 hr 01/23/21 01/24/21 23:57 10:44 Sodium 135 L Potassium 3.8 Chloride 96.3 L Carbon Dioxide 28 Anion Gap 15 BUN 8 L Creatinine 0.6 L Estimated GFR > 60 BUN/Creatinine Ratio 13 Glucose 99 POC Glucose 100 Calcium 10.1
[2021-01-24] MEDS ORDERED: SODIUM CHLORIDE 0.9% 1000 ML 1,000 ML IV SCH (17:30)
[2021-01-25] MEDS: HEPARIN 5,000 UNIT/1 ML VIAL SUB-Q SCH ×3 (06:32→21:06)
[2021-01-25 06:55] LABS: INR 1.05 (0.87-1.13)
[2021-01-25 06:56] LABS: Partial Thromboplastin Time 34.2 Sec. (24.2-36.6)
[2021-01-25] MEDS: PANTOPRAZOLE 40 MG TAB PO SCH (09:29)
[2021-01-25] MEDS: ASPIRIN EC 325 MG TAB PO SCH (09:29)
[2021-01-25] MEDS: amLODIPine 10 MG TAB PO SCH (09:29)
[2021-01-25] MEDS ORDERED: ceFAZolin/Water 2 GM/20 ML 2 GM/20 ML SYRINGE IV NR (12:30)
--- NOTE | 2021-01-25 12:45 | Anesthesia Day of Surgery ---
Anesthesia Day of Surgery - Day of Surgery Patient Examined: Yes Patient H&P Reviewed: Yes Patient is NPO: Yes
--- NOTE | 2021-01-25 12:48 | Anesthesia Consultation ---
Anesthesia Consult and Med Hx Date of service: 01/25/21 - Airway Anesthetic Teeth Evaluation: Poor ROM Head & Neck: Adequate Mental/Hyoid Distance: Adequate Mallampati Class: Class II Intubation Access Assessment: Probably Good - Pre-Operative Health Status ASA Pre-Surgery Classification: ASA3 Proposed Anesthetic Plan: MAC - Cardiovascular System Hx Hypertension: Yes - Central Nervous System CVA: Yes (Right-sided weakness) - Other Systems Hx Obesity: Yes
[2021-01-25] MEDS ORDERED: LIDOCAINE MPF (2%) 20 MG/1 ML VIAL 5 ML ONE (12:51)
[2021-01-25] MEDS ORDERED: propofoL 200 MG/20 ML VIAL IV ONE (12:51)
[2021-01-25] MEDS ORDERED: fentaNYL 100 MCG/2 ML INJ ONE (12:51)
[2021-01-25] MEDS ORDERED: ONDANSETRON 4 MG/2 ML INJ ONE (12:51)
--- NOTE | 2021-01-25 13:54 | Post Operative Note ---
Pre-op diagnosis: dysphagia Post-op diagnosis: same Findings: EGD: hiatal hernia - mild gastritis - 20 F pull peg placed, bumper at 5 cm Procedure: EGD/PEG Anesthesia: MAC Surgeon: CACHORRO MOTT Estimated blood loss: none Pathology: list Specimen disposition: to lab Condition: stable Disposition: floor
--- NOTE | 2021-01-25 14:14 | Operative Report ---
DATE OF SURGERY: 01/25/2021 PROCEDURE PERFORMED: Esophagogastroduodenoscopy with PEG tube placement. INDICATION: 1. Dysphagia. 2. Weight loss. MEDICATIONS: Propofol per PROJECT DEVELOPMENT ENGINEER. COMPLICATIONS: None. DESCRIPTION OF PROCEDURE: The patient was brought to the procedure suite. The patient had the procedure discussed with him at length. All risks, complications, and benefits were discussed, after which the patient signed for the procedure performed. The patient was placed in left lateral decubitus position. Mouth block placed in the patient's oral cavity. After adequate sedation medication as above, the endoscope placed in the mouth and brought to the level of second portion of duodenum. Retroflexion view performed. The patient's vital signs remained stable throughout the procedure. FINDINGS: There was a small to medium hiatal hernia at GE junction, 40 cm from the gums. The esophagus otherwise appeared to be normal. Mild gastritis noted in stomach. Stomach otherwise appeared to be normal. The duodenum appeared to be normal. Retroflexion view performed in the stomach showed no other pathology other than noted above. After this inspection using standard technique and transillumination, the area for adequate placement of the PEG tube was found in the gastric body. Using standard technique, a 20-Thai pull PEG was then placed. Bumper was noted to be 5 cm. Post-procedure appearance was satisfactory. The patient tolerated the procedure well. No complications during the procedure. IMPRESSION: 1. Hiatal hernia. 2. Mild gastritis. Otherwise, normal esophagogastroduodenoscopy. 3. PEG tube placed as above without obvious complications. RECOMMENDATIONS: 1. Standard PEG tube orders, see chart. 2. Watch for signs of bleeding or infection. 3. Nutrition consult. 4. Okay to use in 6 hours. 5. For followup in a.m. TID: [id number] RECEIPT: [id number] [facility]
--- NOTE | 2021-01-25 14:46 | Post Anesthesia Evaluation ---
- Post Anesthesia Evaluation Patient Participated: Yes Airway Patent: Yes Stable Respiratory Function: Yes Nausea/Vomiting: No Temp > 96.8F: Yes Pain Manageable: Yes Adequeate Hydration: Yes Anesthesia Complications: No Block Receding Appropriately: Not Applicable Patient on Ventilator: No
[2021-01-25] MEDS: D5W/0.9% NACL 1,000 ML IV SCH (16:11)
--- NOTE | 2021-01-25 16:55 | Progress Note ---
Assessment and Plan 55-year-old male with past medical history of hypertension, hyperlipidemia and previous stroke was brought to the hospital because of right-sided weakness and dysarthria. Family stated the patient has been dragging his right lower extremi ty while walking and Overnight the symptoms apparently worsened and EMS was called. A/P -- Acute CVA (cerebral vascular accident) Admit the patient to the medical telemetry. Aspirin 81 mg p.o. daily. Plavix 75 mg p.o. daily. Lipitor 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 is not a candidate for thrombectomy not TPA -CTA neck no significant abnormality -2d echo on july with preserved EF and another study ordered for PFO -MRI of the brain showed left-sided subcortical infarct. consulted PT OT any speech evaluation. We also consulted neurology Patient is nonverbal with dysphagia: failed speech eval, continue tube feeding and IV fluids S/p PEG tube placement today by GI -- HTN (hypertension), uncontrolled Amlodipine 10 mg p.o. daily. Labetalol 10 mg IV every 6 hours as needed. we will monitor the blood pressure closely Patient is getting medications with tube feeding -- Hyperlipidemia Lipitor 40 mg p.o. daily -- Dysarthria continue tube feeding for now with a Dobbhoff Failed swallow eval, placed PEG tube by GI --Right-sided hemiparesis due to CVA Continue PT OT -- DVT prophylaxis Heparin 5000 units subcu every 8 hours for DVT prophylaxis. Protonix 40 mg p.o. daily for GI prophylaxis. Patient is a full code Daily clinical course: 01/16/21 Patient presented with right sided weakness , slurred speech. CT shows acute stroke. MRI ordered, pending. On Aspirin, Plavix, Lipitor patient was seen and evluated by Neurology PT/OT/Speech consulted 01/17/21 Patient presented with right sided weakness , slurred speech. CT shows acute ischemic stroke. MRI ordered, pending. Continue Aspirin,Plavix. Lipitor Keep NPO as per Speech therefore will start tube feeding with Dobhoff PT/OT to see Patient was evaluated by Dr. Jones, Neurology Will likely need acute rehab placement. 01/18/21; patient remains confused with right-sided weakness, unable to participate in swallow eval. continue history, continue TF 01/19: Patient continues to have right-sided hemiparesis, failed swallow eval, in termittently agitated with persistent confusion. Continue restraints. Continue tube feeding diet, adjust BP meds as needed, follow BMP. 01/20/21: Patient tolerating tube feeding with Dobbhoff. Remains restrained. Unable to move right upper and lower extremities, along with dysphagia and confusion. Waiting on repeat speech eval and PT eval. 01/21/21: Unable to do modified barium swallow study today as patient was not cooperative. Speech recommended to continue tube feeding, patient might need PEG tube placement -we will consult GI. Continue PT OT. 01/22/21: Continue supportive care, wait for repeat speech eval. Continue PT OT. Pending GI recommendation for PEG placement. 01/23/21: Clinically stable, remain restraint and confused nonverbal. Unable to participate in the swallow eval, need PEG tube. Pending GI recommendation. Continue tube feeding for now with Dobbhoff, PT OT eval 01/24/21: Continue tube feeding with Dobbhoff, continue PT OT as scheduled. Monitor vitals and BMP. Plan for PEG tube placement tomorrow. Discussed with mother at the bedside and updated her with all clinical details. 01/25/21: s/p Peg placement today. Patient tolerated procedure well, continue IV fluid, wait for tube feeding order once cleared by GI: Consulted dietary. Subjective Date of service: 01/25/21 Principal diagnosis: right side weakness and worsening speech ouput. Interval history: Patient seen and examined. Medical records and medication list reviewed. Vitals noted, patient remains on restraint Patient with right-sided hemiparesis, aphasia Status post PEG tube placement today Discussed plan of care at bedside with patient's RN. Objective - Exam Narrative Exam: GENERAL: well-developed obese -[place] male lying on bed appeared to be in no discomfort. HEENT: Normocephalic. Atraumatic. No conjunctival congestion or icterus. Patient has moist mucous membranes. NECK: Supple. Trachea midline. CHEST/LUNGS: Clear to auscultated bilaterally, breathing nonlabored. No wheezes crackles or rhonchi. HEART/CARDIOVASCULAR: Regular in rate and rhythm. S1 and S2 positive. ABDOMEN: Abdomen is soft, nontender. Patient has normal bowel sounds. SKIN: There is no rash. Warm and dry. NEURO: Right-sided hemiparesis, patient is nonverbal MUSCULOSKELETAL: No joint effusion or tenderness. EXTRIMITY: No edema, no cyanosis or clubbing. PSYCH: Agitated and restrained. - Constitutional Vitals: Vital Signs - 12hr 01/25/21 01/25/21 01/25/21 07:59 09:07 10:00 Temperature 98.7 F Pulse Rate 96 H Respiratory 24 Rate Blood Pressure 150/84 O2 Sat by Pulse 99 94 97 Oximetry 01/25/21 01/25/21 01/25/21 12:43 13:40 13:45 Temperature 98.6 F 97.2 F L Pulse Rate 103 H 102 H 101 H Respiratory 17 24 24 Rate Blood Pressure 174/93 157/83 148/79 O2 Sat by Pulse 97 100 100 Oximetry 01/25/21 01/25/21 01/25/21 13:50 14:00 14:15 Temperature 97.1 F L Pulse Rate 100 H 96 H 90 Respiratory 24 24 20 Rate Blood Pressure 153/81 178/88 165/84 O2 Sat by Pulse 100 100 98 Oximetry - Labs CBC & Chem 7: 01/26/21 05:13 01/26/21 05:13
[2021-01-26] MEDS: D5W/0.9% NACL 1,000 ML IV SCH ×2 (05:21→18:40)
[2021-01-26] MEDS: HEPARIN 5,000 UNIT/1 ML VIAL SUB-Q SCH ×3 (05:22→22:31)
[2021-01-26 06:30] LABS: Basophils # (Auto) 0.1 K/mm3 (0.0-0.1); Basophils % (Auto) 0.5 % (0.0-1.8); Eosinophils # (Auto) 0.5 K/mm3 (0.0-0.4); Hematocrit 44.5 % (35.5-45.6); Lymphocytes # (Auto) 1.8 K/mm3 (1.2-5.4); Lymphocytes % (Auto) 15.4 % (13.4-35.0); Mean Corpuscular HGB Conc 34 % (32-34); Mean Corpuscular Volume 95 fl (84-94); Monocytes # (Auto) 1.7 K/mm3 (0.0-0.8); Monocytes % (Auto) 13.9 % (0.0-7.3); Platelet Count 272 K/mm3 (140-440); Red Blood Count 4.69 M/mm3 (3.65-5.03); Red Cell Distribution Width 13.6 % (13.2-15.2)
[2021-01-26 06:40] LABS: Blood Urea Nitrogen 9 mg/dL (9-20); Calcium 9.3 mg/dL (8.4-10.2); Hemolysis Index 16
[2021-01-26 06:42] LABS: BUN/Creatinine Ratio 15
[2021-01-26] MEDS: ASPIRIN EC 325 MG TAB PO SCH (12:03)
[2021-01-26] MEDS: PANTOPRAZOLE 40 MG TAB PO SCH (12:03)
[2021-01-26] MEDS: ASPIRIN 325 MG TAB PO SCH (12:51)
[2021-01-26] MEDS: LANSOPRAZOLE 30 MG SOLUTAB FEEDTUBE SCH (12:51)
[2021-01-26] MEDS: amLODIPine 10 MG TAB PO SCH (12:51)
[2021-01-26] MEDS: CLOPIDOGREL 75 MG TAB PO SCH (13:36)
--- NOTE | 2021-01-26 14:49 | Gastroenterology Progress Note ---
Assessment and Plan 1. GI: s/p egd/peg w/o obvious complications - ok to use peg as needed - will signs off, call if needed Subjective Date of service: 01/26/21 Principal diagnosis: right side weakness and worsening speech ouput. Interval history: - no GI issues overnight Objective - Constitutional Vitals: Temp Pulse Resp BP Pulse Ox 97.5 F L 90 22 142/85 97 01/26/21 11:43 01/26/21 11:43 01/26/21 11:43 01/26/21 11:43 01/26/21 11:43 General appearance: no acute distress - EENT Eyes: PERRL - Respiratory Respiratory: bilateral: CTA - Cardiovascular Rhythm: regular Heart Sounds: Present: S1 & S2 - Gastrointestinal General gastrointestinal: Present: soft, non-tender, non-distended - Labs CBC & Chem 7: 01/26/21 05:13 01/26/21 05:13 Labs: Laboratory Results - last 24 hr 01/25/21 01/26/21 01/26/21 18:20 00:04 05:13 WBC 11.9 H RBC 4.69 Hgb 15.0 Hct 44.5 MCV 95 H MCH 32 MCHC 34 RDW 13.6 Plt Count 272 Lymph % (Auto) 15.4 [place] % (Auto) 13.9 H Eos % (Auto) 4.0 Baso % (Auto) 0.5 Lymph # (Auto) 1.8 [place] # (Auto) 1.7 H Eos # (Auto) 0.5 H Baso # (Auto) 0.1 Seg Neutrophils % 66.2 Seg Neutrophils # 7.9 H Sodium Potassium Chloride Carbon Dioxide Anion Gap BUN Creatinine Estimated GFR BUN/Creatinine Ratio Glucose POC Glucose 97 120 H Calcium 01/26/21 01/26/21 01/26/21 05:13 06:34 12:17 WBC RBC Hgb Hct MCV MCH MCHC RDW Plt Count Lymph % (Auto) [place] % (Auto) Eos % (Auto) Baso % (Auto) Lymph # (Auto) [place] # (Auto) Eos # (Auto) Baso # (Auto) Seg Neutrophils % Seg Neutrophils # Sodium 135 L Potassium 4.1 Chloride 98.9 Carbon Dioxide 23 Anion Gap 17 BUN 9 Creatinine 0.6 L Estimated GFR > 60 BUN/Creatinine Ratio 15 Glucose 100 POC Glucose 105 112 H Calcium 9.3
--- NOTE | 2021-01-26 16:54 | Progress Note ---
Assessment and Plan 55-year-old male with past medical history of hypertension, hyperlipidemia and previous stroke w/o any residual weakness was brought to the hospital because of right-sided weakness and dysarthria. Family stated the patient has been draggi ng his right lower extremity while walking and Overnight the symptoms apparently worsened and EMS was called. Patient was admitted with stroke protocol. A/P -- Acute CVA (cerebral vascular accident) Admitted the patient to the medical telemetry. Aspirin 81 mg p.o. daily. Plavix 75 mg p.o. daily. Lipitor 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 is not a candidate for thrombectomy not TPA -CTA neck no significant abnormality -2d echo on july with preserved EF and another study ordered for PFO -MRI of the brain showed left-sided subcortical infarct. consulted PT OT any speech evaluation. We also consulted neurology Patient is nonverbal with dysphagia: failed speech eval, continue tube feeding and IV fluids S/p PEG tube placement by GI -- HTN (hypertension), uncontrolled Amlodipine 10 mg p.o. daily. Labetalol 10 mg IV every 6 hours as needed. we will monitor the blood pressure closely Patient is getting medications with tube feeding -- Hyperlipidemia Lipitor 40 mg daily -- Dysarthria/dysphagia s/p TF with a Dobbhoff Failed swallow eval, placed PEG tube by GI cont TF with PEG tub --Right-sided hemiparesis due to CVA Continue PT OT -- DVT prophylaxis Heparin 5000 units subcu every 8 hours for DVT prophylaxis. Protonix 40 mg p.o. daily for GI prophylaxis. Patient is a full code Daily clinical course: 01/16/21 Patient presented with right sided weakness , slurred speech. CT shows acute stroke. MRI ordered, pending. On Aspirin, Plavix, Lipitor patient was seen and evluated by Neurology PT/OT/Speech consulted 01/17/21 Patient presented with right sided weakness , slurred speech. CT shows acute ischemic stroke. MRI ordered, pending. Continue Aspirin,Plavix. Lipitor Keep NPO as per Speech therefore will start tube feeding with Dobhoff PT/OT to see Patient was evaluated by Dr. Jones, Neurology Will likely need acute rehab placement. 01/18/21; patient remains confused with right-sided weakness, unable to participate in swallow eval. continue history, continue TF 01/19: Patient continues to have right-sided hemiparesis, failed swallow eval, intermittently agitated with persistent confusion. Continue restraints. Continue tube feeding diet, adjust BP meds as needed, follow BMP. 01/20/21: Patient tolerating tube feeding with Dobbhoff. Remains restrained. Unable to move right upper and lower extremities, along with dysphagia and confusion. Waiting on repeat speech eval and PT eval. 01/21/21: Unable to do modified barium swallow study today as patient was not cooperative. Speech recommended to continue tube feeding, patient might need PEG tube placement -we will consult GI. Continue PT OT. 01/22/21: Continue supportive care, wait for repeat speech eval. Continue PT OT. Pending GI recommendation for PEG placement. 01/23/21: Clinically stable, remain restraint and confused nonverbal. Unable to participate in the swallow eval, need PEG tube. Pending GI recommendation. Continue tube feeding for now with Dobbhoff, PT OT eval 01/24/21: Continue tube feeding with Dobbhoff, continue PT OT as scheduled. Monitor vitals and BMP. Plan for PEG tube placement tomorrow. Discussed with mother at the bedside and updated her with all clinical details. 01/25/21: s/p Peg placement today. Patient tolerated procedure well, continue IV fluid, wait for tube feeding order once cleared by GI: Consulted dietary. 01/26/21: initiated TF with PEG today, follow CBC/BMP. CM working on placement. cont supportive care Subjective Date of service: 01/26/21 Principal diagnosis: right side weakness and worsening speech ouput. Interval history: Patient seen and examined. Medical records and medication list reviewed. Vitals noted, patient remains on restraint Patient with right-sided hemiparesis, aphasia Status post PEG tube placement yesterday: initiated Tf today Discussed plan of care at bedside with patient's RN. Objective - Exam Narrative Exam: GENERAL: well-developed obese -[place] male lying on bed appeared to be in no discomfort. HEENT: Normocephalic. Atraumatic. No conjunctival congestion or icterus. Patient has moist mucous membranes. NECK: Supple. Trachea midline. CHEST/LUNGS: Clear to auscultated bilaterally, breathing nonlabored. No wheezes crackles or rhonchi. HEART/CARDIOVASCULAR: Regular in rate and rhythm. S1 and S2 positive. ABDOMEN: Abdomen is soft, nontender. Patient has normal bowel sounds. PEG in place SKIN: There is no rash. Warm and dry. NEURO: Right-sided hemiparesis, patient is nonverbal MUSCULOSKELETAL: No joint effusion or tenderness. EXTRIMITY: No edema, no cyanosis or clubbing. PSYCH: Agitated and restrained. - Constitutional Vitals: Vital Signs - 12hr 01/26/21 01/26/21 01/26/21 07:13 10:00 11:43 Temperature 99.3 F 97.5 F L Pulse Rate 92 H 94 H 90 Respiratory 22 18 22 Rate Blood Pressure 128/77 142/85 O2 Sat by Pulse 100 98 97 Oximetry 01/26/21 01/26/21 15:43 15:47 Temperature 98.8 F Pulse Rate 92 H Respiratory 24 Rate Blood Pressure 148/82 O2 Sat by Pulse 82 L 96 Oximetry - Labs CBC & Chem 7: 01/26/21 05:13 01/26/21 05:13 Labs: Abnormal lab results 01/26/21 01/26/21 01/26/21 Range/Units 00:04 05:13 05:13 WBC 11.9 H (4.5-11.0) K/mm3 MCV 95 H (84-94) fl [place] % (Auto) 13.9 H (0.0-7.3) % [place] # (Auto) 1.7 H (0.0-0.8) K/mm3 Eos # (Auto) 0.5 H (0.0-0.4) K/mm3 Seg Neutrophils # 7.9 H (1.8-7.7) K/mm3 Sodium 135 L (137-145) mmol/L Creatinine 0.6 L (0.8-1.3) mg/dL POC Glucose 120 H (70-105) mg/dL 01/26/21 Range/Units 12:17 WBC (4.5-11.0) K/mm3 MCV (84-94) fl [place] % (Auto) (0.0-7.3) % [place] # (Auto) (0.0-0.8) K/mm3 Eos # (Auto) (0.0-0.4) K/mm3 Seg Neutrophils # (1.8-7.7) K/mm3 Sodium (137-145) mmol/L Creatinine (0.8-1.3) mg/dL POC Glucose 112 H (70-105) mg/dL
[2021-01-27] MEDS: D5W/0.9% NACL 1,000 ML IV SCH (06:11)
[2021-01-27] MEDS: HEPARIN 5,000 UNIT/1 ML VIAL SUB-Q SCH ×3 (06:11→22:01)
[2021-01-27 07:57] LABS: Hematocrit 40.3 % (35.5-45.6); Hemoglobin 13.6 gm/dl (11.8-15.2); Mean Corpuscular HGB Conc 34 % (32-34); Mean Corpuscular Volume 94 fl (84-94); Platelet Count 251 K/mm3 (140-440); Red Blood Count 4.29 M/mm3 (3.65-5.03); Red Cell Distribution Width 13.2 % (13.2-15.2)
[2021-01-27 08:19] LABS: Blood Urea Nitrogen 7 mg/dL (9-20); Calcium 9.5 mg/dL (8.4-10.2); Hemolysis Index 23
[2021-01-27 08:24] LABS: BUN/Creatinine Ratio 14
--- NOTE | 2021-01-27 14:50 | Fluoroscopy Report ---
MODIFIED BARIUM SWALLOW INDICATION: failed swallow screen TECHNIQUE: Swallowing was evaluated in the lateral position under direct fluoroscopy. FINDINGS: The patient was evaluated with thin liquids, puree and semisolid consistencies. Deglutition appears normal. No penetration or aspiration was witnessed. IMPRESSION: Unremarkable exam. Fluoroscopic time: 1 minutes Number of fluoroscopic images: 1 Signer Name: Refugio Donahue Jr, MD Signed: 01/27/2021 2:46 PM Workstation Name: [id number]
[2021-01-27] MEDS: ASPIRIN 325 MG TAB PO SCH (15:05)
[2021-01-27] MEDS: CLOPIDOGREL 75 MG TAB PO SCH (15:05)
[2021-01-27] MEDS: LANSOPRAZOLE 30 MG SOLUTAB FEEDTUBE SCH (15:06)
[2021-01-27] MEDS: amLODIPine 10 MG TAB PO SCH (15:07)
--- NOTE | 2021-01-27 16:14 | Progress Note ---
Assessment and Plan A/P -- Acute CVA (cerebral vascular accident) Admitted the patient to the medical telemetry. Aspirin 81 mg p.o. daily. Plavix 75 mg p.o. daily. Lipitor 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 is not a candidate for thrombectomy not TPA -CTA neck no significant abnormality -2d echo on july with preserved EF and another study ordered for PFO -MRI of the brain showed left-sided subcortical infarct. consulted PT OT any speech evaluation. We also consulted neurology Patient is nonverbal with dysphagia: failed speech eval, continue tube feeding and IV fluids S/p PEG tube placement by GI -- HTN (hypertension), uncontrolled Amlodipine 10 mg p.o. daily. Labetalol 10 mg IV every 6 hours as needed. we will monitor the blood pressure closely Patient is getting medications with tube feeding. We will add losartan 2 mg daily -- Hyperlipidemia Lipitor 40 mg daily -- Dysarthria/dysphagia Tolerating PEG well awaiting placement. cont TF with PEG tub --Right-sided hemiparesis due to CVA Continue PT OT -- DVT prophylaxis Heparin 5000 units subcu every 8 hours for DVT prophylaxis. Protonix 40 mg p.o. daily for GI prophylaxis. Patient is a full code Subjective Date of service: 01/27/21 Principal diagnosis: right side weakness and worsening speech ouput. Interval history: 55-year-old male with past medical history of hypertension, hyperlipidemia and previous stroke w/o any residual weakness was brought to the hospital because of right-sided weakness and dysarthria. Family stated the patient has been dragging his right lower extremity while walking and Overnight the symptoms apparently worsened and EMS was called. Patient was admitted with stroke protocol. 01/16/21 Patient presented with right sided weakness , slurred speech. CT shows acute stroke. MRI ordered, pending. On Aspirin, Plavix, Lipitor patient was seen and evluated by Neurology PT/OT/Speech consulted 01/17/21 Patient presented with right sided weakness , slurred speech. CT shows acute ischemic stroke. MRI ordered, pending. Continue Aspirin,Plavix. Lipitor Keep NPO as per Speech therefore will start tube feeding with Dobhoff PT/OT to see Patient was evaluated by Dr. Jones, Neurology Will likely need acute rehab placement. 01/18/21; patient remains confused with right-sided weakness, unable to participate in swallow eval. continue history, continue TF 01/19: Patient continues to have right-sided hemiparesis, failed swallow eval, intermittently agitated with persistent confusion. Continue restraints. Co ntinue tube feeding diet, adjust BP meds as needed, follow BMP. 01/20/21: Patient tolerating tube feeding with Dobbhoff. Remains restrained. Unable to move right upper and lower extremities, along with dysphagia and confusion. Waiting on repeat speech eval and PT eval. 01/21/21: Unable to do modified barium swallow study today as patient was not cooperative. Speech recommended to continue tube feeding, patient might need PEG tube placement -we will consult GI. Continue PT OT. 01/22/21: Continue supportive care, wait for repeat speech eval. Continue PT OT. Pending GI recommendation for PEG placement. 01/23/21: Clinically stable, remain restraint and confused nonverbal. Unable to participate in the swallow eval, need PEG tube. Pending GI recommendation. Continue tube feeding for now with Dobbhoff, PT OT eval 01/24/21: Continue tube feeding with Dobbhoff, continue PT OT as scheduled. Monitor vitals and BMP. Plan for PEG tube placement tomorrow. Discussed with mother at the bedside and updated her with all clinical details. 01/25/21: s/p Peg placement today. Patient tolerated procedure well, continue IV fluid, wait for tube feeding order once cleared by GI: Consulted dietary. 01/26/21: initiated TF with PEG today, follow CBC/BMP. CM working on placement. cont supportive care 01/27/2021. Patient tolerating tube feed well with PEG. Follow-up CMP BMP unremarkable. Awaiting placement. Objective - Constitutional Vitals: Vital Signs - 12hr 01/27/21 01/27/21 08:13 15:07 Temperature 97.7 F Pulse Rate 95 H 93 H Respiratory 20 Rate Blood Pressure 156/87 O2 Sat by Pulse 95 Oximetry General appearance: Present: no acute distress, other (Nonverbal) - EENT Eyes: PERRL ENT: other (Scleral icterus) - Neck Neck: supple, normal ROM - Respiratory Respiratory effort: normal Respiratory: bilateral: rhonchi - Cardiovascular Rhythm: regular Extremities: no ischemia, pulses intact Extremity abnormal: edema, other (Left hand restrained) - Gastrointestinal General gastrointestinal: Present: soft, non-tender, non-distended, normal bowel sounds, other (PEG tube functioning insertion site unremarkable) - Integumentary Integumentary: clear, warm, dry - Musculoskeletal Musculoskeletal: generalized weakness, other (Overall extremities right hand restrained.) - Neurologic Neurologic: other (Focal deficits mumbles attempt to make needs known but cannot) - Labs CBC & Chem 7: 01/27/21 07:34 01/27/21 07:34 Labs: Abnormal lab results 01/26/21 01/26/21 01/27/21 Range/Units 17:50 23:19 06:47 Sodium (137-145) mmol/L BUN (9-20) mg/dL Creatinine (0.8-1.3) mg/dL Glucose (75-100) mg/dL POC Glucose 114 H 117 H 135 H (70-105) mg/dL 01/27/21 Range/Units 07:34 Sodium 136 L (137-145) mmol/L BUN 7 L (9-20) mg/dL Creatinine 0.5 L (0.8-1.3) mg/dL Glucose 132 H (75-100) mg/dL POC Glucose (70-105) mg/dL
[2021-01-28] MEDS: HEPARIN 5,000 UNIT/1 ML VIAL SUB-Q SCH ×3 (06:45→21:42)
[2021-01-28] MEDS: amLODIPine 10 MG TAB PO SCH (09:40)
[2021-01-28] MEDS: LOSARTAN 50 MG TAB PO SCH (09:40)
[2021-01-28] MEDS: LANSOPRAZOLE 30 MG SOLUTAB FEEDTUBE SCH (09:40)
[2021-01-28] MEDS: ASPIRIN 325 MG TAB PO SCH (09:40)
[2021-01-28] MEDS: CLOPIDOGREL 75 MG TAB PO SCH (09:41)
--- NOTE | 2021-01-28 14:33 | Progress Note ---
Assessment and Plan A/P -- Acute CVA (cerebral vascular accident) Admitted the patient to the medical telemetry. Aspirin 81 mg p.o. daily. Plavix 75 mg p.o. daily. Lipitor 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 is not a candidate for thrombectomy not TPA -CTA neck no significant abnormality -2d echo on july with preserved EF and another study ordered for PFO -MRI of the brain showed left-sided subcortical infarct. consulted PT OT any speech evaluation. We also consulted neurology Patient is nonverbal with dysphagia: failed speech eval, continue tube feeding and IV fluids S/p PEG tube placement by GI Awaiting placement. -- HTN (hypertension), uncontrolled Amlodipine 10 mg p.o. daily. Labetalol 10 mg IV every 6 hours as needed. we will monitor the blood pressure closely Patient is getting medications with tube feeding. We will add losartan 25 mg daily -- Hyperlipidemia Lipitor 40 mg daily Goal LDL less than 70. -- Dysarthria/dysphagia Tolerating PEG well awaiting placement. cont TF with PEG tube --Right-sided hemiparesis due to CVA Continue PT OT -- DVT prophylaxis Heparin 5000 units subcu every 8 hours for DVT prophylaxis. Protonix 40 mg p.o. daily for GI prophylaxis. Patient is a full code Subjective Date of service: 01/28/21 Principal diagnosis: right side weakness and worsening speech ouput. Interval history: 55-year-old male with past medical history of hypertension, hyperlipidemia and previous stroke w/o any residual weakness was brought to the hospital because of right-sided weakness and dysarthria. Family stated the patient has been dragging his right lower extremity while walking and Overnight the symptoms apparently worsened and EMS was called. Patient was admitted with stroke protocol. 01/16/21 Patient presented with right sided weakness , slurred speech. CT shows acute stroke. MRI ordered, pending. On Aspirin, Plavix, Lipitor patient was seen and evluated by Neurology PT/OT/Speech consulted 01/17/21 Patient presented with right sided weakness , slurred speech. CT shows acute ischemic stroke. MRI ordered, pending. Continue Aspirin,Plavix. Lipitor Keep NPO as per Speech therefore will start tube feeding with Dobhoff PT/OT to see Patient was evaluated by Dr. Jones, Neurology Will likely need acute rehab placement. 01/18/21; patient remains confused with right-sided weakness, unable to participate in swallow eval. continue history, continue TF 01/19: Patient continues to have right-sided hemiparesis, failed swallow eval, intermittently agitated with persistent confusion. Continue restraints. Continue tube feeding diet, adjust BP meds as needed, follow BMP. 01/20/21: Patient tolerating tube feeding with Dobbhoff. Remains restrained. Unable to move right upper and lower extremities, along with dysphagia and confusion. Waiting on repeat speech eval and PT eval. 01/21/21: Unable to do modified barium swallow study today as patient was not cooperative. Speech recommended to continue tube feeding, patient might need PEG tube placement -we will consult GI. Continue PT OT. 01/22/21: Continue supportive care, wait for repeat speech eval. Continue PT OT. Pending GI recommendation for PEG placement. 01/23/21: Clinically stable, remain restraint and confused nonverbal. Unable to participate in the swallow eval, need PEG tube. Pending GI recommendation. Continue tube feeding for now with Dobbhoff, PT OT eval 01/24/21: Continue tube feeding with Dobbhoff, continue PT OT as scheduled. Monitor vitals and BMP. Plan for PEG tube placement tomorrow. Discussed with mother at the bedside and updated her with all clinical details. 01/25/21: s/p Peg placement today. Patient tolerated procedure well, continue IV fluid, wait for tube feeding order once cleared by GI: Consulted dietary. 01/26/21: initiated TF with PEG today, follow CBC/BMP. CM working on placement. cont supportive care 01/27/2021. Patient tolerating tube feed well with PEG. Follow-up CMP BMP unremarkable. Awaiting placement. 01/28/2021. Patient mumbling. Eyes follow you attempt to make needs known. Follow-up labs unremarkable. Still awaiting placement. Objective - Constitutional Vitals: Vital Signs - 12hr 01/28/21 01/28/21 01/28/21 04:21 07:50 08:26 Temperature 98.5 F Pulse Rate 94 H 92 H Pulse Rate [ Apical] Pulse Rate [ From Monitor] Pulse Rate [ Left Radial] Respiratory 16 Rate Blood Pressure 144/88 O2 Sat by Pulse 96 92 Oximetry 01/28/21 01/28/21 09:40 10:00 Temperature Pulse Rate 90 Pulse Rate [ 90 Apical] Pulse Rate [ 92 H From Monitor] Pulse Rate [ 90 Left Radial] Respiratory 20 Rate Blood Pressure 136/84 O2 Sat by Pulse 96 Oximetry General appearance: Present: no acute distress, well-nourished - Respiratory Respiratory effort: normal Respiratory: bilateral: CTA - Cardiovascular Rhythm: regular Heart Sounds: Present: S1 & S2. Absent: gallop, rub Extremity abnormal: edema, other (Moves left extremity right extremity weakness.) - Gastrointestinal General gastrointestinal: Present: soft, non-tender, non-distended, normal bowel sounds - Musculoskeletal Musculoskeletal: generalized weakness - Neurologic Neurologic: focal deficits - Labs CBC & Chem 7: 01/27/21 07:34 01/27/21 07:34 Labs: Abnormal lab results 01/27/21 01/28/21 Range/Units 16:24 07:21 POC Glucose 132 H 127 H (70-105) mg/dL
[2021-01-28] MEDS: D5W/0.9% NACL 1,000 ML IV SCH (17:32)
[2021-01-29] MEDS: HEPARIN 5,000 UNIT/1 ML VIAL SUB-Q SCH ×3 (05:35→21:32)
[2021-01-29] MEDS: D5W/0.9% NACL 1,000 ML IV SCH ×2 (05:40→18:26)
[2021-01-29] MEDS: ASPIRIN 325 MG TAB PO SCH (10:41)
[2021-01-29] MEDS: CLOPIDOGREL 75 MG TAB PO SCH (10:41)
[2021-01-29] MEDS: LOSARTAN 50 MG TAB PO SCH (10:41)
[2021-01-29] MEDS: LANSOPRAZOLE 30 MG SOLUTAB FEEDTUBE SCH (10:41)
[2021-01-29] MEDS: amLODIPine 10 MG TAB PO SCH (10:41)
--- NOTE | 2021-01-29 12:20 | Progress Note ---
Assessment and Plan A/P -- Acute CVA (cerebral vascular accident) Admitted the patient to the medical telemetry. Aspirin 81 mg p.o. daily. Plavix 75 mg p.o. daily. Lipitor 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 is not a candidate for thrombectomy not TPA -CTA neck no significant abnormality -2d echo on july with preserved EF and another study ordered for PFO -MRI of the brain showed left-sided subcortical infarct. consulted PT OT any speech evaluation. We also consulted neurology Patient is nonverbal with dysphagia: failed speech eval, continue tube feeding and IV fluids S/p PEG tube placement by GI Awaiting placement. -- HTN (hypertension), uncontrolled Amlodipine 10 mg p.o. daily. Labetalol 10 mg IV every 6 hours as needed. we will monitor the blood pressure closely Patient is getting medications with tube feeding. We will increase losartan to 50 mg daily -- Hyperlipidemia Lipitor 40 mg daily Goal LDL less than 70. -- Dysarthria/dysphagia Tolerating PEG well awaiting placement. cont TF with PEG tube --Right-sided hemiparesis due to CVA Continue PT OT -- DVT prophylaxis Heparin 5000 units subcu every 8 hours for DVT prophylaxis. Protonix 40 mg p.o. daily for GI prophylaxis. Patient is a full code Subjective Date of service: 01/29/21 Principal diagnosis: right side weakness and worsening speech ouput. Interval history: 55-year-old male with past medical history of hypertension, hyperlipidemia and previous stroke w/o any residual weakness was brought to the hospital because of right-sided weakness and dysarthria. Family stated the patient has been dragging his right lower extremity while walking and Overnight the symptoms apparently worsened and EMS was called. Patient was admitted with stroke protocol. 01/16/21 Patient presented with right sided weakness , slurred speech. CT shows acute stroke. MRI ordered, pending. On Aspirin, Plavix, Lipitor patient was seen and evluated by Neurology PT/OT/Speech consulted 01/17/21 Patient presented with right sided weakness , slurred speech. CT shows acute ischemic stroke. MRI ordered, pending. Continue Aspirin,Plavix. Lipitor Keep NPO as per Speech therefore will start tube feeding with Dobhoff PT/OT to see Patient was evaluated by Dr. Jones, Neurology Will likely need acute rehab placement. 01/18/21; patient remains confused with right-sided weakness, unable to participate in swallow eval. continue history, continue TF 01/19: Patient continues to have right-sided hemiparesis, failed swallow eval, intermittently agitated with persistent confusion. Continue restraints. Continue tube feeding diet, adjust BP meds as needed, follow BMP. 01/20/21: Patient tolerating tube feeding with Dobbhoff. Remains restrained. Unable to move right upper and lower extremities, along with dysphagia and confusion. Waiting on repeat speech eval and PT eval. 01/21/21: Unable to do modified barium swallow study today as patient was not cooperative. Speech recommended to continue tube feeding, patient might need PEG tube placement -we will consult GI. Continue PT OT. 01/22/21: Continue supportive care, wait for repeat speech eval. Continue PT OT. Pending GI recommendation for PEG placement. 01/23/21: Clinically stable, remain restraint and confused nonverbal. Unable to participate in the swallow eval, need PEG tube. Pending GI recommendation. Continue tube feeding for now with Dobbhoff, PT OT eval 01/24/21: Continue tube feeding with Dobbhoff, continue PT OT as scheduled. Monitor vitals and BMP. Plan for PEG tube placement tomorrow. Discussed with mother at the bedside and updated her with all clinical details. 01/25/21: s/p Peg placement today. Patient tolerated procedure well, continue IV fluid, wait for tube feeding order once cleared by GI: Consulted dietary. 01/26/21: initiated TF with PEG today, follow CBC/BMP. CM working on placement. cont supportive care 01/27/2021. Patient tolerating tube feed well with PEG. Follow-up CMP BMP unremarkable. Awaiting placement. 01/28/2021. Patient mumbling. Eyes follow you attempt to make needs known. Follow-up labs unremarkable. Still awaiting placement. 01/28/2021 remains encephalopathic no new concerns overnight. Hospital course unremarkable awaiting placement custodial facility Objective - Constitutional Vitals: Vital Signs - 12hr 01/29/21 01/29/21 01/29/21 00:32 05:08 08:30 Temperature 97.6 F 97.9 F 97.8 F Pulse Rate 98 H 87 95 H Respiratory 20 20 22 Rate Blood Pressure 141/79 141/75 122/81 O2 Sat by Pulse 98 92 95 Oximetry 01/29/21 09:10 Temperature Pulse Rate Respiratory Rate Blood Pressure O2 Sat by Pulse 96 Oximetry General appearance: Present: no acute distress, well-nourished - EENT Eyes: PERRL, EOM intact ENT: hearing intact, clear oral mucosa Ears: bilateral: normal - Neck Neck: supple, normal ROM - Respiratory Respiratory effort: normal Respiratory: bilateral: CTA - Breasts Breasts: normal - Cardiovascular Rhythm: regular Heart Sounds: Present: S1 & S2. Absent: gallop, rub Extremities: pulses intact, No edema, normal color, Full ROM - Gastrointestinal General gastrointestinal: Present: soft, non-tender, non-distended, normal bowel sounds - Genitourinary Male genitourinary: normal - Integumentary Integumentary: clear, warm, dry - Musculoskeletal Musculoskeletal: left sided weakness - Neurologic Neurologic: moves all extremities - Psychiatric Psychiatric: other (Flat encephalopathic) - Labs CBC & Chem 7: 01/27/21 07:34 01/27/21 07:34 Labs: Abnormal lab results 01/28/21 Range/Units 21:58 POC Glucose 109 H (70-105) mg/dL
[2021-01-30] MEDS: HEPARIN 5,000 UNIT/1 ML VIAL SUB-Q SCH ×3 (05:08→22:59)
[2021-01-30] MEDS: LOSARTAN 50 MG TAB PO SCH (09:19)
[2021-01-30] MEDS: CLOPIDOGREL 75 MG TAB PO SCH (09:19)
[2021-01-30] MEDS: ASPIRIN 325 MG TAB PO SCH (09:19)
[2021-01-30] MEDS: LANSOPRAZOLE 30 MG SOLUTAB FEEDTUBE SCH (09:20)
[2021-01-30] MEDS: amLODIPine 10 MG TAB PO SCH (09:20)
--- NOTE | 2021-01-30 12:29 | Progress Note ---
Assessment and Plan Assessment and plan: -- Acute CVA (cerebral vascular accident) Admitted the patient to the medical telemetry. Aspirin 81 mg p.o. daily. Plavix 75 mg p.o. daily. Lipitor 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 is not a candidate for thrombectomy not TPA -CTA neck no significant abnormality -2d echo on july with preserved EF and another study ordered for PFO -MRI of the brain showed left-sided subcortical infarct. consulted PT OT any speech evaluation. We also consulted neurology Patient is nonverbal with dysphagia: failed speech eval, continue tube feeding and IV fluids S/p PEG tube placement by GI Awaiting placement. -- HTN (hypertension), uncontrolled Amlodipine 10 mg p.o. daily. Labetalol 10 mg IV every 6 hours as needed. we will monitor the blood pressure closely Patient is getting medications with tube feeding. We will increase losartan to 50 mg daily -- Hyperlipidemia Lipitor 40 mg daily Goal LDL less than 70. -- Dysarthria/dysphagia Tolerating PEG well awaiting placement. cont TF with PEG tube --Right-sided hemiparesis due to CVA Continue PT OT -- DVT prophylaxis Heparin 5000 units subcu every 8 hours for DVT prophylaxis. Protonix 40 mg p.o. daily for GI prophylaxis. Patient is a full code Subjective Date of service: 01/29/21 Principal diagnosis: right side weakness and worsening speech ouput. Interval history: 55-year-old male with past medical history of hypertension, hyperlipidemia and previous stroke w/o any residual weakness was brought to the hospital because of right-sided weakness and dysarthria. Family stated the patient has been dragging his right lower extremity while walking and Overnight the symptoms apparently worsened and EMS was called. Patient was admitted with stroke protocol. 01/16/21 Patient presented with right sided weakness , slurred speech. CT shows acute stroke. MRI ordered, pending. On Aspirin, Plavix, Lipitor patient was seen and evluated by Neurology PT/OT/Speech consulted 01/17/21 Patient presented with right sided weakness , slurred speech. CT shows acute ischemic stroke. MRI ordered, pending. Continue Aspirin,Plavix. Lipitor Keep NPO as per Speech therefore will start tube feeding with Dobhoff PT/OT to see Patient was evaluated by Dr. Jones, Neurology Will likely need acute rehab placement. 01/18/21; patient remains confused with right-sided weakness, unable to participate in swallow eval. continue history, continue TF 01/19: Patient continues to have right-sided hemiparesis, failed swallow eval, intermittently agitated with persistent confusion. Continue restraints. Continue tube feeding diet, adjust BP meds as needed, follow BMP. 01/20/21: Patient tolerating tube feeding with Dobbhoff. Remains restrained. Unable to move right upper and lower extremities, along with dysphagia and confusion. Waiting on repeat speech eval and PT eval. 01/21/21: Unable to do modified barium swallow study today as patient was not cooperative. Speech recommended to continue tube feeding, patient might need PEG tube placement -we will consult GI. Continue PT OT. 01/22/21: Continue supportive care, wait for repeat speech eval. Continue PT OT. Pending GI recommendation for PEG placement. 01/23/21: Clinically stable, remain restraint and confused nonverbal. Unable to participate in the swallow eval, need PEG tube. Pending GI recommendation. Continue tube feeding for now with Dobbhoff, PT OT eval 01/24/21: Continue tube feeding with Dobbhoff, continue PT OT as scheduled. Monitor vitals and BMP. Plan for PEG tube placement tomorrow. Discussed with mother at the bedside and updated her with all clinical details. 01/25/21: s/p Peg placement today. Patient tolerated procedure well, continue IV fluid, wait for tube feeding order once cleared by GI: Consulted dietary. 01/26/21: initiated TF with PEG today, follow CBC/BMP. CM working on placement. cont supportive care 01/27/2021. Patient tolerating tube feed well with PEG. Follow-up CMP BMP unremarkable. Awaiting placement. 01/28/2021. Patient mumbling. Eyes follow you attempt to make needs known. Follow-up labs unremarkable. Still awaiting placement. 01/28/2021 remains encephalopathic no new concerns overnight. Hospital course unremarkable awaiting placement care home facility 01/30: Patient is on tube feeds and tolerating we will discontinue IV fluids at this time. Patient is awaiting placement to care home facility. No new complaint per nursing staff History Interval history: Patient seen and examined this morning verbal. Per nurse the patient is tolerating tube feeds Hospitalist Physical - Physical exam Narrative exam: General appearance: Present: no acute distress, well-nourished - EENT Eyes: PERRL, EOM intact ENT: hearing intact, clear oral mucosa Ears: bilateral: normal - Neck Neck: supple, normal ROM - Respiratory Respiratory effort: normal Respiratory: bilateral: CTA - Breasts Breasts: normal - Cardiovascular Rhythm: regular Heart Sounds: Present: S1 & S2. Absent: gallop, rub Extremities: pulses intact, No edema, normal color, Full ROM - Gastrointestinal General gastrointestinal: Present: soft, non-tender, non-distended, normal bowel sounds - Genitourinary Male genitourinary: normal - Integumentary Integumentary: clear, warm, dry - Musculoskeletal Musculoskeletal: left sided weakness - Neurologic Neurologic: moves all extremities - Psychiatric Psychiatric: other (Flat encephalopathic) - Constitutional Vitals: Temp Pulse Resp BP Pulse Ox 98.9 F 90 20 127/85 98 01/30/21 07:47 01/30/21 07:47 01/30/21 07:47 01/30/21 07:47 01/30/21 10:00 General appearance: Present: no acute distress, well-nourished Results - Labs CBC & Chem 7: 01/27/21 07:34 01/27/21 07:34 Labs: Laboratory Last Values WBC 10.5 K/mm3 (4.5-11.0) 01/27/21 07:34 RBC 4.29 M/mm3 (3.65-5.03) 01/27/21 07:34 Hgb 13.6 gm/dl (11.8-15.2) 01/27/21 07:34 Hct 40.3 % (35.5-45.6) 01/27/21 07:34 MCV 94 fl (84-94) 01/27/21 07:34 MCH 32 pg (28-32) 01/27/21 07:34 MCHC 34 % (32-34) 01/27/21 07:34 RDW 13.2 % (13.2-15.2) 01/27/21 07:34 Plt Count 251 K/mm3 (140-440) 01/27/21 07:34 Lymph % (Auto) 15.4 % (13.4-35.0) 01/26/21 05:13 [place] % (Auto) 13.9 % (0.0-7.3) H 01/26/21 05:13 Eos % (Auto) 4.0 % (0.0-4.3) 01/26/21 05:13 Baso % (Auto) 0.5 % (0.0-1.8) 01/26/21 05:13 Lymph # (Auto) 1.8 K/mm3 (1.2-5.4) 01/26/21 05:13 [place] # (Auto) 1.7 K/mm3 (0.0-0.8) H 01/26/21 05:13 Eos # (Auto) 0.5 K/mm3 (0.0-0.4) H 01/26/21 05:13 Baso # (Auto) 0.1 K/mm3 (0.0-0.1) 01/26/21 05:13 Seg Neutrophils % 66.2 % (40.0-70.0) 01/26/21 05:13 Seg Neutrophils # 7.9 K/mm3 (1.8-7.7) H 01/26/21 05:13 PT 14.3 Sec. (12.2-14.9) 01/25/21 06:02 INR 1.05 (0.87-1.13) 01/25/21 06:02 APTT 34.2 Sec. (24.2-36.6) 01/25/21 06:02 Thrombin Time 18.0 Sec. (15.1-19.6) 01/14/21 14:40 Sodium 136 mmol/L (137-145) L 01/27/21 07:34 Potassium 3.6 mmol/L (3.6-5.0) 01/27/21 07:34 Chloride 98.0 mmol/L (98-107) 01/27/21 07:34 Carbon Dioxide 27 mmol/L (22-30) 01/27/21 07:34 Anion Gap 15 mmol/L 01/27/21 07:34 BUN 7 mg/dL (9-20) L 01/27/21 07:34 Creatinine 0.5 mg/dL (0.8-1.3) L 01/27/21 07:34 Estimated GFR > 60 ml/min 01/27/21 07:34 BUN/Creatinine Ratio 14 % 01/27/21 07:34 Glucose 132 mg/dL (75-100) H 01/27/21 07:34 POC Glucose 109 mg/dL (70-105) H 01/28/21 21:58 Calcium 9.5 mg/dL (8.4-10.2) 01/27/21 07:34 Coronavirus (PCR) Negative (Negative) 01/29/21 Unknown Suarez/IV: Voiding Method Condom Catheter Active Medications - Current Medications Current Medications: Generic Name Dose Route Start Last Admin Trade Name Freq PRN Reason Stop Dose Admin Acetaminophen 650 mg 01/15/21 00:32 Acetaminophen 325 Mg Tab PO Q4H PRN Pain MILD(1-3)/Fever >100.5/LARIOS Albuterol 2.5 mg 01/15/21 00:32 Albuterol 2.5 Mg/3 Ml Nebu IH Q4HRT PRN Shortness Of Breath Amlodipine Besylate 10 mg 01/15/21 10:00 01/30/21 09:20 Amlodipine 10 Mg Tab PO 10 mg QDAY VANI Administration Lipase/Protease/Amylase 1 each 01/17/21 12:30 Lipase 10,500/Protease 25,000/Amylase 43,750 (Units) Dr Purcell FEEDTUBE PRN PRN For Clogged Feeding Tube Aspirin 325 mg 01/26/21 12:00 01/30/21 09:19 Aspirin 325 Mg Tab PO 325 mg QDAY VANI Administration Atorvastatin Calcium 40 mg 01/15/21 22:00 01/29/21 21:36 Atorvastatin 40 Mg Tab PO 40 mg QHS VANI Administration Clopidogrel Bisulfate 75 mg 01/26/21 14:00 01/30/21 09:19 Clopidogrel 75 Mg Tab PO 75 mg QDAY VANI Administration Heparin Sodium (Porcine) 5,000 unit 01/15/21 06:00 01/30/21 05:08 Heparin 5,000 Unit/1 Ml Vial SUB-Q 5,000 unit Q8HR VANI Administration Hydromorphone HCl 0.5 mg 01/15/21 00:32 01/19/21 03:11 Hydromorphone 1 Mg/1 Ml Inj IV 0.5 mg Q3H PRN Administration Pain , Severe (7-10) Lansoprazole 30 mg 01/26/21 12:00 01/30/21 09:20 Lansoprazole 30 Mg Solutab FEEDTUBE 30 mg QDAY VANI Administration Losartan Potassium 50 mg 01/28/21 10:00 01/30/21 09:19 Losartan 50 Mg Tab PO 50 mg QDAY VANI Administration Ondansetron HCl 4 mg 01/15/21 00:32 01/15/21 12:04 Ondansetron 4 Mg/2 Ml Inj IV 4 mg Q8H PRN Administration Nausea And Vomiting Simple Syrup 15 ml 01/17/21 12:30 Simple Syrup 15 Ml FEEDTUBE PRN PRN Hypoglycemia Simple Syrup 30 ml 01/17/21 12:30 Simple Syrup 15 Ml FEEDTUBE PRN PRN Hypoglycemia Sodium Bicarbonate 325 mg 01/17/21 12:30 Sodium Bicarbonate 325 Mg Tab FEEDTUBE PRN PRN For Clogged Feeding Tube Sodium Chloride 10 ml 01/15/21 10:00 01/30/21 09:20 Sodium Chloride 0.9% 10 Ml Flush Syringe IV 10 ml BID VANI Administration Sodium Chloride 10 ml 01/15/21 00:32 Sodium Chloride 0.9% 10 Ml Flush Syringe IV PRN PRN LINE FLUSH Nutrition/Malnutrition Assess - Dietary Evaluation Nutrition/Malnutrition Findings: Nutrition Notes Start: 01/17/21 12:10 Freq: Status: Active Protocol: Document 01/28/21 14:05 HIMANSHU (Rec: 01/28/21 14:06 [email or web address] [id number]) Nutrition Notes Initial or Follow up Brief Note Current Diagnosis Hypertension,Stroke, Hyperlipidemia Other Pertinent Diagnosis Dysarthria, (R) sided weakness Current Diet [facility] soft Subjective/Other Information LICENSED PRACTICAL VOCATIONAL NURSE cleared pt for regular diet for lunch. Nutrition Intervention Goal #1 Meet at least 75% energy and pro needs Anticipated Discharge Needs: regular Follow-Up By: 01/31/21 Additional Comments F/u: intakes and need for ONS
[2021-01-31] MEDS: HEPARIN 5,000 UNIT/1 ML VIAL SUB-Q SCH ×2 (06:21→22:50)
--- NOTE | 2021-01-31 08:18 | Discharge Summary ---
Providers - Providers Date of Admission: 01/15/21 00:32 Attending physician: DAISY PACHECO MD 01/15/21 Consult to Physician [CONS] Routine Comment: Consulting Provider: TAMI AMAYA Physician Instructions: Reason For Exam: cva 01/15/21 00:32 Occupational Therapy Evaluate and Treat [CONS] Routine Comment: Reason For Exam: Neuro deficits Physical Therapy Evaluation and Treat [CONS] Routine Comment: Reason For Exam: Neuro deficits 01/16/21 14:39 Speech Therapy Evaluation and Treat [CONS] Urgent Reason For Exam: please eval swallowing thanks 01/17/21 08:20 Consult to Dietitian/Nutrition [CONS] Routine Physician Instructions: Reason For Exam: Reason for Consult: Write/Manage Tube Feeding 01/17/21 13:03 Physical Therapy Evaluation and Treat [CONS] Routine Comment: s/p CVA Reason For Exam: PT eval and treat for abnormal gait 01/17/21 13:04 Occupational Therapy Evaluate and Treat [CONS] Routine Comment: s/p CVA Reason For Exam: OT to eval and treat 01/20/21 09:43 Speech Therapy Evaluation and Treat [CONS] Routine Reason For Exam: aspiration 01/21/21 14:11 Consult to Physician [CONS] Routine Comment: Consulting Provider: LINCOLN MIRAMONTES Physician Instructions: Reason For Exam: PEG placement 01/25/21 13:55 Consult to Dietitian/Nutrition [CONS] Routine Physician Instructions: Reason For Exam: Reason for Consult: post-peg Primary care physician: [facility] Hospitalization Reason for admission: cva Condition: Stable Hospital course: 55-year-old male with past medical history of hypertension, hyperlipidemia and previous stroke w/o any residual weakness was brought to the hospital because of right-sided weakness and dysarthria. Family stated the patient has been dragging his right lower extremity while walking and Overnight the symptoms apparently worsened and EMS was called. Patient was admitted with stroke protocol. -- Acute CVA (cerebral vascular accident) Admitted the patient to the medical telemetry. Aspirin 81 mg p.o. daily. Plavix 75 mg p.o. daily. Lipitor 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 is not a candidate for thrombectomy not TPA -CTA neck no significant abnormality -2d echo on july with preserved EF and another study ordered for PFO -MRI of the brain showed left-sided subcortical infarct. consulted PT OT any speech evaluation. We also consulted neurology Patient is nonverbal with dysphagia: failed speech eval, continue tube feeding and IV fluids S/p PEG tube placement by GI Awaiting placement. -- HTN (hypertension), uncontrolled Amlodipine 10 mg p.o. daily. Labetalol 10 mg IV every 6 hours as needed. we will monitor the blood pressure closely Patient is getting medications with tube feeding. We will increase losartan to 50 mg daily -- Hyperlipidemia Lipitor 40 mg daily Goal LDL less than 70. -- Dysarthria/dysphagia Tolerating PEG well awaiting placement. cont TF with PEG tube --Right-sided hemiparesis due to CVA Continue PT OT -- DVT prophylaxis Heparin 5000 units subcu every 8 hours for DVT prophylaxis. Protonix 40 mg p.o. daily for GI prophylaxis. Patient is a full code 01/16/21 Patient presented with right sided weakness , slurred speech. CT shows acute stroke. MRI ordered, pending. On Aspirin, Plavix, Lipitor patient was seen and evluated by Neurology PT/OT/Speech consulted 01/17/21 Patient presented with right sided weakness , slurred speech. CT shows acute ischemic stroke. MRI ordered, pending. Continue Aspirin,Plavix. Lipitor Keep NPO as per Speech therefore will start tube feeding with Dobhoff PT/OT to see Patient was evaluated by Dr. Amaya, Neurology Will likely need acute rehab placement. 01/18/21; patient remains confused with right-sided weakness, unable to participate in swallow eval. continue history, continue TF 01/19: Patient continues to have right-sided hemiparesis, failed swallow eval, intermittently agitated with persistent confusion. Continue restraints. Continue tube feeding diet, adjust BP meds as needed, follow BMP. 01/20/21: Patient tolerating tube feeding with Dobbhoff. Remains restrained. Unable to move right upper and lower extremities, along with dysphagia and confusion. Waiting on repeat speech eval and PT eval. 01/21/21: Unable to do modified barium swallow study today as patient was not cooperative. Speech recommended to continue tube feeding, patient might need PEG tube placement -we will consult GI. Continue PT OT. 01/22/21: Continue supportive care, wait for repeat speech eval. Continue PT OT. Pending GI recommendation for PEG placement. 01/23/21: Clinically stable, remain restraint and confused nonverbal. Unable to participate in the swallow eval, need PEG tube. Pending GI recommendation. Continue tube feeding for now with Dobbhoff, PT OT eval 01/24/21: Continue tube feeding with Dobbhoff, continue PT OT as scheduled. Monitor vitals and BMP. Plan for PEG tube placement tomorrow. Discussed with mother at the bedside and updated her with all clinical details. 01/25/21: s/p Peg placement today. Patient tolerated procedure well, continue IV fluid, wait for tube feeding order once cleared by GI: Consulted dietary. 01/26/21: initiated TF with PEG today, follow CBC/BMP. CM working on placement. cont supportive care 01/27/2021. Patient tolerating tube feed well with PEG. Follow-up CMP BMP unremarkable. Awaiting placement. 01/28/2021. Patient mumbling. Eyes follow you attempt to make needs known. Follow-up labs unremarkable. Still awaiting placement. 01/28/2021 remains encephalopathic no new concerns overnight. Hospital course unremarkable awaiting placement [facility] 8: Patient is on tube feeds and tolerating we will discontinue IV fluids at this time. Patient is awaiting placement to [facility] facility. No new complaint per nursing staff 8: covid ordered for placement. Increased statin to 80mg for 30 days and can be changed back to 40 as patint had a stroke while on statin. Also now plavix has been added as patient was on aspirin. Patient was denied inpatient rehab awaiting for SNF. 83: Patient seen and examined clinically stable at this time. Awaiting discharge planning to SNF. 84: Patient seen and examined, no new distress, tolerating diet, awaiting SNF placement. 85: Patient remains stable, following commands, eating with assistance, no new complaints. 86: Patient seen and examined this morning resting comfortably. Still with right-sided palsy otherwise tolerating diet this morning. Still awaiting placement 02/05: Continue supportive care awaiting placement. Aspiration precautions. Plan discussed with the patient and nurse. 02/06: Patient seen and examined no change continue to manage his condition while awaiting placement. Tolerating diet. 02/07: Patient continues to show remarkbale improvement, awaiting placement Disposition: [id number]/[id number] SNF W [facility] C[facility] Final Discharge Diagnosis (Prints w/discharge instructions): CVA Time spent for discharge: 35 mins Core Measure Documentation - Palliative Care Palliative Care/ Comfort Measures: Not Applicable - Core Measures Any of the following diagnoses?: stroke - Stroke Discharge Requirements Statin for LDL = or >70 mg/dl on DC: Not Applicable Anticoag for atrial fib/atrial flutter: Yes Antithrombotic for ischemic stroke: Yes Exam - Physical Exam Narrative exam: General appearance: Present: no acute distress, well-nourished - EENT Eyes: PERRL, EOM intact ENT: hearing intact, clear oral mucosa Ears: bilateral: normal - Neck Neck: supple, normal ROM - Respiratory Respiratory effort: normal Respiratory: bilateral: CTA - Breasts Breasts: normal - Cardiovascular Rhythm: regular Heart Sounds: Present: S1 & S2. Absent: gallop, rub Extremities: pulses intact, No edema, normal color, Full ROM - Gastrointestinal General gastrointestinal: Present: soft, non-tender, non-distended, normal bowel sounds - Genitourinary Male genitourinary: normal - Integumentary Integumentary: clear, warm, dry - Musculoskeletal Musculoskeletal: left and right sided weakness - Neurologic Neurologic: moves left extremities, but still weak on the right sided, expressive aphasia, - Psychiatric Psychiatric: flat - Constitutional Vitals: Temp Pulse Resp BP Pulse Ox 98.1 F 95 H 18 126/83 98 01/31/21 05:09 01/31/21 05:09 01/31/21 05:09 01/31/21 05:09 01/31/21 05:09 Plan Activity: advance as tolerated, fall precautions Diet: low fat Special Instructions: record daily weights, record daily BP diary, physical therapy, occupational therapy Follow up with: PRIMARY CARE, [Primary Care Provider] - 3-5 Days OKDI VALENTINE MD [Staff Physician] - 7 Days Prescriptions: AtorvaSTATin [Lipitor] 80 mg PO QHS #60 tablet Losartan [Cozaar] 50 mg PO QDAY #30 tablet Clopidogrel [Plavix] 75 mg PO QDAY #30 tablet Lansoprazole Solutab [Prevacid Solutab] 30 mg FEEDTUBE QDAY #30 tab.rosa m
[2021-01-31] MEDS: LOSARTAN 50 MG TAB PO SCH (13:10)
[2021-01-31] MEDS: ASPIRIN 325 MG TAB PO SCH (13:12)
[2021-01-31] MEDS: amLODIPine 10 MG TAB PO SCH (13:13)
[2021-01-31] MEDS: LANSOPRAZOLE 30 MG SOLUTAB FEEDTUBE SCH (13:15)
[2021-01-31] MEDS: CLOPIDOGREL 75 MG TAB PO SCH (13:15)
--- NOTE | 2021-01-31 14:15 | Progress Note ---
Assessment and Plan Assessment and plan: -- Acute CVA (cerebral vascular accident) Admitted the patient to the medical telemetry. Aspirin 81 mg p.o. daily. Plavix 75 mg p.o. daily. Lipitor 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 is not a candidate for thrombectomy not TPA -CTA neck no significant abnormality -2d echo on july with preserved EF and another study ordered for PFO -MRI of the brain showed left-sided subcortical infarct. consulted PT OT any speech evaluation. We also consulted neurology Patient is nonverbal with dysphagia: failed speech eval, continue tube feeding and IV fluids S/p PEG tube placement by GI Awaiting placement. -- HTN (hypertension), uncontrolled Amlodipine 10 mg p.o. daily. Labetalol 10 mg IV every 6 hours as needed. we will monitor the blood pressure closely Patient is getting medications with tube feeding. We will increase losartan to 50 mg daily -- Hyperlipidemia Lipitor 40 mg daily Goal LDL less than 70. -- Dysarthria/dysphagia Tolerating PEG well awaiting placement. cont TF with PEG tube --Right-sided hemiparesis due to CVA Continue PT OT -- DVT prophylaxis Heparin 5000 units subcu every 8 hours for DVT prophylaxis. Protonix 40 mg p.o. daily for GI prophylaxis. Patient is a full code Subjective Date of service: 01/29/21 Principal diagnosis: right side weakness and worsening speech ouput. Interval history: 55-year-old male with past medical history of hypertension, hyperlipidemia and previous stroke w/o any residual weakness was brought to the hospital because of right-sided weakness and dysarthria. Family stated the patient has been dragging his right lower extremity while walking and Overnight the symptoms apparently worsened and EMS was called. Patient was admitted with stroke protocol. 01/16/21 Patient presented with right sided weakness , slurred speech. CT shows acute stroke. MRI ordered, pending. On Aspirin, Plavix, Lipitor patient was seen and evluated by Neurology PT/OT/Speech consulted 01/17/21 Patient presented with right sided weakness , slurred speech. CT shows acute ischemic stroke. MRI ordered, pending. Continue Aspirin,Plavix. Lipitor Keep NPO as per Speech therefore will start tube feeding with Dobhoff PT/OT to see Patient was evaluated by Dr. Jones, Neurology Will likely need acute rehab placement. 01/18/21; patient remains confused with right-sided weakness, unable to participate in swallow eval. continue history, continue TF 01/19: Patient continues to have right-sided hemiparesis, failed swallow eval, intermittently agitated with persistent confusion. Continue restraints. Continue tube feeding diet, adjust BP meds as needed, follow BMP. 01/20/21: Patient tolerating tube feeding with Dobbhoff. Remains restrained. Unable to move right upper and lower extremities, along with dysphagia and confusion. Waiting on repeat speech eval and PT eval. 01/21/21: Unable to do modified barium swallow study today as patient was not cooperative. Speech recommended to continue tube feeding, patient might need PEG tube placement -we will consult GI. Continue PT OT. 01/22/21: Continue supportive care, wait for repeat speech eval. Continue PT OT. Pending GI recommendation for PEG placement. 01/23/21: Clinically stable, remain restraint and confused nonverbal. Unable to participate in the swallow eval, need PEG tube. Pending GI recommendation. Continue tube feeding for now with Dobbhoff, PT OT eval 01/24/21: Continue tube feeding with Dobbhoff, continue PT OT as scheduled. Monitor vitals and BMP. Plan for PEG tube placement tomorrow. Discussed with mother at the bedside and updated her with all clinical details. 01/25/21: s/p Peg placement today. Patient tolerated procedure well, continue IV fluid, wait for tube feeding order once cleared by GI: Consulted dietary. 01/26/21: initiated TF with PEG today, follow CBC/BMP. CM working on placement. cont supportive care 01/27/2021. Patient tolerating tube feed well with PEG. Follow-up CMP BMP unremarkable. Awaiting placement. 01/28/2021. Patient mumbling. Eyes follow you attempt to make needs known. Follow-up labs unremarkable. Still awaiting placement. 01/28/2021 remains encephalopathic no new concerns overnight. Hospital course unremarkable awaiting placement [facility] 01/30: Patient is on tube feeds and tolerating we will discontinue IV fluids at this time. Patient is awaiting placement to [facility] facility. No new complaint per nursing staff 8/2: covid ordered for placement. Increased statin to 80mg for 30 days and can be changed back to 40 as patint had a stroke while on statin. Also now plavix has been added as patient was on aspirin. Patient was denied inpatient rehab awaiting for SNF. History Interval history: Patient seen and examined this morning mumbles a few words some audible but otherwise generally aphasic. Hospitalist Physical - Physical exam Narrative exam: General appearance: Present: no acute distress, well-nourished - EENT Eyes: PERRL, EOM intact ENT: hearing intact, clear oral mucosa Ears: bilateral: normal - Neck Neck: supple, normal ROM - Respiratory Respiratory effort: normal Respiratory: bilateral: CTA - Breasts Breasts: normal - Cardiovascular Rhythm: regular Heart Sounds: Present: S1 & S2. Absent: gallop, rub Extremities: pulses intact, No edema, normal color, Full ROM - Gastrointestinal General gastrointestinal: Present: soft, non-tender, non-distended, normal bowel sounds - Genitourinary Male genitourinary: normal - Integumentary Integumentary: clear, warm, dry - Musculoskeletal Musculoskeletal: left sided weakness - Neurologic Neurologic: moves all extremities, expressive aphasia - Psychiatric Psychiatric: other (Flat encephalopathic) - Constitutional Vitals: Temp Pulse Resp BP Pulse Ox 98.1 F 85 18 126/83 98 01/31/21 05:09 01/31/21 13:13 01/31/21 05:09 01/31/21 05:09 01/31/21 05:09 General appearance: Present: no acute distress, well-nourished Results - Labs CBC & Chem 7: 01/27/21 07:34 01/27/21 07:34 Labs: Laboratory Last Values WBC 10.5 K/mm3 (4.5-11.0) 01/27/21 07:34 RBC 4.29 M/mm3 (3.65-5.03) 01/27/21 07:34 Hgb 13.6 gm/dl (11.8-15.2) 01/27/21 07:34 Hct 40.3 % (35.5-45.6) 01/27/21 07:34 MCV 94 fl (84-94) 01/27/21 07:34 MCH 32 pg (28-32) 01/27/21 07:34 MCHC 34 % (32-34) 01/27/21 07:34 RDW 13.2 % (13.2-15.2) 01/27/21 07:34 Plt Count 251 K/mm3 (140-440) 01/27/21 07:34 Lymph % (Auto) 15.4 % (13.4-35.0) 01/26/21 05:13 [place] % (Auto) 13.9 % (0.0-7.3) H 01/26/21 05:13 Eos % (Auto) 4.0 % (0.0-4.3) 01/26/21 05:13 Baso % (Auto) 0.5 % (0.0-1.8) 01/26/21 05:13 Lymph # (Auto) 1.8 K/mm3 (1.2-5.4) 01/26/21 05:13 [place] # (Auto) 1.7 K/mm3 (0.0-0.8) H 01/26/21 05:13 Eos # (Auto) 0.5 K/mm3 (0.0-0.4) H 01/26/21 05:13 Baso # (Auto) 0.1 K/mm3 (0.0-0.1) 01/26/21 05:13 Seg Neutrophils % 66.2 % (40.0-70.0) 01/26/21 05:13 Seg Neutrophils # 7.9 K/mm3 (1.8-7.7) H 01/26/21 05:13 PT 14.3 Sec. (12.2-14.9) 01/25/21 06:02 INR 1.05 (0.87-1.13) 01/25/21 06:02 APTT 34.2 Sec. (24.2-36.6) 01/25/21 06:02 Thrombin Time 18.0 Sec. (15.1-19.6) 01/14/21 14:40 Sodium 136 mmol/L (137-145) L 01/27/21 07:34 Potassium 3.6 mmol/L (3.6-5.0) 01/27/21 07:34 Chloride 98.0 mmol/L (98-107) 01/27/21 07:34 Carbon Dioxide 27 mmol/L (22-30) 01/27/21 07:34 Anion Gap 15 mmol/L 01/27/21 07:34 BUN 7 mg/dL (9-20) L 01/27/21 07:34 Creatinine 0.5 mg/dL (0.8-1.3) L 01/27/21 07:34 Estimated GFR > 60 ml/min 01/27/21 07:34 BUN/Creatinine Ratio 14 % 01/27/21 07:34 Glucose 132 mg/dL (75-100) H 01/27/21 07:34 POC Glucose 118 mg/dL (70-105) H 01/31/21 12:04 Calcium 9.5 mg/dL (8.4-10.2) 01/27/21 07:34 Coronavirus (PCR) Negative (Negative) 01/29/21 Unknown Suarez/IV: Voiding Method Condom Catheter Active Medications - Current Medications Current Medications: Generic Name Dose Route Start Last Admin Trade Name Freq PRN Reason Stop Dose Admin Acetaminophen 650 mg 01/15/21 00:32 Acetaminophen 325 Mg Tab PO Q4H PRN Pain MILD(1-3)/Fever >100.5/LARIOS Albuterol 2.5 mg 01/15/21 00:32 Albuterol 2.5 Mg/3 Ml Nebu IH Q4HRT PRN Shortness Of Breath Amlodipine Besylate 10 mg 01/15/21 10:00 01/31/21 13:13 Amlodipine 10 Mg Tab PO 10 mg QDAY VANI Administration Lipase/Protease/Amylase 1 each 01/17/21 12:30 Lipase 10,500/Protease 25,000/Amylase 43,750 (Units) Dr Purcell FEEDTUBE PRN PRN For Clogged Feeding Tube Aspirin 325 mg 01/26/21 12:00 01/31/21 13:12 Aspirin 325 Mg Tab PO 325 mg QDAY VANI Administration Atorvastatin Calcium 40 mg 01/15/21 22:00 01/30/21 22:59 Atorvastatin 40 Mg Tab PO 40 mg QHS VANI Administration Clopidogrel Bisulfate 75 mg 01/26/21 14:00 01/31/21 13:15 Clopidogrel 75 Mg Tab PO 75 mg QDAY VANI Administration Heparin Sodium (Porcine) 5,000 unit 01/15/21 06:00 01/31/21 06:21 Heparin 5,000 Unit/1 Ml Vial SUB-Q 5,000 unit Q8HR VANI Administration Hydromorphone HCl 0.5 mg 01/15/21 00:32 01/19/21 03:11 Hydromorphone 1 Mg/1 Ml Inj IV 0.5 mg Q3H PRN Administration Pain , Severe (7-10) Lansoprazole 30 mg 01/26/21 12:00 01/31/21 13:15 Lansoprazole 30 Mg Solutab FEEDTUBE 30 mg QDAY VANI Administration Losartan Potassium 50 mg 01/28/21 10:00 01/31/21 13:10 Losartan 50 Mg Tab PO 50 mg QDAY VANI Administration Ondansetron HCl 4 mg 01/15/21 00:32 01/15/21 12:04 Ondansetron 4 Mg/2 Ml Inj IV 4 mg Q8H PRN Administration Nausea And Vomiting Simple Syrup 15 ml 01/17/21 12:30 Simple Syrup 15 Ml FEEDTUBE PRN PRN Hypoglycemia Simple Syrup 30 ml 01/17/21 12:30 Simple Syrup 15 Ml FEEDTUBE PRN PRN Hypoglycemia Sodium Bicarbonate 325 mg 01/17/21 12:30 Sodium Bicarbonate 325 Mg Tab FEEDTUBE PRN PRN For Clogged Feeding Tube Sodium Chloride 10 ml 01/15/21 10:00 01/31/21 13:16 Sodium Chloride 0.9% 10 Ml Flush Syringe IV 10 ml BID VANI Administration Sodium Chloride 10 ml 01/15/21 00:32 Sodium Chloride 0.9% 10 Ml Flush Syringe IV PRN PRN LINE FLUSH Nutrition/Malnutrition Assess - Dietary Evaluation Nutrition/Malnutrition Findings: Nutrition Notes Start: 01/17/21 12:10 Freq: Status: Active Protocol: Document 01/31/21 13:40 (Rec: 01/31/21 13:44 [email or web address]) Nutrition Notes Initial or Follow up Reassessment Current Diagnosis Hypertension,Stroke, Hyperlipidemia Other Pertinent Diagnosis Dysarthria, (R) sided weakness Current Diet [facility] soft Labs/Tests reviewed Pertinent Medications reviewed Height 5 ft 7 in Weight 107 kg [place] Body Weight (kg) 67.27 BMI 36.9 Weight Status Obese Subjective/Other Information RN states pt does very well with eating. He ate 75% of breakfast this AM. Percent of energy/protein needs met: 78%/100% Burn Absent Trauma Absent Current % PO Good (75-100%) Minimum of two criteria No #1 Nutrition Diagnosis Inadequate oral intake As Evidenced by Signs and Symptoms pt meeting 87%/100% of kcal/ protein needs Diagnosis Progress(for reassessment Resolved documentation) Is patient on ventilator? No Is Patient Ambulatory and/or Out of Bed No REE-([facility]-confined to bed) 2252.160 Kcal/Kg value to use for calculation 16 Approximate Energy Requirements Using 1712 kcal/Kg Calculation Used for Recommendations Kcal/kg Additional Notes Pro needs 0.8-1g/kg adjBW: 70- 88g/day Fluid needs 1ml/kcal Nutrition Intervention Nutrition Support: d/c Goal #1 Continue to meet at least 75% energy and pro needs Revisit per MD consult or patient Sign Off request:
[2021-02-01] MEDS: HEPARIN 5,000 UNIT/1 ML VIAL SUB-Q SCH ×4 (06:50→21:57)
--- NOTE | 2021-02-01 09:58 | Progress Note ---
Assessment and Plan Assessment and plan: -- Acute CVA (cerebral vascular accident) Admitted the patient to the medical telemetry. Aspirin 81 mg p.o. daily. Plavix 75 mg p.o. daily. Lipitor 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 is not a candidate for thrombectomy not TPA -CTA neck no significant abnormality -2d echo on july with preserved EF and another study ordered for PFO -MRI of the brain showed left-sided subcortical infarct. consulted PT OT any speech evaluation. We also consulted neurology Patient is nonverbal with dysphagia: failed speech eval, continue tube feeding and IV fluids S/p PEG tube placement by GI Awaiting placement. -- HTN (hypertension), uncontrolled Amlodipine 10 mg p.o. daily. Labetalol 10 mg IV every 6 hours as needed. we will monitor the blood pressure closely Patient is getting medications with tube feeding. We will increase losartan to 50 mg daily -- Hyperlipidemia Lipitor 40 mg daily Goal LDL less than 70. -- Dysarthria/dysphagia Tolerating PEG well awaiting placement. cont TF with PEG tube --Right-sided hemiparesis due to CVA Continue PT OT -- DVT prophylaxis Heparin 5000 units subcu every 8 hours for DVT prophylaxis. Protonix 40 mg p.o. daily for GI prophylaxis. Patient is a full code Subjective Date of service: 01/29/21 Principal diagnosis: right side weakness and worsening speech ouput. Interval history: 55-year-old male with past medical history of hypertension, hyperlipidemia and previous stroke w/o any residual weakness was brought to the hospital because of right-sided weakness and dysarthria. Family stated the patient has been dragging his right lower extremity while walking and Overnight the symptoms apparently worsened and EMS was called. Patient was admitted with stroke protocol. 01/16/21 Patient presented with right sided weakness , slurred speech. CT shows acute stroke. MRI ordered, pending. On Aspirin, Plavix, Lipitor patient was seen and evluated by Neurology PT/OT/Speech consulted 01/17/21 Patient presented with right sided weakness , slurred speech. CT shows acute ischemic stroke. MRI ordered, pending. Continue Aspirin,Plavix. Lipitor Keep NPO as per Speech therefore will start tube feeding with Dobhoff PT/OT to see Patient was evaluated by Dr. Jones, Neurology Will likely need acute rehab placement. 01/18/21; patient remains confused with right-sided weakness, unable to participate in swallow eval. continue history, continue TF 01/19: Patient continues to have right-sided hemiparesis, failed swallow eval, intermittently agitated with persistent confusion. Continue restraints. Continue tube feeding diet, adjust BP meds as needed, follow BMP. 01/20/21: Patient tolerating tube feeding with Dobbhoff. Remains restrained. Unable to move right upper and lower extremities, along with dysphagia and confusion. Waiting on repeat speech eval and PT eval. 01/21/21: Unable to do modified barium swallow study today as patient was not cooperative. Speech recommended to continue tube feeding, patient might need PEG tube placement -we will consult GI. Continue PT OT. 01/22/21: Continue supportive care, wait for repeat speech eval. Continue PT OT. Pending GI recommendation for PEG placement. 01/23/21: Clinically stable, remain restraint and confused nonverbal. Unable to participate in the swallow eval, need PEG tube. Pending GI recommendation. Continue tube feeding for now with Dobbhoff, PT OT eval 01/24/21: Continue tube feeding with Dobbhoff, continue PT OT as scheduled. Monitor vitals and BMP. Plan for PEG tube placement tomorrow. Discussed with mother at the bedside and updated her with all clinical details. 01/25/21: s/p Peg placement today. Patient tolerated procedure well, continue IV fluid, wait for tube feeding order once cleared by GI: Consulted dietary. 01/26/21: initiated TF with PEG today, follow CBC/BMP. CM working on placement. cont supportive care 01/27/2021. Patient tolerating tube feed well with PEG. Follow-up CMP BMP unremarkable. Awaiting placement. 01/28/2021. Patient mumbling. Eyes follow you attempt to make needs known. Follow-up labs unremarkable. Still awaiting placement. 01/28/2021 remains encephalopathic no new concerns overnight. Hospital course unremarkable awaiting placement [facility] 01/30: Patient is on tube feeds and tolerating we will discontinue IV fluids at this time. Patient is awaiting placement to [facility] facility. No new complaint per nursing staff 01/31: covid ordered for placement. Increased statin to 80mg for 30 days and can be changed back to 40 as patint had a stroke while on statin. Also now plavix has been added as patient was on aspirin. Patient was denied inpatient rehab awaiting for SNF. 02/01: Patient seen and examined clinically stable at this time. Awaiting discharge planning to SNF. History Interval history: Patient seen and examined this morning mumbles a few words some audible but otherwise generally aphasic. Per nurse, tolerates diet with assistance Hospitalist Physical - Physical exam Narrative exam: General appearance: Present: no acute distress, well-nourished - EENT Eyes: PERRL, EOM intact ENT: hearing intact, clear oral mucosa Ears: bilateral: normal - Neck Neck: supple, normal ROM - Respiratory Respiratory effort: normal Respiratory: bilateral: CTA - Breasts Breasts: normal - Cardiovascular Rhythm: regular Heart Sounds: Present: S1 & S2. Absent: gallop, rub Extremities: pulses intact, No edema, normal color, Full ROM - Gastrointestinal General gastrointestinal: Present: soft, non-tender, non-distended, normal bowel sounds - Genitourinary Male genitourinary: normal - Integumentary Integumentary: clear, warm, dry - Musculoskeletal Musculoskeletal: left sided weakness - Neurologic Neurologic: moves all extremities, expressive aphasia - Psychiatric Psychiatric: other (Flat encephalopathic) - Constitutional Vitals: Temp Pulse Resp BP Pulse Ox 98.2 F 97 H 18 118/79 97 02/01/21 08:46 02/01/21 08:46 02/01/21 08:46 02/01/21 08:46 02/01/21 08:46 General appearance: Present: no acute distress, well-nourished Results - Labs CBC & Chem 7: 01/27/21 07:34 01/27/21 07:34 Labs: Laboratory Last Values WBC 10.5 K/mm3 (4.5-11.0) 01/27/21 07:34 RBC 4.29 M/mm3 (3.65-5.03) 01/27/21 07:34 Hgb 13.6 gm/dl (11.8-15.2) 01/27/21 07:34 Hct 40.3 % (35.5-45.6) 01/27/21 07:34 MCV 94 fl (84-94) 01/27/21 07:34 MCH 32 pg (28-32) 01/27/21 07:34 MCHC 34 % (32-34) 01/27/21 07:34 RDW 13.2 % (13.2-15.2) 01/27/21 07:34 Plt Count 251 K/mm3 (140-440) 01/27/21 07:34 Lymph % (Auto) 15.4 % (13.4-35.0) 01/26/21 05:13 [place] % (Auto) 13.9 % (0.0-7.3) H 01/26/21 05:13 Eos % (Auto) 4.0 % (0.0-4.3) 01/26/21 05:13 Baso % (Auto) 0.5 % (0.0-1.8) 01/26/21 05:13 Lymph # (Auto) 1.8 K/mm3 (1.2-5.4) 01/26/21 05:13 [place] # (Auto) 1.7 K/mm3 (0.0-0.8) H 01/26/21 05:13 Eos # (Auto) 0.5 K/mm3 (0.0-0.4) H 01/26/21 05:13 Baso # (Auto) 0.1 K/mm3 (0.0-0.1) 01/26/21 05:13 Seg Neutrophils % 66.2 % (40.0-70.0) 01/26/21 05:13 Seg Neutrophils # 7.9 K/mm3 (1.8-7.7) H 01/26/21 05:13 PT 14.3 Sec. (12.2-14.9) 01/25/21 06:02 INR 1.05 (0.87-1.13) 01/25/21 06:02 APTT 34.2 Sec. (24.2-36.6) 01/25/21 06:02 Thrombin Time 18.0 Sec. (15.1-19.6) 01/14/21 14:40 Sodium 136 mmol/L (137-145) L 01/27/21 07:34 Potassium 3.6 mmol/L (3.6-5.0) 01/27/21 07:34 Chloride 98.0 mmol/L (98-107) 01/27/21 07:34 Carbon Dioxide 27 mmol/L (22-30) 01/27/21 07:34 Anion Gap 15 mmol/L 01/27/21 07:34 BUN 7 mg/dL (9-20) L 01/27/21 07:34 Creatinine 0.5 mg/dL (0.8-1.3) L 01/27/21 07:34 Estimated GFR > 60 ml/min 01/27/21 07:34 BUN/Creatinine Ratio 14 % 01/27/21 07:34 Glucose 132 mg/dL (75-100) H 01/27/21 07:34 POC Glucose 141 mg/dL (70-105) H 01/31/21 22:40 Calcium 9.5 mg/dL (8.4-10.2) 01/27/21 07:34 Coronavirus (PCR) Negative (Negative) 01/31/21 Unknown Suarez/IV: Voiding Method Condom Catheter Active Medications - Current Medications Current Medications: Generic Name Dose Route Start Last Admin Trade Name Freq PRN Reason Stop Dose Admin Acetaminophen 650 mg 01/15/21 00:32 Acetaminophen 325 Mg Tab PO Q4H PRN Pain MILD(1-3)/Fever >100.5/LARIOS Albuterol 2.5 mg 01/15/21 00:32 Albuterol 2.5 Mg/3 Ml Nebu IH Q4HRT PRN Shortness Of Breath Amlodipine Besylate 10 mg 01/15/21 10:00 01/31/21 13:13 Amlodipine 10 Mg Tab PO 10 mg QDAY VANI Administration Lipase/Protease/Amylase 1 each 01/17/21 12:30 Lipase 10,500/Protease 25,000/Amylase 43,750 (Units) Dr Purcell FEEDTUBE PRN PRN For Clogged Feeding Tube Aspirin 325 mg 01/26/21 12:00 01/31/21 13:12 Aspirin 325 Mg Tab PO 325 mg QDAY VANI Administration Atorvastatin Calcium 40 mg 01/15/21 22:00 01/31/21 22:50 Atorvastatin 40 Mg Tab PO 40 mg QHS VANI Administration Clopidogrel Bisulfate 75 mg 01/26/21 14:00 01/31/21 13:15 Clopidogrel 75 Mg Tab PO 75 mg QDAY VANI Administration Heparin Sodium (Porcine) 5,000 unit 01/15/21 06:00 02/01/21 06:50 Heparin 5,000 Unit/1 Ml Vial SUB-Q 5,000 unit Q8HR VANI Administration Hydromorphone HCl 0.5 mg 01/15/21 00:32 01/19/21 03:11 Hydromorphone 1 Mg/1 Ml Inj IV 0.5 mg Q3H PRN Administration Pain , Severe (7-10) Lansoprazole 30 mg 01/26/21 12:00 01/31/21 13:15 Lansoprazole 30 Mg Solutab FEEDTUBE 30 mg QDAY VANI Administration Losartan Potassium 50 mg 01/28/21 10:00 01/31/21 13:10 Losartan 50 Mg Tab PO 50 mg QDAY VANI Administration Ondansetron HCl 4 mg 01/15/21 00:32 01/15/21 12:04 Ondansetron 4 Mg/2 Ml Inj IV 4 mg Q8H PRN Administration Nausea And Vomiting Simple Syrup 15 ml 01/17/21 12:30 Simple Syrup 15 Ml FEEDTUBE PRN PRN Hypoglycemia Simple Syrup 30 ml 01/17/21 12:30 Simple Syrup 15 Ml FEEDTUBE PRN PRN Hypoglycemia Sodium Bicarbonate 325 mg 01/17/21 12:30 Sodium Bicarbonate 325 Mg Tab FEEDTUBE PRN PRN For Clogged Feeding Tube Sodium Chloride 10 ml 01/15/21 10:00 01/31/21 22:50 Sodium Chloride 0.9% 10 Ml Flush Syringe IV 10 ml BID VANI Administration Sodium Chloride 10 ml 01/15/21 00:32 Sodium Chloride 0.9% 10 Ml Flush Syringe IV PRN PRN LINE FLUSH Nutrition/Malnutrition Assess - Dietary Evaluation Nutrition/Malnutrition Findings: Nutrition Notes Start: 01/17/21 12:10 Freq: Status: Active Protocol: Document 01/31/21 13:40 (Rec: 01/31/21 13:44 [email or web address]) Nutrition Notes Initial or Follow up Reassessment Current Diagnosis Hypertension,Stroke, Hyperlipidemia Other Pertinent Diagnosis Dysarthria, (R) sided weakness Current Diet [facility] soft Labs/Tests reviewed Pertinent Medications reviewed Height 5 ft 7 in Weight 107 kg [place] Body Weight (kg) 67.27 BMI 36.9 Weight Status Obese Subjective/Other Information RN states pt does very well with eating. He ate 75% of breakfast this AM. Percent of energy/protein needs met: 78%/100% Burn Absent Trauma Absent Current % PO Good (75-100%) Minimum of two criteria No #1 Nutrition Diagnosis Inadequate oral intake As Evidenced by Signs and Symptoms pt meeting 87%/100% of kcal/ protein needs Diagnosis Progress(for reassessment Resolved documentation) Is patient on ventilator? No Is Patient Ambulatory and/or Out of Bed No REE-([facility]-confined to bed) 2252.160 Kcal/Kg value to use for calculation 16 Approximate Energy Requirements Using 1712 kcal/Kg Calculation Used for Recommendations Kcal/kg Additional Notes Pro needs 0.8-1g/kg adjBW: 70- 88g/day Fluid needs 1ml/kcal Nutrition Intervention Nutrition Support: d/c Goal #1 Continue to meet at least 75% energy and pro needs Revisit per MD consult or patient Sign Off request:
[2021-02-01] MEDS: LANSOPRAZOLE 30 MG SOLUTAB FEEDTUBE SCH (19:32)
[2021-02-01] MEDS: CLOPIDOGREL 75 MG TAB PO SCH (19:32)
[2021-02-01] MEDS: LOSARTAN 50 MG TAB PO SCH (19:32)
[2021-02-01] MEDS: ASPIRIN 325 MG TAB PO SCH (19:33)
[2021-02-01] MEDS: amLODIPine 10 MG TAB PO SCH (19:34)
[2021-02-02] MEDS: HEPARIN 5,000 UNIT/1 ML VIAL SUB-Q SCH ×2 (06:54→22:14)
[2021-02-02] MEDS: LANSOPRAZOLE 30 MG SOLUTAB FEEDTUBE SCH (11:02)
[2021-02-02] MEDS: ASPIRIN 325 MG TAB PO SCH (11:02)
[2021-02-02] MEDS: LOSARTAN 50 MG TAB PO SCH (11:03)
[2021-02-02] MEDS: amLODIPine 10 MG TAB PO SCH (11:05)
[2021-02-02] MEDS: CLOPIDOGREL 75 MG TAB PO SCH (11:13)
--- NOTE | 2021-02-02 14:53 | Progress Note ---
Assessment and Plan Assessment and plan: -- Acute CVA (cerebral vascular accident) Admitted the patient to the medical telemetry. Aspirin 81 mg p.o. daily. Plavix 75 mg p.o. daily. Lipitor 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 is not a candidate for thrombectomy not TPA -CTA neck no significant abnormality -2d echo on july with preserved EF and another study ordered for PFO -MRI of the brain showed left-sided subcortical infarct. consulted PT OT any speech evaluation. We also consulted neurology Patient is nonverbal with dysphagia: failed speech eval, continue tube feeding and IV fluids S/p PEG tube placement by GI Awaiting placement. -- HTN (hypertension), uncontrolled Amlodipine 10 mg p.o. daily. Labetalol 10 mg IV every 6 hours as needed. we will monitor the blood pressure closely Patient is getting medications with tube feeding. We will increase losartan to 50 mg daily -- Hyperlipidemia Lipitor 40 mg daily Goal LDL less than 70. -- Dysarthria/dysphagia Tolerating PEG well awaiting placement. cont TF with PEG tube --Right-sided hemiparesis due to CVA Continue PT OT -- DVT prophylaxis Heparin 5000 units subcu every 8 hours for DVT prophylaxis. Protonix 40 mg p.o. daily for GI prophylaxis. Patient is a full code Subjective Date of service: 01/29/21 Principal diagnosis: right side weakness and worsening speech ouput. Interval history: 55-year-old male with past medical history of hypertension, hyperlipidemia and previous stroke w/o any residual weakness was brought to the hospital because of right-sided weakness and dysarthria. Family stated the patient has been dragging his right lower extremity while walking and Overnight the symptoms apparently worsened and EMS was called. Patient was admitted with stroke protocol. 01/16/21 Patient presented with right sided weakness , slurred speech. CT shows acute stroke. MRI ordered, pending. On Aspirin, Plavix, Lipitor patient was seen and evluated by Neurology PT/OT/Speech consulted 01/17/21 Patient presented with right sided weakness , slurred speech. CT shows acute ischemic stroke. MRI ordered, pending. Continue Aspirin,Plavix. Lipitor Keep NPO as per Speech therefore will start tube feeding with Dobhoff PT/OT to see Patient was evaluated by Dr. Jones, Neurology Will likely need acute rehab placement. 01/18/21; patient remains confused with right-sided weakness, unable to participate in swallow eval. continue history, continue TF 01/19: Patient continues to have right-sided hemiparesis, failed swallow eval, intermittently agitated with persistent confusion. Continue restraints. Continue tube feeding diet, adjust BP meds as needed, follow BMP. 01/20/21: Patient tolerating tube feeding with Dobbhoff. Remains restrained. Unable to move right upper and lower extremities, along with dysphagia and confusion. Waiting on repeat speech eval and PT eval. 01/21/21: Unable to do modified barium swallow study today as patient was not cooperative. Speech recommended to continue tube feeding, patient might need PEG tube placement -we will consult GI. Continue PT OT. 01/22/21: Continue supportive care, wait for repeat speech eval. Continue PT OT. Pending GI recommendation for PEG placement. 01/23/21: Clinically stable, remain restraint and confused nonverbal. Unable to participate in the swallow eval, need PEG tube. Pending GI recommendation. Continue tube feeding for now with Dobbhoff, PT OT eval 01/24/21: Continue tube feeding with Dobbhoff, continue PT OT as scheduled. Monitor vitals and BMP. Plan for PEG tube placement tomorrow. Discussed with mother at the bedside and updated her with all clinical details. 01/25/21: s/p Peg placement today. Patient tolerated procedure well, continue IV fluid, wait for tube feeding order once cleared by GI: Consulted dietary. 01/26/21: initiated TF with PEG today, follow CBC/BMP. CM working on placement. cont supportive care 01/27/2021. Patient tolerating tube feed well with PEG. Follow-up CMP BMP unremarkable. Awaiting placement. 01/28/2021. Patient mumbling. Eyes follow you attempt to make needs known. Follow-up labs unremarkable. Still awaiting placement. 01/28/2021 remains encephalopathic no new concerns overnight. Hospital course [facility] 01/30: Patient is on tube feeds and tolerating we will discontinue IV fluids at this time. [facility] No new complaint per nursing staff 01/31: covid ordered for placement. Increased statin to 80mg for 30 days and can be changed back to 40 as patint had a stroke while on statin. Also now plavix has been added as patient was on aspirin. Patient was denied inpatient rehab awaiting for SNF. 02/01: Patient seen and examined clinically stable at this time. Awaiting discharge planning to SNF. 02/02: Patient seen and examined, no new distress, tolerating diet, awaiting SNF placement. History Interval history: Patient seen and examined, NO NEW COMPLAINT Hospitalist Physical - Physical exam Narrative exam: General appearance: Present: no acute distress, well-nourished - EENT Eyes: PERRL, EOM intact ENT: hearing intact, clear oral mucosa Ears: bilateral: normal - Neck Neck: supple, normal ROM - Respiratory Respiratory effort: normal Respiratory: bilateral: CTA - Breasts Breasts: normal - Cardiovascular Rhythm: regular Heart Sounds: Present: S1 & S2. Absent: gallop, rub Extremities: pulses intact, No edema, normal color, Full ROM - Gastrointestinal General gastrointestinal: Present: soft, non-tender, non-distended, normal bowel sounds - Genitourinary Male genitourinary: normal - Integumentary Integumentary: clear, warm, dry - Musculoskeletal Musculoskeletal: left sided weakness - Neurologic Neurologic: moves all extremities, expressive aphasia - Psychiatric Psychiatric: other (Flat encephalopathic) - Constitutional Vitals: Temp Pulse Resp BP Pulse Ox 97.5 F L 85 16 120/71 99 02/02/21 04:17 02/02/21 11:05 02/02/21 04:17 02/02/21 04:17 02/02/21 04:17 General appearance: Present: no acute distress, well-nourished Results - Labs CBC & Chem 7: 01/27/21 07:34 01/27/21 07:34 Labs: Laboratory Last Values WBC 10.5 K/mm3 (4.5-11.0) 01/27/21 07:34 RBC 4.29 M/mm3 (3.65-5.03) 01/27/21 07:34 Hgb 13.6 gm/dl (11.8-15.2) 01/27/21 07:34 Hct 40.3 % (35.5-45.6) 01/27/21 07:34 MCV 94 fl (84-94) 01/27/21 07:34 MCH 32 pg (28-32) 01/27/21 07:34 MCHC 34 % (32-34) 01/27/21 07:34 RDW 13.2 % (13.2-15.2) 01/27/21 07:34 Plt Count 251 K/mm3 (140-440) 01/27/21 07:34 Lymph % (Auto) 15.4 % (13.4-35.0) 01/26/21 05:13 [place] % (Auto) 13.9 % (0.0-7.3) H 01/26/21 05:13 Eos % (Auto) 4.0 % (0.0-4.3) 01/26/21 05:13 Baso % (Auto) 0.5 % (0.0-1.8) 01/26/21 05:13 Lymph # (Auto) 1.8 K/mm3 (1.2-5.4) 01/26/21 05:13 [place] # (Auto) 1.7 K/mm3 (0.0-0.8) H 01/26/21 05:13 Eos # (Auto) 0.5 K/mm3 (0.0-0.4) H 01/26/21 05:13 Baso # (Auto) 0.1 K/mm3 (0.0-0.1) 01/26/21 05:13 Seg Neutrophils % 66.2 % (40.0-70.0) 01/26/21 05:13 Seg Neutrophils # 7.9 K/mm3 (1.8-7.7) H 01/26/21 05:13 PT 14.3 Sec. (12.2-14.9) 01/25/21 06:02 INR 1.05 (0.87-1.13) 01/25/21 06:02 APTT 34.2 Sec. (24.2-36.6) 01/25/21 06:02 Thrombin Time 18.0 Sec. (15.1-19.6) 01/14/21 14:40 Sodium 136 mmol/L (137-145) L 01/27/21 07:34 Potassium 3.6 mmol/L (3.6-5.0) 01/27/21 07:34 Chloride 98.0 mmol/L (98-107) 01/27/21 07:34 Carbon Dioxide 27 mmol/L (22-30) 01/27/21 07:34 Anion Gap 15 mmol/L 01/27/21 07:34 BUN 7 mg/dL (9-20) L 01/27/21 07:34 Creatinine 0.5 mg/dL (0.8-1.3) L 01/27/21 07:34 Estimated GFR > 60 ml/min 01/27/21 07:34 BUN/Creatinine Ratio 14 % 01/27/21 07:34 Glucose 132 mg/dL (75-100) H 01/27/21 07:34 POC Glucose 162 mg/dL (70-105) H 02/02/21 11:40 Calcium 9.5 mg/dL (8.4-10.2) 01/27/21 07:34 Coronavirus (PCR) Negative (Negative) 01/31/21 Unknown Suarez/IV: Voiding Method Condom Catheter Active Medications - Current Medications Current Medications: Generic Name Dose Route Start Last Admin Trade Name Freq PRN Reason Stop Dose Admin Acetaminophen 650 mg 01/15/21 00:32 Acetaminophen 325 Mg Tab PO Q4H PRN Pain MILD(1-3)/Fever >100.5/LARIOS Albuterol 2.5 mg 01/15/21 00:32 Albuterol 2.5 Mg/3 Ml Nebu IH Q4HRT PRN Shortness Of Breath Amlodipine Besylate 10 mg 01/15/21 10:00 02/02/21 11:05 Amlodipine 10 Mg Tab PO 10 mg QDAY VANI Administration Lipase/Protease/Amylase 1 each 01/17/21 12:30 Lipase 10,500/Protease 25,000/Amylase 43,750 (Units) Dr Purcell FEEDTUBE PRN PRN For Clogged Feeding Tube Aspirin 325 mg 01/26/21 12:00 02/02/21 11:02 Aspirin 325 Mg Tab PO 325 mg QDAY VANI Administration Atorvastatin Calcium 40 mg 01/15/21 22:00 02/01/21 21:58 Atorvastatin 40 Mg Tab PO 40 mg QHS VANI Administration Clopidogrel Bisulfate 75 mg 01/26/21 14:00 02/02/21 11:13 Clopidogrel 75 Mg Tab PO 75 mg QDAY VANI Administration Heparin Sodium (Porcine) 5,000 unit 01/15/21 06:00 02/02/21 06:54 Heparin 5,000 Unit/1 Ml Vial SUB-Q 5,000 unit Q8HR VANI Administration Hydromorphone HCl 0.5 mg 01/15/21 00:32 01/19/21 03:11 Hydromorphone 1 Mg/1 Ml Inj IV 0.5 mg Q3H PRN Administration Pain , Severe (7-10) Lansoprazole 30 mg 01/26/21 12:00 02/02/21 11:02 Lansoprazole 30 Mg Solutab FEEDTUBE 30 mg QDAY VANI Administration Losartan Potassium 50 mg 01/28/21 10:00 02/02/21 11:03 Losartan 50 Mg Tab PO 50 mg QDAY VANI Administration Ondansetron HCl 4 mg 01/15/21 00:32 01/15/21 12:04 Ondansetron 4 Mg/2 Ml Inj IV 4 mg Q8H PRN Administration Nausea And Vomiting Simple Syrup 15 ml 01/17/21 12:30 Simple Syrup 15 Ml FEEDTUBE PRN PRN Hypoglycemia Simple Syrup 30 ml 01/17/21 12:30 Simple Syrup 15 Ml FEEDTUBE PRN PRN Hypoglycemia Sodium Bicarbonate 325 mg 01/17/21 12:30 Sodium Bicarbonate 325 Mg Tab FEEDTUBE PRN PRN For Clogged Feeding Tube Sodium Chloride 10 ml 01/15/21 10:00 02/02/21 11:13 Sodium Chloride 0.9% 10 Ml Flush Syringe IV 10 ml BID VANI Administration Sodium Chloride 10 ml 01/15/21 00:32 Sodium Chloride 0.9% 10 Ml Flush Syringe IV PRN PRN LINE FLUSH Nutrition/Malnutrition Assess - Dietary Evaluation Nutrition/Malnutrition Findings: Nutrition Notes Start: 01/17/21 12:10 Freq: Status: Active Protocol: Document 01/31/21 13:40 (Rec: 01/31/21 13:44 [email or web address]) Nutrition Notes Initial or Follow up Reassessment Current Diagnosis Hypertension,Stroke, Hyperlipidemia Other Pertinent Diagnosis Dysarthria, (R) sided weakness Current Diet [facility] soft Labs/Tests reviewed Pertinent Medications reviewed Height 5 ft 7 in Weight 107 kg [place] Body Weight (kg) 67.27 BMI 36.9 Weight Status Obese Subjective/Other Information RN states pt does very well with eating. He ate 75% of breakfast this AM. Percent of energy/protein needs met: 78%/100% Burn Absent Trauma Absent Current % PO Good (75-100%) Minimum of two criteria No #1 Nutrition Diagnosis Inadequate oral intake As Evidenced by Signs and Symptoms pt meeting 87%/100% of kcal/ protein needs Diagnosis Progress(for reassessment Resolved documentation) Is patient on ventilator? No Is Patient Ambulatory and/or Out of Bed No REE-([facility]-confined to bed) 2252.160 Kcal/Kg value to use for calculation 16 Approximate Energy Requirements Using 1712 kcal/Kg Calculation Used for Recommendations Kcal/kg Additional Notes Pro needs 0.8-1g/kg adjBW: 70- 88g/day Fluid needs 1ml/kcal Nutrition Intervention Nutrition Support: d/c Goal #1 Continue to meet at least 75% energy and pro needs Revisit per MD consult or patient Sign Off request:
[2021-02-03] MEDS: HEPARIN 5,000 UNIT/1 ML VIAL SUB-Q SCH ×2 (05:57→12:59)
[2021-02-03] MEDS: CLOPIDOGREL 75 MG TAB PO SCH (12:53)
[2021-02-03] MEDS: ASPIRIN 325 MG TAB PO SCH (12:53)
[2021-02-03] MEDS: LOSARTAN 50 MG TAB PO SCH (12:53)
[2021-02-03] MEDS: LANSOPRAZOLE 30 MG SOLUTAB FEEDTUBE SCH (12:57)
[2021-02-03] MEDS: amLODIPine 10 MG TAB PO SCH (12:58)
--- NOTE | 2021-02-03 14:35 | Progress Note ---
Assessment and Plan Assessment and plan: 55-year-old male with past medical history of hypertension, hyperlipidemia and previous stroke w/o any residual weakness was brought to the hospital because of right-sided weakness and dysarthria. Family stated the patient has been dragging his right lower extremity while walking and Overnight the symptoms apparently worsened and EMS was called. Patient was admitted with stroke protocol. -- Acute CVA (cerebral vascular accident) Admitted the patient to the medical telemetry. Aspirin 81 mg p.o. daily. Plavix 75 mg p.o. daily. Lipitor 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 is not a candidate for thrombectomy not TPA -CTA neck no significant abnormality -2d echo on july with preserved EF and another study ordered for PFO -MRI of the brain showed left-sided subcortical infarct. consulted PT OT any speech evaluation. We also consulted neurology Patient is nonverbal with dysphagia: failed speech eval, continue tube feeding and IV fluids S/p PEG tube placement by GI Awaiting placement. -- HTN (hypertension), uncontrolled Amlodipine 10 mg p.o. daily. Labetalol 10 mg IV every 6 hours as needed. we will monitor the blood pressure closely Patient is getting medications with tube feeding. We will increase losartan to 50 mg daily -- Hyperlipidemia Lipitor 40 mg daily Goal LDL less than 70. -- Dysarthria/dysphagia Tolerating PEG well awaiting placement. cont TF with PEG tube --Right-sided hemiparesis due to CVA Continue PT OT -- DVT prophylaxis Heparin 5000 units subcu every 8 hours for DVT prophylaxis. Protonix 40 mg p.o. daily for GI prophylaxis. Patient is a full code 01/16/21 Patient presented with right sided weakness , slurred speech. CT shows acute stroke. MRI ordered, pending. On Aspirin, Plavix, Lipitor patient was seen and evluated by Neurology PT/OT/Speech consulted 01/17/21 Patient presented with right sided weakness , slurred speech. CT shows acute ischemic stroke. MRI ordered, pending. Continue Aspirin,Plavix. Lipitor Keep NPO as per Speech therefore will start tube feeding with Dobhoff PT/OT to see Patient was evaluated by Dr. Jones, Neurology Will likely need acute rehab placement. 01/18/21; patient remains confused with right-sided weakness, unable to participate in swallow eval. continue history, continue TF 01/19: Patient continues to have right-sided hemiparesis, failed swallow eval, intermittently agitated with persistent confusion. Continue restraints. Continue tube feeding diet, adjust BP meds as needed, follow BMP. 01/20/21: Patient tolerating tube feeding with Dobbhoff. Remains restrained. U nable to move right upper and lower extremities, along with dysphagia and confusion. Waiting on repeat speech eval and PT eval. 01/21/21: Unable to do modified barium swallow study today as patient was not cooperative. Speech recommended to continue tube feeding, patient might need PEG tube placement -we will consult GI. Continue PT OT. 01/22/21: Continue supportive care, wait for repeat speech eval. Continue PT OT. Pending GI recommendation for PEG placement. 01/23/21: Clinically stable, remain restraint and confused nonverbal. Unable to participate in the swallow eval, need PEG tube. Pending GI recommendation. Continue tube feeding for now with Dobbhoff, PT OT eval 01/24/21: Continue tube feeding with Dobbhoff, continue PT OT as scheduled. Monitor vitals and BMP. Plan for PEG tube placement tomorrow. Discussed with mother at the bedside and updated her with all clinical details. 01/25/21: s/p Peg placement today. Patient tolerated procedure well, continue IV fluid, wait for tube feeding order once cleared by GI: Consulted dietary. 01/26/21: initiated TF with PEG today, follow CBC/BMP. CM working on placement. cont supportive care 01/27/2021. Patient tolerating tube feed well with PEG. Follow-up CMP BMP unremarkable. Awaiting placement. 01/28/2021. Patient mumbling. Eyes follow you attempt to make needs known. Follow-up labs unremarkable. Still awaiting placement. 01/28/2021 remains encephalopathic no new concerns overnight. Hospital course unremarkable [facility] 01/30: Patient is on tube feeds and tolerating we will discontinue IV fluids at this time. [facility] is [facility] No new complaint per nursing staff 01/31: covid ordered for placement. Increased statin to 80mg for 30 days and can be changed back to 40 as patint had a stroke while on statin. Also now plavix has been added as patient was on aspirin. Patient was denied inpatient rehab awaiting for SNF. 02/01: Patient seen and examined clinically stable at this time. Awaiting discharge planning to SNF. 02/02: Patient seen and examined, no new distress, tolerating diet, awaiting SNF placement. 02/03: Patient remains stable, following commands, eating with assistance, no new complaints. History Interval history: Patient seen and examined, NO NEW COMPLAINT, Discussed with the physician at [facility] Physical - Physical exam Narrative exam: General appearance: Present: no acute distress, well-nourished - EENT Eyes: PERRL, EOM intact ENT: hearing intact, clear oral mucosa Ears: bilateral: normal - Neck Neck: supple, normal ROM - Respiratory Respiratory effort: normal Respiratory: bilateral: CTA - Breasts Breasts: normal - Cardiovascular Rhythm: regular Heart Sounds: Present: S1 & S2. Absent: gallop, rub Extremities: pulses intact, No edema, normal color, Full ROM - Gastrointestinal General gastrointestinal: Present: soft, non-tender, non-distended, normal bowel sounds - Genitourinary Male genitourinary: normal - Integumentary Integumentary: clear, warm, dry - Musculoskeletal Musculoskeletal: left and right sided weakness - Neurologic Neurologic: moves left extremities, but still weak on the right sided, expressive aphasia, - Psychiatric Psychiatric: flat - Constitutional Vitals: Temp Pulse Resp BP Pulse Ox 98.3 F 95 H 20 123/77 97 02/03/21 07:09 02/03/21 12:58 02/03/21 07:09 02/03/21 07:09 02/03/21 07:09 General appearance: Present: no acute distress, well-nourished Results - Labs CBC & Chem 7: 01/27/21 07:34 01/27/21 07:34 Labs: Laboratory Last Values WBC 10.5 K/mm3 (4.5-11.0) 01/27/21 07:34 RBC 4.29 M/mm3 (3.65-5.03) 01/27/21 07:34 Hgb 13.6 gm/dl (11.8-15.2) 01/27/21 07:34 Hct 40.3 % (35.5-45.6) 01/27/21 07:34 MCV 94 fl (84-94) 01/27/21 07:34 MCH 32 pg (28-32) 01/27/21 07:34 MCHC 34 % (32-34) 01/27/21 07:34 RDW 13.2 % (13.2-15.2) 01/27/21 07:34 Plt Count 251 K/mm3 (140-440) 01/27/21 07:34 Lymph % (Auto) 15.4 % (13.4-35.0) 01/26/21 05:13 [place] % (Auto) 13.9 % (0.0-7.3) H 01/26/21 05:13 Eos % (Auto) 4.0 % (0.0-4.3) 01/26/21 05:13 Baso % (Auto) 0.5 % (0.0-1.8) 01/26/21 05:13 Lymph # (Auto) 1.8 K/mm3 (1.2-5.4) 01/26/21 05:13 [place] # (Auto) 1.7 K/mm3 (0.0-0.8) H 01/26/21 05:13 Eos # (Auto) 0.5 K/mm3 (0.0-0.4) H 01/26/21 05:13 Baso # (Auto) 0.1 K/mm3 (0.0-0.1) 01/26/21 05:13 Seg Neutrophils % 66.2 % (40.0-70.0) 01/26/21 05:13 Seg Neutrophils # 7.9 K/mm3 (1.8-7.7) H 01/26/21 05:13 PT 14.3 Sec. (12.2-14.9) 01/25/21 06:02 INR 1.05 (0.87-1.13) 01/25/21 06:02 APTT 34.2 Sec. (24.2-36.6) 01/25/21 06:02 Thrombin Time 18.0 Sec. (15.1-19.6) 01/14/21 14:40 Sodium 136 mmol/L (137-145) L 01/27/21 07:34 Potassium 3.6 mmol/L (3.6-5.0) 01/27/21 07:34 Chloride 98.0 mmol/L (98-107) 01/27/21 07:34 Carbon Dioxide 27 mmol/L (22-30) 01/27/21 07:34 Anion Gap 15 mmol/L 01/27/21 07:34 BUN 7 mg/dL (9-20) L 01/27/21 07:34 Creatinine 0.5 mg/dL (0.8-1.3) L 01/27/21 07:34 Estimated GFR > 60 ml/min 01/27/21 07:34 BUN/Creatinine Ratio 14 % 01/27/21 07:34 Glucose 132 mg/dL (75-100) H 01/27/21 07:34 POC Glucose 108 mg/dL (70-105) H 02/03/21 13:32 Calcium 9.5 mg/dL (8.4-10.2) 01/27/21 07:34 Coronavirus (PCR) Negative (Negative) 01/31/21 Unknown Suarez/IV: Voiding Method Condom Catheter Active Medications - Current Medications Current Medications: Generic Name Dose Route Start Last Admin Trade Name Freq PRN Reason Stop Dose Admin Acetaminophen 650 mg 01/15/21 00:32 Acetaminophen 325 Mg Tab PO Q4H PRN Pain MILD(1-3)/Fever >100.5/LARIOS Albuterol 2.5 mg 01/15/21 00:32 Albuterol 2.5 Mg/3 Ml Nebu IH Q4HRT PRN Shortness Of Breath Amlodipine Besylate 10 mg 01/15/21 10:00 02/03/21 12:58 Amlodipine 10 Mg Tab PO 10 mg QDAY VANI Administration Lipase/Protease/Amylase 1 each 01/17/21 12:30 Lipase 10,500/Protease 25,000/Amylase 43,750 (Units) Dr Purcell FEEDTUBE PRN PRN For Clogged Feeding Tube Aspirin 325 mg 01/26/21 12:00 02/03/21 12:53 Aspirin 325 Mg Tab PO 325 mg QDAY VANI Administration Atorvastatin Calcium 40 mg 01/15/21 22:00 02/02/21 22:13 Atorvastatin 40 Mg Tab PO 40 mg QHS VANI Administration Clopidogrel Bisulfate 75 mg 01/26/21 14:00 02/03/21 12:53 Clopidogrel 75 Mg Tab PO 75 mg QDAY VANI Administration Heparin Sodium (Porcine) 5,000 unit 01/15/21 06:00 02/03/21 12:59 Heparin 5,000 Unit/1 Ml Vial SUB-Q 5,000 unit Q8HR VANI Administration Hydromorphone HCl 0.5 mg 01/15/21 00:32 01/19/21 03:11 Hydromorphone 1 Mg/1 Ml Inj IV 0.5 mg Q3H PRN Administration Pain , Severe (7-10) Lansoprazole 30 mg 01/26/21 12:00 02/03/21 12:57 Lansoprazole 30 Mg Solutab FEEDTUBE 30 mg QDAY VANI Administration Losartan Potassium 50 mg 01/28/21 10:00 02/03/21 12:53 Losartan 50 Mg Tab PO 50 mg QDAY VANI Administration Ondansetron HCl 4 mg 01/15/21 00:32 01/15/21 12:04 Ondansetron 4 Mg/2 Ml Inj IV 4 mg Q8H PRN Administration Nausea And Vomiting Simple Syrup 15 ml 01/17/21 12:30 Simple Syrup 15 Ml FEEDTUBE PRN PRN Hypoglycemia Simple Syrup 30 ml 01/17/21 12:30 Simple Syrup 15 Ml FEEDTUBE PRN PRN Hypoglycemia Sodium Bicarbonate 325 mg 01/17/21 12:30 Sodium Bicarbonate 325 Mg Tab FEEDTUBE PRN PRN For Clogged Feeding Tube Sodium Chloride 10 ml 01/15/21 10:00 02/03/21 12:57 Sodium Chloride 0.9% 10 Ml Flush Syringe IV 10 ml BID VANI Administration Sodium Chloride 10 ml 01/15/21 00:32 Sodium Chloride 0.9% 10 Ml Flush Syringe IV PRN PRN LINE FLUSH Nutrition/Malnutrition Assess - Dietary Evaluation Nutrition/Malnutrition Findings: Nutrition Notes Start: 01/17/21 12:10 Freq: Status: Active Protocol: Document 01/31/21 13:40 (Rec: 01/31/21 13:44 [id number]) Nutrition Notes Initial or Follow up Reassessment Current Diagnosis Hypertension,Stroke, Hyperlipidemia Other Pertinent Diagnosis Dysarthria, (R) sided weakness Current Diet [facility] soft Labs/Tests reviewed Pertinent Medications reviewed Height 5 ft 7 in Weight 107 kg [place] Body Weight (kg) 67.27 BMI 36.9 Weight Status Obese Subjective/Other Information RN states pt does very well with eating. He ate 75% of breakfast this AM. Percent of energy/protein needs met: 78%/100% Burn Absent Trauma Absent Current % PO Good (75-100%) Minimum of two criteria No #1 Nutrition Diagnosis Inadequate oral intake As Evidenced by Signs and Symptoms pt meeting 87%/100% of kcal/ protein needs Diagnosis Progress(for reassessment Resolved documentation) Is patient on ventilator? No Is Patient Ambulatory and/or Out of Bed No REE-([facility]-confined to bed) 2252.160 Kcal/Kg value to use for calculation 16 Approximate Energy Requirements Using 1712 kcal/Kg Calculation Used for Recommendations Kcal/kg Additional Notes Pro needs 0.8-1g/kg adjBW: 70- 88g/day Fluid needs 1ml/kcal Nutrition Intervention Nutrition Support: d/c Goal #1 Continue to meet at least 75% energy and pro needs Revisit per MD consult or patient Sign Off request:
[2021-02-04] MEDS: HEPARIN 5,000 UNIT/1 ML VIAL SUB-Q SCH ×3 (00:55→22:45)
--- NOTE | 2021-02-04 09:59 | Progress Note ---
Assessment and Plan Assessment and plan: 55-year-old male with past medical history of hypertension, hyperlipidemia and previous stroke w/o any residual weakness was brought to the hospital because of right-sided weakness and dysarthria. Family stated the patient has been dragging his right lower extremity while walking and Overnight the symptoms apparently worsened and EMS was called. Patient was admitted with stroke protocol. -- Acute CVA (cerebral vascular accident) Admitted the patient to the medical telemetry. Aspirin 81 mg p.o. daily. Plavix 75 mg p.o. daily. Lipitor 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 is not a candidate for thrombectomy not TPA -CTA neck no significant abnormality -2d echo on july with preserved EF and another study ordered for PFO -MRI of the brain showed left-sided subcortical infarct. consulted PT OT any speech evaluation. We also consulted neurology Patient is nonverbal with dysphagia: failed speech eval, continue tube feeding and IV fluids S/p PEG tube placement by GI Awaiting placement. -- HTN (hypertension), uncontrolled Amlodipine 10 mg p.o. daily. Labetalol 10 mg IV every 6 hours as needed. we will monitor the blood pressure closely Patient is getting medications with tube feeding. We will increase losartan to 50 mg daily -- Hyperlipidemia Lipitor 40 mg daily Goal LDL less than 70. -- Dysarthria/dysphagia Tolerating PEG well awaiting placement. cont TF with PEG tube --Right-sided hemiparesis due to CVA Continue PT OT -- DVT prophylaxis Heparin 5000 units subcu every 8 hours for DVT prophylaxis. Protonix 40 mg p.o. daily for GI prophylaxis. Patient is a full code 01/16/21 Patient presented with right sided weakness , slurred speech. CT shows acute stroke. MRI ordered, pending. On Aspirin, Plavix, Lipitor patient was seen and evluated by Neurology PT/OT/Speech consulted 01/17/21 Patient presented with right sided weakness , slurred speech. CT shows acute ischemic stroke. MRI ordered, pending. Continue Aspirin,Plavix. Lipitor Keep NPO as per Speech therefore will start tube feeding with Dobhoff PT/OT to see Patient was evaluated by Dr. Jones, Neurology Will likely need acute rehab placement. 01/18/21; patient remains confused with right-sided weakness, unable to participate in swallow eval. continue history, continue TF 01/19: Patient continues to have right-sided hemiparesis, failed swallow eval, intermittently agitated with persistent confusion. Continue restraints. Continue tube feeding diet, adjust BP meds as needed, follow BMP. 01/20/21: Patient tolerating tube feeding with Dobbhoff. Remains restrained. U nable to move right upper and lower extremities, along with dysphagia and confusion. Waiting on repeat speech eval and PT eval. 01/21/21: Unable to do modified barium swallow study today as patient was not cooperative. Speech recommended to continue tube feeding, patient might need PEG tube placement -we will consult GI. Continue PT OT. 01/22/21: Continue supportive care, wait for repeat speech eval. Continue PT OT. Pending GI recommendation for PEG placement. 01/23/21: Clinically stable, remain restraint and confused nonverbal. Unable to participate in the swallow eval, need PEG tube. Pending GI recommendation. Continue tube feeding for now with Dobbhoff, PT OT eval 01/24/21: Continue tube feeding with Dobbhoff, continue PT OT as scheduled. Monitor vitals and BMP. Plan for PEG tube placement tomorrow. Discussed with mother at the bedside and updated her with all clinical details. 01/25/21: s/p Peg placement today. Patient tolerated procedure well, continue IV fluid, wait for tube feeding order once cleared by GI: Consulted dietary. 01/26/21: initiated TF with PEG today, follow CBC/BMP. CM working on placement. cont supportive care 01/27/2021. Patient tolerating tube feed well with PEG. Follow-up CMP BMP unremarkable. Awaiting placement. 01/28/2021. Patient mumbling. Eyes follow you attempt to make needs known. Follow-up labs unremarkable. Still awaiting placement. 01/28/2021 remains encephalopathic no new concerns overnight. Hospital course unremarkable awaiting placement [facility] 01/30: Patient is on tube feeds and tolerating we will discontinue IV fluids at this time. Patient is awaiting placement to [facility]. No new complaint per nursing staff 01/31: covid ordered for placement. Increased statin to 80mg for 30 days and can be changed back to 40 as patint had a stroke while on statin. Also now plavix has been added as patient was on aspirin. Patient was denied inpatient rehab awaiting for SNF. 02/01: Patient seen and examined clinically stable at this time. Awaiting discharge planning to SNF. 02/02: Patient seen and examined, no new distress, tolerating diet, awaiting SNF placement. 02/03: Patient remains stable, following commands, eating with assistance, no new complaints. 02/04: Patient seen and examined this morning resting comfortably. Still with right-sided palsy otherwise tolerating diet this morning. Still awaiting placement History Interval history: Patient seen and examined, NO NEW COMPLAINT Hospitalist Physical - Physical exam Narrative exam: General appearance: Present: no acute distress, well-nourished - EENT Eyes: PERRL, EOM intact ENT: hearing intact, clear oral mucosa Ears: bilateral: normal - Neck Neck: supple, normal ROM - Respiratory Respiratory effort: normal Respiratory: bilateral: CTA - Breasts Breasts: normal - Cardiovascular Rhythm: regular Heart Sounds: Present: S1 & S2. Absent: gallop, rub Extremities: pulses intact, No edema, normal color, Full ROM - Gastrointestinal General gastrointestinal: Present: soft, non-tender, non-distended, normal bowel sounds - Genitourinary Male genitourinary: normal - Integumentary Integumentary: clear, warm, dry - Musculoskeletal Musculoskeletal: left and right sided weakness - Neurologic Neurologic: moves left extremities, but still weak on the right sided, expressive aphasia, - Psychiatric Psychiatric: flat - Constitutional Vitals: Temp Pulse Resp BP Pulse Ox 98.9 F 92 H 20 125/73 95 02/04/21 08:23 02/04/21 08:23 02/04/21 08:23 02/04/21 08:23 02/04/21 08:23 General appearance: Present: no acute distress, well-nourished Results - Labs CBC & Chem 7: 01/27/21 07:34 01/27/21 07:34 Labs: Laboratory Last Values WBC 10.5 K/mm3 (4.5-11.0) 01/27/21 07:34 RBC 4.29 M/mm3 (3.65-5.03) 01/27/21 07:34 Hgb 13.6 gm/dl (11.8-15.2) 01/27/21 07:34 Hct 40.3 % (35.5-45.6) 01/27/21 07:34 MCV 94 fl (84-94) 01/27/21 07:34 MCH 32 pg (28-32) 01/27/21 07:34 MCHC 34 % (32-34) 01/27/21 07:34 RDW 13.2 % (13.2-15.2) 01/27/21 07:34 Plt Count 251 K/mm3 (140-440) 01/27/21 07:34 Lymph % (Auto) 15.4 % (13.4-35.0) 01/26/21 05:13 [place] % (Auto) 13.9 % (0.0-7.3) H 01/26/21 05:13 Eos % (Auto) 4.0 % (0.0-4.3) 01/26/21 05:13 Baso % (Auto) 0.5 % (0.0-1.8) 01/26/21 05:13 Lymph # (Auto) 1.8 K/mm3 (1.2-5.4) 01/26/21 05:13 [place] # (Auto) 1.7 K/mm3 (0.0-0.8) H 01/26/21 05:13 Eos # (Auto) 0.5 K/mm3 (0.0-0.4) H 01/26/21 05:13 Baso # (Auto) 0.1 K/mm3 (0.0-0.1) 01/26/21 05:13 Seg Neutrophils % 66.2 % (40.0-70.0) 01/26/21 05:13 Seg Neutrophils # 7.9 K/mm3 (1.8-7.7) H 01/26/21 05:13 PT 14.3 Sec. (12.2-14.9) 01/25/21 06:02 INR 1.05 (0.87-1.13) 01/25/21 06:02 APTT 34.2 Sec. (24.2-36.6) 01/25/21 06:02 Thrombin Time 18.0 Sec. (15.1-19.6) 01/14/21 14:40 Sodium 136 mmol/L (137-145) L 01/27/21 07:34 Potassium 3.6 mmol/L (3.6-5.0) 01/27/21 07:34 Chloride 98.0 mmol/L (98-107) 01/27/21 07:34 Carbon Dioxide 27 mmol/L (22-30) 01/27/21 07:34 Anion Gap 15 mmol/L 01/27/21 07:34 BUN 7 mg/dL (9-20) L 01/27/21 07:34 Creatinine 0.5 mg/dL (0.8-1.3) L 01/27/21 07:34 Estimated GFR > 60 ml/min 01/27/21 07:34 BUN/Creatinine Ratio 14 % 01/27/21 07:34 Glucose 132 mg/dL (75-100) H 01/27/21 07:34 POC Glucose 134 mg/dL (70-105) H 02/03/21 16:42 Calcium 9.5 mg/dL (8.4-10.2) 01/27/21 07:34 Coronavirus (PCR) Negative (Negative) 01/31/21 Unknown Suarez/IV: Voiding Method Condom Catheter Active Medications - Current Medications Current Medications: Generic Name Dose Route Start Last Admin Trade Name Freq PRN Reason Stop Dose Admin Acetaminophen 650 mg 01/15/21 00:32 Acetaminophen 325 Mg Tab PO Q4H PRN Pain MILD(1-3)/Fever >100.5/LARIOS Albuterol 2.5 mg 01/15/21 00:32 Albuterol 2.5 Mg/3 Ml Nebu IH Q4HRT PRN Shortness Of Breath Amlodipine Besylate 10 mg 01/15/21 10:00 02/03/21 12:58 Amlodipine 10 Mg Tab PO 10 mg QDAY VANI Administration Lipase/Protease/Amylase 1 each 01/17/21 12:30 Lipase 10,500/Protease 25,000/Amylase 43,750 (Units) Dr Binh MONTALVOTUBE PRN PRN For Clogged Feeding Tube Aspirin 325 mg 01/26/21 12:00 02/03/21 12:53 Aspirin 325 Mg Tab PO 325 mg QDAY VANI Administration Atorvastatin Calcium 40 mg 01/15/21 22:00 02/04/21 00:56 Atorvastatin 40 Mg Tab PO 40 mg QHS VANI Administration Clopidogrel Bisulfate 75 mg 01/26/21 14:00 02/03/21 12:53 Clopidogrel 75 Mg Tab PO 75 mg QDAY VANI Administration Heparin Sodium (Porcine) 5,000 unit 01/15/21 06:00 02/04/21 00:55 Heparin 5,000 Unit/1 Ml Vial SUB-Q 5,000 unit Q8HR VANI Administration Hydromorphone HCl 0.5 mg 01/15/21 00:32 01/19/21 03:11 Hydromorphone 1 Mg/1 Ml Inj IV 0.5 mg Q3H PRN Administration Pain , Severe (7-10) Lansoprazole 30 mg 01/26/21 12:00 02/03/21 12:57 Lansoprazole 30 Mg Solutab FEEDTUBE 30 mg QDAY VANI Administration Losartan Potassium 50 mg 01/28/21 10:00 02/03/21 12:53 Losartan 50 Mg Tab PO 50 mg QDAY VANI Administration Ondansetron HCl 4 mg 01/15/21 00:32 01/15/21 12:04 Ondansetron 4 Mg/2 Ml Inj IV 4 mg Q8H PRN Administration Nausea And Vomiting Simple Syrup 15 ml 01/17/21 12:30 Simple Syrup 15 Ml FEEDTUBE PRN PRN Hypoglycemia Simple Syrup 30 ml 01/17/21 12:30 Simple Syrup 15 Ml FEEDTUBE PRN PRN Hypoglycemia Sodium Bicarbonate 325 mg 01/17/21 12:30 Sodium Bicarbonate 325 Mg Tab FEEDTUBE PRN PRN For Clogged Feeding Tube Sodium Chloride 10 ml 01/15/21 10:00 02/04/21 00:57 Sodium Chloride 0.9% 10 Ml Flush Syringe IV 10 ml BID VANI Administration Sodium Chloride 10 ml 01/15/21 00:32 Sodium Chloride 0.9% 10 Ml Flush Syringe IV PRN PRN LINE FLUSH Nutrition/Malnutrition Assess - Dietary Evaluation Nutrition/Malnutrition Findings: Nutrition Notes Start: 01/17/21 12:10 Freq: Status: Active Protocol: Document 01/31/21 13:40 (Rec: 01/31/21 13:44 [email or web address] [id number]) Nutrition Notes Initial or Follow up Reassessment Current Diagnosis Hypertension,Stroke, Hyperlipidemia Other Pertinent Diagnosis Dysarthria, (R) sided weakness Current Diet [facility] soft Labs/Tests reviewed Pertinent Medications reviewed Height 5 ft 7 in Weight 107 kg [place] Body Weight (kg) 67.27 BMI 36.9 Weight Status Obese Subjective/Other Information RN states pt does very well with eating. He ate 75% of breakfast this AM. Percent of energy/protein needs met: 78%/100% Burn Absent Trauma Absent Current % PO Good (75-100%) Minimum of two criteria No #1 Nutrition Diagnosis Inadequate oral intake As Evidenced by Signs and Symptoms pt meeting 87%/100% of kcal/ protein needs Diagnosis Progress(for reassessment Resolved documentation) Is patient on ventilator? No Is Patient Ambulatory and/or Out of Bed No REE-([place]-confined to bed) 2252.160 Kcal/Kg value to use for calculation 16 Approximate Energy Requirements Using 1712 kcal/Kg Calculation Used for Recommendations Kcal/kg Additional Notes Pro needs 0.8-1g/kg adjBW: 70- 88g/day Fluid needs 1ml/kcal Nutrition Intervention Nutrition Support: d/c Goal #1 Continue to meet at least 75% energy and pro needs Revisit per MD consult or patient Sign Off request:
[2021-02-04] MEDS: LANSOPRAZOLE 30 MG SOLUTAB FEEDTUBE SCH (11:17)
[2021-02-04] MEDS: LOSARTAN 50 MG TAB PO SCH (11:17)
[2021-02-04] MEDS: ASPIRIN 325 MG TAB PO SCH (11:17)
[2021-02-04] MEDS: amLODIPine 10 MG TAB PO SCH (11:18)
[2021-02-04] MEDS: CLOPIDOGREL 75 MG TAB PO SCH (11:18)
[2021-02-05] MEDS: HEPARIN 5,000 UNIT/1 ML VIAL SUB-Q SCH ×4 (06:49→21:40)
[2021-02-05] MEDS: CLOPIDOGREL 75 MG TAB PO SCH (09:57)
[2021-02-05] MEDS: LANSOPRAZOLE 30 MG SOLUTAB FEEDTUBE SCH (09:57)
[2021-02-05] MEDS: amLODIPine 10 MG TAB PO SCH (09:57)
[2021-02-05] MEDS: LOSARTAN 50 MG TAB PO SCH (09:57)
[2021-02-05] MEDS: ASPIRIN 325 MG TAB PO SCH (09:57)
--- NOTE | 2021-02-05 12:42 | Progress Note ---
Assessment and Plan Assessment and plan: 55-year-old male with past medical history of hypertension, hyperlipidemia and previous stroke w/o any residual weakness was brought to the hospital because of right-sided weakness and dysarthria. Family stated the patient has been dragging his right lower extremity while walking and Overnight the symptoms apparently worsened and EMS was called. Patient was admitted with stroke protocol. -- Acute CVA (cerebral vascular accident) Admitted the patient to the medical telemetry. Aspirin 81 mg p.o. daily. Plavix 75 mg p.o. daily. Lipitor 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 is not a candidate for thrombectomy not TPA -CTA neck no significant abnormality -2d echo on july with preserved EF and another study ordered for PFO -MRI of the brain showed left-sided subcortical infarct. consulted PT OT any speech evaluation. We also consulted neurology Patient is nonverbal with dysphagia: failed speech eval, continue tube feeding and IV fluids S/p PEG tube placement by GI Awaiting placement. -- HTN (hypertension), uncontrolled Amlodipine 10 mg p.o. daily. Labetalol 10 mg IV every 6 hours as needed. we will monitor the blood pressure closely Patient is getting medications with tube feeding. We will increase losartan to 50 mg daily -- Hyperlipidemia Lipitor 40 mg daily Goal LDL less than 70. -- Dysarthria/dysphagia Tolerating PEG well awaiting placement. cont TF with PEG tube --Right-sided hemiparesis due to CVA Continue PT OT -- DVT prophylaxis Heparin 5000 units subcu every 8 hours for DVT prophylaxis. Protonix 40 mg p.o. daily for GI prophylaxis. Patient is a full code 01/16/21 Patient presented with right sided weakness , slurred speech. CT shows acute stroke. MRI ordered, pending. On Aspirin, Plavix, Lipitor patient was seen and evluated by Neurology PT/OT/Speech consulted 01/17/21 Patient presented with right sided weakness , slurred speech. CT shows acute ischemic stroke. MRI ordered, pending. Continue Aspirin,Plavix. Lipitor Keep NPO as per Speech therefore will start tube feeding with Dobhoff PT/OT to see Patient was evaluated by Dr. Jones, Neurology Will likely need acute rehab placement. 01/18/21; patient remains confused with right-sided weakness, unable to participate in swallow eval. continue history, continue TF 01/19: Patient continues to have right-sided hemiparesis, failed swallow eval, intermittently agitated with persistent confusion. Continue restraints. Continue tube feeding diet, adjust BP meds as needed, follow BMP. 01/20/21: Patient tolerating tube feeding with Dobbhoff. Remains restrained. U nable to move right upper and lower extremities, along with dysphagia and confusion. Waiting on repeat speech eval and PT eval. 01/21/21: Unable to do modified barium swallow study today as patient was not cooperative. Speech recommended to continue tube feeding, patient might need PEG tube placement -we will consult GI. Continue PT OT. 01/22/21: Continue supportive care, wait for repeat speech eval. Continue PT OT. Pending GI recommendation for PEG placement. 01/23/21: Clinically stable, remain restraint and confused nonverbal. Unable to participate in the swallow eval, need PEG tube. Pending GI recommendation. Continue tube feeding for now with Dobbhoff, PT OT eval 01/24/21: Continue tube feeding with Dobbhoff, continue PT OT as scheduled. Monitor vitals and BMP. Plan for PEG tube placement tomorrow. Discussed with mother at the bedside and updated her with all clinical details. 01/25/21: s/p Peg placement today. Patient tolerated procedure well, continue IV fluid, wait for tube feeding order once cleared by GI: Consulted dietary. 01/26/21: initiated TF with PEG today, follow CBC/BMP. CM working on placement. cont supportive care 01/27/2021. Patient tolerating tube feed well with PEG. Follow-up CMP BMP unremarkable. Awaiting placement. 01/28/2021. Patient mumbling. Eyes follow you attempt to make needs known. Follow-up labs unremarkable. Still awaiting placement. 01/28/2021 remains encephalopathic no new concerns overnight. Hospital course unremarkable awaiting placement shelter facility 01/30: Patient is on tube feeds and tolerating we will discontinue IV fluids at this time. Patient is awaiting placement to shelter facility. No new complaint per nursing staff 01/31: covid ordered for placement. Increased statin to 80mg for 30 days and can be changed back to 40 as patint had a stroke while on statin. Also now plavix has been added as patient was on aspirin. Patient was denied inpatient rehab awaiting for SNF. 02/01: Patient seen and examined clinically stable at this time. Awaiting discharge planning to SNF. 02/02: Patient seen and examined, no new distress, tolerating diet, awaiting SNF placement. 02/03: Patient remains stable, following commands, eating with assistance, no new complaints. 02/04: Patient seen and examined this morning resting comfortably. Still with right-sided palsy otherwise tolerating diet this morning. Still awaiting placement 02/05: Continue supportive care awaiting placement. Aspiration precautions. Plan discussed with the patient and nurse. History Interval history: Patient seen and examined, NO NEW COMPLAINT Hospitalist Physical - Physical exam Narrative exam: General appearance: Present: no acute distress, well-nourished - EENT Eyes: PERRL, EOM intact ENT: hearing intact, clear oral mucosa Ears: bilateral: normal - Neck Neck: supple, normal ROM - Respiratory Respiratory effort: normal Respiratory: bilateral: CTA - Breasts Breasts: normal - Cardiovascular Rhythm: regular Heart Sounds: Present: S1 & S2. Absent: gallop, rub Extremities: pulses intact, No edema, normal color, Full ROM - Gastrointestinal General gastrointestinal: Present: soft, non-tender, non-distended, normal bowel sounds - Genitourinary Male genitourinary: normal - Integumentary Integumentary: clear, warm, dry - Musculoskeletal Musculoskeletal: left and right sided weakness - Neurologic Neurologic: moves left extremities, but still weak on the right sided, expressive aphasia, - Psychiatric Psychiatric: flat - Constitutional Vitals: Temp Pulse Resp BP Pulse Ox 98.9 F 87 20 112/66 98 02/05/21 04:34 02/05/21 10:00 02/05/21 10:00 02/05/21 08:13 02/05/21 10:00 General appearance: Present: no acute distress, well-nourished Results - Labs CBC & Chem 7: 01/27/21 07:34 01/27/21 07:34 Labs: Laboratory Last Values WBC 10.5 K/mm3 (4.5-11.0) 01/27/21 07:34 RBC 4.29 M/mm3 (3.65-5.03) 01/27/21 07:34 Hgb 13.6 gm/dl (11.8-15.2) 01/27/21 07:34 Hct 40.3 % (35.5-45.6) 01/27/21 07:34 MCV 94 fl (84-94) 01/27/21 07:34 MCH 32 pg (28-32) 01/27/21 07:34 MCHC 34 % (32-34) 01/27/21 07:34 RDW 13.2 % (13.2-15.2) 01/27/21 07:34 Plt Count 251 K/mm3 (140-440) 01/27/21 07:34 Lymph % (Auto) 15.4 % (13.4-35.0) 01/26/21 05:13 [place] % (Auto) 13.9 % (0.0-7.3) H 01/26/21 05:13 Eos % (Auto) 4.0 % (0.0-4.3) 01/26/21 05:13 Baso % (Auto) 0.5 % (0.0-1.8) 01/26/21 05:13 Lymph # (Auto) 1.8 K/mm3 (1.2-5.4) 01/26/21 05:13 [place] # (Auto) 1.7 K/mm3 (0.0-0.8) H 01/26/21 05:13 Eos # (Auto) 0.5 K/mm3 (0.0-0.4) H 01/26/21 05:13 Baso # (Auto) 0.1 K/mm3 (0.0-0.1) 01/26/21 05:13 Seg Neutrophils % 66.2 % (40.0-70.0) 01/26/21 05:13 Seg Neutrophils # 7.9 K/mm3 (1.8-7.7) H 01/26/21 05:13 PT 14.3 Sec. (12.2-14.9) 01/25/21 06:02 INR 1.05 (0.87-1.13) 01/25/21 06:02 APTT 34.2 Sec. (24.2-36.6) 01/25/21 06:02 Thrombin Time 18.0 Sec. (15.1-19.6) 01/14/21 14:40 Sodium 136 mmol/L (137-145) L 01/27/21 07:34 Potassium 3.6 mmol/L (3.6-5.0) 01/27/21 07:34 Chloride 98.0 mmol/L (98-107) 01/27/21 07:34 Carbon Dioxide 27 mmol/L (22-30) 01/27/21 07:34 Anion Gap 15 mmol/L 01/27/21 07:34 BUN 7 mg/dL (9-20) L 01/27/21 07:34 Creatinine 0.5 mg/dL (0.8-1.3) L 01/27/21 07:34 Estimated GFR > 60 ml/min 01/27/21 07:34 BUN/Creatinine Ratio 14 % 01/27/21 07:34 Glucose 132 mg/dL (75-100) H 01/27/21 07:34 POC Glucose 134 mg/dL (70-105) H 02/03/21 16:42 Calcium 9.5 mg/dL (8.4-10.2) 01/27/21 07:34 Coronavirus (PCR) Negative (Negative) 01/31/21 Unknown Suarez/IV: Voiding Method Condom Catheter Active Medications - Current Medications Current Medications: Generic Name Dose Route Start Last Admin Trade Name Freq PRN Reason Stop Dose Admin Acetaminophen 650 mg 01/15/21 00:32 Acetaminophen 325 Mg Tab PO Q4H PRN Pain MILD(1-3)/Fever >100.5/LARIOS Albuterol 2.5 mg 01/15/21 00:32 Albuterol 2.5 Mg/3 Ml Nebu IH Q4HRT PRN Shortness Of Breath Amlodipine Besylate 10 mg 01/15/21 10:00 02/05/21 09:57 Amlodipine 10 Mg Tab PO 10 mg QDAY VANI Administration Lipase/Protease/Amylase 1 each 01/17/21 12:30 Lipase 10,500/Protease 25,000/Amylase 43,750 (Units) Dr Purcell FEEDTUBE PRN PRN For Clogged Feeding Tube Aspirin 325 mg 01/26/21 12:00 02/05/21 09:57 Aspirin 325 Mg Tab PO 325 mg QDAY VANI Administration Atorvastatin Calcium 40 mg 01/15/21 22:00 02/04/21 22:45 Atorvastatin 40 Mg Tab PO 40 mg QHS VANI Administration Clopidogrel Bisulfate 75 mg 01/26/21 14:00 02/05/21 09:57 Clopidogrel 75 Mg Tab PO 75 mg QDAY VANI Administration Heparin Sodium (Porcine) 5,000 unit 01/15/21 06:00 02/04/21 22:45 Heparin 5,000 Unit/1 Ml Vial SUB-Q 5,000 unit Q8HR VANI Administration Hydromorphone HCl 0.5 mg 01/15/21 00:32 01/19/21 03:11 Hydromorphone 1 Mg/1 Ml Inj IV 0.5 mg Q3H PRN Administration Pain , Severe (7-10) Lansoprazole 30 mg 01/26/21 12:00 02/05/21 09:57 Lansoprazole 30 Mg Solutab FEEDTUBE 30 mg QDAY VANI Administration Losartan Potassium 50 mg 01/28/21 10:00 02/05/21 09:57 Losartan 50 Mg Tab PO 50 mg QDAY VANI Administration Ondansetron HCl 4 mg 01/15/21 00:32 01/15/21 12:04 Ondansetron 4 Mg/2 Ml Inj IV 4 mg Q8H PRN Administration Nausea And Vomiting Simple Syrup 15 ml 01/17/21 12:30 Simple Syrup 15 Ml FEEDTUBE PRN PRN Hypoglycemia Simple Syrup 30 ml 01/17/21 12:30 Simple Syrup 15 Ml FEEDTUBE PRN PRN Hypoglycemia Sodium Bicarbonate 325 mg 01/17/21 12:30 Sodium Bicarbonate 325 Mg Tab FEEDTUBE PRN PRN For Clogged Feeding Tube Sodium Chloride 10 ml 01/15/21 10:00 02/05/21 09:57 Sodium Chloride 0.9% 10 Ml Flush Syringe IV 10 ml BID VANI Administration Sodium Chloride 10 ml 01/15/21 00:32 Sodium Chloride 0.9% 10 Ml Flush Syringe IV PRN PRN LINE FLUSH Nutrition/Malnutrition Assess - Dietary Evaluation Nutrition/Malnutrition Findings: Nutrition Notes Start: 01/17/21 12:10 Freq: Status: Active Protocol: Document 01/31/21 13:40 MK (Rec: 01/31/21 13:44 HIMANSHU [id number]) Nutrition Notes Initial or Follow up Reassessment Current Diagnosis Hypertension,Stroke, Hyperlipidemia Other Pertinent Diagnosis Dysarthria, (R) sided weakness Current Diet [facility] soft Labs/Tests reviewed Pertinent Medications reviewed Height 5 ft 7 in Weight 107 kg [place] Body Weight (kg) 67.27 BMI 36.9 Weight Status Obese Subjective/Other Information RN states pt does very well with eating. He ate 75% of breakfast this AM. Percent of energy/protein needs met: 78%/100% Burn Absent Trauma Absent Current % PO Good (75-100%) Minimum of two criteria No #1 Nutrition Diagnosis Inadequate oral intake As Evidenced by Signs and Symptoms pt meeting 87%/100% of kcal/ protein needs Diagnosis Progress(for reassessment Resolved documentation) Is patient on ventilator? No Is Patient Ambulatory and/or Out of Bed No REE-([place]-confined to bed) 2252.160 Kcal/Kg value to use for calculation 16 Approximate Energy Requirements Using 1712 kcal/Kg Calculation Used for Recommendations Kcal/kg Additional Notes Pro needs 0.8-1g/kg adjBW: 70- 88g/day Fluid needs 1ml/kcal Nutrition Intervention Nutrition Support: d/c Goal #1 Continue to meet at least 75% energy and pro needs Revisit per MD consult or patient Sign Off request:
[2021-02-05] MEDS: ACETAMINOPHEN 325 MG TAB PO PRN (21:40)
[2021-02-06] MEDS: HEPARIN 5,000 UNIT/1 ML VIAL SUB-Q SCH ×3 (06:13→21:24)
[2021-02-06] MEDS: ASPIRIN 325 MG TAB PO SCH (09:19)
[2021-02-06] MEDS: amLODIPine 10 MG TAB PO SCH (09:20)
[2021-02-06] MEDS: LANSOPRAZOLE 30 MG SOLUTAB FEEDTUBE SCH (09:20)
[2021-02-06] MEDS: CLOPIDOGREL 75 MG TAB PO SCH (09:20)
[2021-02-06] MEDS: LOSARTAN 50 MG TAB PO SCH (09:20)
--- NOTE | 2021-02-06 11:36 | Progress Note ---
Assessment and Plan Assessment and plan: 55-year-old male with past medical history of hypertension, hyperlipidemia and previous stroke w/o any residual weakness was brought to the hospital because of right-sided weakness and dysarthria. Family stated the patient has been dragging his right lower extremity while walking and Overnight the symptoms apparently worsened and EMS was called. Patient was admitted with stroke protocol. -- Acute CVA (cerebral vascular accident) Admitted the patient to the medical telemetry. Aspirin 81 mg p.o. daily. Plavix 75 mg p.o. daily. Lipitor 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 is not a candidate for thrombectomy not TPA -CTA neck no significant abnormality -2d echo on july with preserved EF and another study ordered for PFO -MRI of the brain showed left-sided subcortical infarct. consulted PT OT any speech evaluation. We also consulted neurology Patient is nonverbal with dysphagia: failed speech eval, continue tube feeding and IV fluids S/p PEG tube placement by GI Awaiting placement. -- HTN (hypertension), uncontrolled Amlodipine 10 mg p.o. daily. Labetalol 10 mg IV every 6 hours as needed. we will monitor the blood pressure closely Patient is getting medications with tube feeding. We will increase losartan to 50 mg daily -- Hyperlipidemia Lipitor 40 mg daily Goal LDL less than 70. -- Dysarthria/dysphagia Tolerating PEG well awaiting placement. cont TF with PEG tube --Right-sided hemiparesis due to CVA Continue PT OT -- DVT prophylaxis Heparin 5000 units subcu every 8 hours for DVT prophylaxis. Protonix 40 mg p.o. daily for GI prophylaxis. Patient is a full code 01/16/21 Patient presented with right sided weakness , slurred speech. CT shows acute stroke. MRI ordered, pending. On Aspirin, Plavix, Lipitor patient was seen and evluated by Neurology PT/OT/Speech consulted 01/17/21 Patient presented with right sided weakness , slurred speech. CT shows acute ischemic stroke. MRI ordered, pending. Continue Aspirin,Plavix. Lipitor Keep NPO as per Speech therefore will start tube feeding with Dobhoff PT/OT to see Patient was evaluated by Dr. Jones, Neurology Will likely need acute rehab placement. 01/18/21; patient remains confused with right-sided weakness, unable to participate in swallow eval. continue history, continue TF 01/19: Patient continues to have right-sided hemiparesis, failed swallow eval, intermittently agitated with persistent confusion. Continue restraints. Continue tube feeding diet, adjust BP meds as needed, follow BMP. 01/20/21: Patient tolerating tube feeding with Dobbhoff. Remains restrained. U nable to move right upper and lower extremities, along with dysphagia and confusion. Waiting on repeat speech eval and PT eval. 01/21/21: Unable to do modified barium swallow study today as patient was not cooperative. Speech recommended to continue tube feeding, patient might need PEG tube placement -we will consult GI. Continue PT OT. 01/22/21: Continue supportive care, wait for repeat speech eval. Continue PT OT. Pending GI recommendation for PEG placement. 01/23/21: Clinically stable, remain restraint and confused nonverbal. Unable to participate in the swallow eval, need PEG tube. Pending GI recommendation. Continue tube feeding for now with Dobbhoff, PT OT eval 01/24/21: Continue tube feeding with Dobbhoff, continue PT OT as scheduled. Monitor vitals and BMP. Plan for PEG tube placement tomorrow. Discussed with mother at the bedside and updated her with all clinical details. 01/25/21: s/p Peg placement today. Patient tolerated procedure well, continue IV fluid, wait for tube feeding order once cleared by GI: Consulted dietary. 01/26/21: initiated TF with PEG today, follow CBC/BMP. CM working on placement. cont supportive care 01/27/2021. Patient tolerating tube feed well with PEG. Follow-up CMP BMP unremarkable. Awaiting placement. 01/28/2021. Patient mumbling. Eyes follow you attempt to make needs known. Follow-up labs unremarkable. Still awaiting placement. 01/28/2021 remains encephalopathic no new concerns overnight. Hospital course unremarkable awaiting placement half-way facility 01/30: Patient is on tube feeds and tolerating we will discontinue IV fluids at this time. Patient is awaiting placement to half-way facility. No new complaint per nursing staff 01/31: covid ordered for placement. Increased statin to 80mg for 30 days and can be changed back to 40 as patint had a stroke while on statin. Also now plavix has been added as patient was on aspirin. Patient was denied inpatient rehab awaiting for SNF. 02/01: Patient seen and examined clinically stable at this time. Awaiting discharge planning to SNF. 02/02: Patient seen and examined, no new distress, tolerating diet, awaiting SNF placement. 02/03: Patient remains stable, following commands, eating with assistance, no new complaints. 02/04: Patient seen and examined this morning resting comfortably. Still with right-sided palsy otherwise tolerating diet this morning. Still awaiting placement 02/05: Continue supportive care awaiting placement. Aspiration precautions. Plan discussed with the patient and nurse. 02/06: Patient seen and examined no change continue to manage his condition while awaiting placement. Tolerating diet. History Interval history: Patient seen and examined, NO NEW COMPLAINT Hospitalist Physical - Physical exam Narrative exam: General appearance: Present: no acute distress, well-nourished - EENT Eyes: PERRL, EOM intact ENT: hearing intact, clear oral mucosa Ears: bilateral: normal - Neck Neck: supple, normal ROM - Respiratory Respiratory effort: normal Respiratory: bilateral: CTA - Breasts Breasts: normal - Cardiovascular Rhythm: regular Heart Sounds: Present: S1 & S2. Absent: gallop, rub Extremities: pulses intact, No edema, normal color, Full ROM - Gastrointestinal General gastrointestinal: Present: soft, non-tender, non-distended, normal bowel sounds - Genitourinary Male genitourinary: normal - Integumentary Integumentary: clear, warm, dry - Musculoskeletal Musculoskeletal: left and right sided weakness - Neurologic Neurologic: moves left extremities, but still weak on the right sided, expres sive aphasia, - Psychiatric Psychiatric: flat - Constitutional Vitals: Temp Pulse Resp BP Pulse Ox 97.8 F 85 18 127/95 96 02/06/21 08:31 02/06/21 08:31 02/06/21 08:31 02/06/21 08:31 02/06/21 08:31 General appearance: Present: no acute distress, well-nourished Results - Labs CBC & Chem 7: 01/27/21 07:34 01/27/21 07:34 Labs: Laboratory Last Values WBC 10.5 K/mm3 (4.5-11.0) 01/27/21 07:34 RBC 4.29 M/mm3 (3.65-5.03) 01/27/21 07:34 Hgb 13.6 gm/dl (11.8-15.2) 01/27/21 07:34 Hct 40.3 % (35.5-45.6) 01/27/21 07:34 MCV 94 fl (84-94) 01/27/21 07:34 MCH 32 pg (28-32) 01/27/21 07:34 MCHC 34 % (32-34) 01/27/21 07:34 RDW 13.2 % (13.2-15.2) 01/27/21 07:34 Plt Count 251 K/mm3 (140-440) 01/27/21 07:34 Lymph % (Auto) 15.4 % (13.4-35.0) 01/26/21 05:13 [place] % (Auto) 13.9 % (0.0-7.3) H 01/26/21 05:13 Eos % (Auto) 4.0 % (0.0-4.3) 01/26/21 05:13 Baso % (Auto) 0.5 % (0.0-1.8) 01/26/21 05:13 Lymph # (Auto) 1.8 K/mm3 (1.2-5.4) 01/26/21 05:13 [place] # (Auto) 1.7 K/mm3 (0.0-0.8) H 01/26/21 05:13 Eos # (Auto) 0.5 K/mm3 (0.0-0.4) H 01/26/21 05:13 Baso # (Auto) 0.1 K/mm3 (0.0-0.1) 01/26/21 05:13 Seg Neutrophils % 66.2 % (40.0-70.0) 01/26/21 05:13 Seg Neutrophils # 7.9 K/mm3 (1.8-7.7) H 01/26/21 05:13 PT 14.3 Sec. (12.2-14.9) 01/25/21 06:02 INR 1.05 (0.87-1.13) 01/25/21 06:02 APTT 34.2 Sec. (24.2-36.6) 01/25/21 06:02 Thrombin Time 18.0 Sec. (15.1-19.6) 01/14/21 14:40 Sodium 136 mmol/L (137-145) L 01/27/21 07:34 Potassium 3.6 mmol/L (3.6-5.0) 01/27/21 07:34 Chloride 98.0 mmol/L (98-107) 01/27/21 07:34 Carbon Dioxide 27 mmol/L (22-30) 01/27/21 07:34 Anion Gap 15 mmol/L 01/27/21 07:34 BUN 7 mg/dL (9-20) L 01/27/21 07:34 Creatinine 0.5 mg/dL (0.8-1.3) L 01/27/21 07:34 Estimated GFR > 60 ml/min 01/27/21 07:34 BUN/Creatinine Ratio 14 % 01/27/21 07:34 Glucose 132 mg/dL (75-100) H 01/27/21 07:34 POC Glucose 134 mg/dL (70-105) H 02/03/21 16:42 Calcium 9.5 mg/dL (8.4-10.2) 01/27/21 07:34 Coronavirus (PCR) Negative (Negative) 01/31/21 Unknown Suarez/IV: Voiding Method Condom Catheter Active Medications - Current Medications Current Medications: Generic Name Dose Route Start Last Admin Trade Name Freq PRN Reason Stop Dose Admin Acetaminophen 650 mg 01/15/21 00:32 02/05/21 21:40 Acetaminophen 325 Mg Tab PO 650 mg Q4H PRN Administration Pain MILD(1-3)/Fever >100.5/LARIOS Albuterol 2.5 mg 01/15/21 00:32 Albuterol 2.5 Mg/3 Ml Nebu IH Q4HRT PRN Shortness Of Breath Amlodipine Besylate 10 mg 01/15/21 10:00 02/06/21 09:20 Amlodipine 10 Mg Tab PO 10 mg QDAY VANI Administration Lipase/Protease/Amylase 1 each 01/17/21 12:30 Lipase 10,500/Protease 25,000/Amylase 43,750 (Units) Dr Purcell FEEDTUBE PRN PRN For Clogged Feeding Tube Aspirin 325 mg 01/26/21 12:00 02/06/21 09:19 Aspirin 325 Mg Tab PO 325 mg QDAY VANI Administration Atorvastatin Calcium 40 mg 01/15/21 22:00 02/05/21 21:40 Atorvastatin 40 Mg Tab PO 40 mg QHS VANI Administration Clopidogrel Bisulfate 75 mg 01/26/21 14:00 02/06/21 09:20 Clopidogrel 75 Mg Tab PO 75 mg QDAY VANI Administration Heparin Sodium (Porcine) 5,000 unit 01/15/21 06:00 02/06/21 06:13 Heparin 5,000 Unit/1 Ml Vial SUB-Q 5,000 unit Q8HR VANI Administration Hydromorphone HCl 0.5 mg 01/15/21 00:32 01/19/21 03:11 Hydromorphone 1 Mg/1 Ml Inj IV 0.5 mg Q3H PRN Administration Pain , Severe (7-10) Lansoprazole 30 mg 01/26/21 12:00 02/06/21 09:20 Lansoprazole 30 Mg Solutab FEEDTUBE 30 mg QDAY VANI Administration Losartan Potassium 50 mg 01/28/21 10:00 02/06/21 09:20 Losartan 50 Mg Tab PO 50 mg QDAY VANI Administration Ondansetron HCl 4 mg 01/15/21 00:32 01/15/21 12:04 Ondansetron 4 Mg/2 Ml Inj IV 4 mg Q8H PRN Administration Nausea And Vomiting Simple Syrup 15 ml 01/17/21 12:30 Simple Syrup 15 Ml FEEDTUBE PRN PRN Hypoglycemia Simple Syrup 30 ml 01/17/21 12:30 Simple Syrup 15 Ml FEEDTUBE PRN PRN Hypoglycemia Sodium Bicarbonate 325 mg 01/17/21 12:30 Sodium Bicarbonate 325 Mg Tab FEEDTUBE PRN PRN For Clogged Feeding Tube Sodium Chloride 10 ml 01/15/21 10:00 02/06/21 09:20 Sodium Chloride 0.9% 10 Ml Flush Syringe IV 10 ml BID VANI Administration Sodium Chloride 10 ml 01/15/21 00:32 Sodium Chloride 0.9% 10 Ml Flush Syringe IV PRN PRN LINE FLUSH Nutrition/Malnutrition Assess - Dietary Evaluation Nutrition/Malnutrition Findings: Nutrition Notes Start: 01/17/21 12:10 Freq: Status: Active Protocol: Document 01/31/21 13:40 HIMANSHU (Rec: 01/31/21 13:44 HIMANSHU [id number]) Nutrition Notes Initial or Follow up Reassessment Current Diagnosis Hypertension,Stroke, Hyperlipidemia Other Pertinent Diagnosis Dysarthria, (R) sided weakness Current Diet [facility] soft Labs/Tests reviewed Pertinent Medications reviewed Height 5 ft 7 in Weight 107 kg [place] Body Weight (kg) 67.27 BMI 36.9 Weight Status Obese Subjective/Other Information RN states pt does very well with eating. He ate 75% of breakfast this AM. Percent of energy/protein needs met: 78%/100% Burn Absent Trauma Absent Current % PO Good (75-100%) Minimum of two criteria No #1 Nutrition Diagnosis Inadequate oral intake As Evidenced by Signs and Symptoms pt meeting 87%/100% of kcal/ protein needs Diagnosis Progress(for reassessment Resolved documentation) Is patient on ventilator? No Is Patient Ambulatory and/or Out of Bed No REE-([place]-confined to bed) 2252.160 Kcal/Kg value to use for calculation 16 Approximate Energy Requirements Using 1712 kcal/Kg Calculation Used for Recommendations Kcal/kg Additional Notes Pro needs 0.8-1g/kg adjBW: 70- 88g/day Fluid needs 1ml/kcal Nutrition Intervention Nutrition Support: d/c Goal #1 Continue to meet at least 75% energy and pro needs Revisit per MD consult or patient Sign Off request:
[2021-02-06] MEDS: ACETAMINOPHEN 325 MG TAB PO PRN (21:23)
[2021-02-07] MEDS: HEPARIN 5,000 UNIT/1 ML VIAL SUB-Q SCH ×3 (05:52→21:49)
[2021-02-07] MEDS: CLOPIDOGREL 75 MG TAB PO SCH (09:59)
[2021-02-07] MEDS: amLODIPine 10 MG TAB PO SCH (09:59)
[2021-02-07] MEDS: LANSOPRAZOLE 30 MG SOLUTAB FEEDTUBE SCH (09:59)
[2021-02-07] MEDS: LOSARTAN 50 MG TAB PO SCH (09:59)
[2021-02-07] MEDS: ASPIRIN 325 MG TAB PO SCH (09:59)
[2021-02-07] MEDS: ACETAMINOPHEN 325 MG TAB PO PRN (21:48)
[2021-02-08] MEDS: HEPARIN 5,000 UNIT/1 ML VIAL SUB-Q SCH ×2 (06:11→21:52)
[2021-02-08] MEDS: LOSARTAN 50 MG TAB PO SCH (09:41)
[2021-02-08] MEDS: CLOPIDOGREL 75 MG TAB PO SCH (09:41)
[2021-02-08] MEDS: ASPIRIN 325 MG TAB PO SCH (09:41)
[2021-02-08] MEDS: LANSOPRAZOLE 30 MG SOLUTAB FEEDTUBE SCH (09:41)
[2021-02-08] MEDS: amLODIPine 10 MG TAB PO SCH (09:42)
--- NOTE | 2021-02-08 14:34 | Progress Note ---
Assessment and Plan Assessment and plan: 55-year-old male with past medical history of hypertension, hyperlipidemia and previous stroke w/o any residual weakness was brought to the hospital because of right-sided weakness and dysarthria. Family stated the patient has been dragging his right lower extremity while walking and Overnight the symptoms apparently worsened and EMS was called. Patient was admitted with stroke protocol. -- Acute CVA (cerebral vascular accident) Admitted the patient to the medical telemetry. Aspirin 81 mg p.o. daily. Plavix 75 mg p.o. daily. Lipitor 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 is not a candidate for thrombectomy not TPA -CTA neck no significant abnormality -2d echo on july with preserved EF and another study ordered for PFO -MRI of the brain showed left-sided subcortical infarct. consulted PT OT any speech evaluation. We also consulted neurology Patient is nonverbal with dysphagia: failed speech eval, continue tube feeding and IV fluids S/p PEG tube placement by GI Awaiting placement. -- HTN (hypertension), uncontrolled Amlodipine 10 mg p.o. daily. Labetalol 10 mg IV every 6 hours as needed. we will monitor the blood pressure closely Patient is getting medications with tube feeding. We will increase losartan to 50 mg daily -- Hyperlipidemia Lipitor 40 mg daily Goal LDL less than 70. -- Dysarthria/dysphagia Tolerating PEG well awaiting placement. cont TF with PEG tube --Right-sided hemiparesis due to CVA Continue PT OT -- DVT prophylaxis Heparin 5000 units subcu every 8 hours for DVT prophylaxis. Protonix 40 mg p.o. daily for GI prophylaxis. Patient is a full code 01/16/21 Patient presented with right sided weakness , slurred speech. CT shows acute stroke. MRI ordered, pending. On Aspirin, Plavix, Lipitor patient was seen and evluated by Neurology PT/OT/Speech consulted 01/17/21 Patient presented with right sided weakness , slurred speech. CT shows acute ischemic stroke. MRI ordered, pending. Continue Aspirin,Plavix. Lipitor Keep NPO as per Speech therefore will start tube feeding with Dobhoff PT/OT to see Patient was evaluated by Dr. Jones, Neurology Will likely need acute rehab placement. 01/18/21; patient remains confused with right-sided weakness, unable to participate in swallow eval. continue history, continue TF 01/19: Patient continues to have right-sided hemiparesis, failed swallow eval, intermittently agitated with persistent confusion. Continue restraints. Continue tube feeding diet, adjust BP meds as needed, follow BMP. 01/20/21: Patient tolerating tube feeding with Dobbhoff. Remains restrained. Unable to move right upper and lower extremities, along with dysphagia and confusion. Waiting on repeat speech eval and PT eval. 01/21/21: Unable to do modified barium swallow study today as patient was not cooperative. Speech recommended to continue tube feeding, patient might need PEG tube placement -we will consult GI. Continue PT OT. 01/22/21: Continue supportive care, wait for repeat speech eval. Continue PT OT. Pending GI recommendation for PEG placement. 01/23/21: Clinically stable, remain restraint and confused nonverbal. Unable to participate in the swallow eval, need PEG tube. Pending GI recommendation. Continue tube feeding for now with Dobbhoff, PT OT eval 01/24/21: Continue tube feeding with Dobbhoff, continue PT OT as scheduled. Monitor vitals and BMP. Plan for PEG tube placement tomorrow. Discussed with mother at the bedside and updated her with all clinical details. 01/25/21: s/p Peg placement today. Patient tolerated procedure well, continue IV fluid, wait for tube feeding order once cleared by GI: Consulted dietary. 01/26/21: initiated TF with PEG today, follow CBC/BMP. CM working on placement. cont supportive care 01/27/2021. Patient tolerating tube feed well with PEG. Follow-up CMP BMP unremarkable. Awaiting placement. 01/28/2021. Patient mumbling. Eyes follow you attempt to make needs known. Follow-up labs unremarkable. Still awaiting placement. 01/28/2021 remains encephalopathic no new concerns overnight. Hospital course unremarkable awaiting placement [facility] 01/30: Patient is on tube feeds and tolerating we will discontinue IV fluids at this time. Patient is awaiting placement to [facility]. No new complaint per nursing staff 01/31: covid ordered for placement. Increased statin to 80mg for 30 days and can be changed back to 40 as patint had a stroke while on statin. Also now plavix has been added as patient was on aspirin. Patient was denied inpatient rehab awaiting for SNF. 02/01: Patient seen and examined clinically stable at this time. Awaiting discharge planning to SNF. 02/02: Patient seen and examined, no new distress, tolerating diet, awaiting SNF placement. 02/03: Patient remains stable, following commands, eating with assistance, no new complaints. 02/04: Patient seen and examined this morning resting comfortably. Still with right-sided palsy otherwise tolerating diet this morning. Still awaiting placement 02/05: Continue supportive care awaiting placement. Aspiration precautions. Plan discussed with the patient and nurse. 02/06: Patient seen and examined no change continue to manage his condition while awaiting placement. Tolerating diet. 02/08; patient was seen and examined this morning no change in his condition. Patient is awaiting placement. Discussed with case management and he told me he will go to [facility]. History Interval history: Patient was seen and evaluated this morning, patient was dysarthric, confused Hospitalist Physical - Physical exam Narrative exam: Not in cardiopulmonary distress. The patient is obese. Vital signs as documented. Head exam is unremarkable. No scleral icterus . Neck is without jugular venous distension, thyromegaly, or carotid bruits. Lungs are clear to auscultation. Cardiac exam reveals regular rate and Rhythm. Abdominal exam reveals normal bowel sounds, nontender, no organomegaly. Extremities are nonedematous and both femoral and pedal pulses are normal. 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, confused, right-sided weakness - Constitutional Vitals: Temp Pulse Resp BP Pulse Ox 98.3 F 94 H 20 151/84 93 02/08/21 12:11 02/08/21 12:11 02/08/21 12:11 02/08/21 12:11 02/08/21 12:11 General appearance: Present: no acute distress, well-nourished Results - Labs CBC & Chem 7: 01/27/21 07:34 01/27/21 07:34 Labs: Laboratory Last Values WBC 10.5 K/mm3 (4.5-11.0) 01/27/21 07:34 RBC 4.29 M/mm3 (3.65-5.03) 01/27/21 07:34 Hgb 13.6 gm/dl (11.8-15.2) 01/27/21 07:34 Hct 40.3 % (35.5-45.6) 01/27/21 07:34 MCV 94 fl (84-94) 01/27/21 07:34 MCH 32 pg (28-32) 01/27/21 07:34 MCHC 34 % (32-34) 01/27/21 07:34 RDW 13.2 % (13.2-15.2) 01/27/21 07:34 Plt Count 251 K/mm3 (140-440) 01/27/21 07:34 Lymph % (Auto) 15.4 % (13.4-35.0) 01/26/21 05:13 Anson % (Auto) 13.9 % (0.0-7.3) H 01/26/21 05:13 Eos % (Auto) 4.0 % (0.0-4.3) 01/26/21 05:13 Baso % (Auto) 0.5 % (0.0-1.8) 01/26/21 05:13 Lymph # (Auto) 1.8 K/mm3 (1.2-5.4) 01/26/21 05:13 Anson # (Auto) 1.7 K/mm3 (0.0-0.8) H 01/26/21 05:13 Eos # (Auto) 0.5 K/mm3 (0.0-0.4) H 01/26/21 05:13 Baso # (Auto) 0.1 K/mm3 (0.0-0.1) 01/26/21 05:13 Seg Neutrophils % 66.2 % (40.0-70.0) 01/26/21 05:13 Seg Neutrophils # 7.9 K/mm3 (1.8-7.7) H 01/26/21 05:13 PT 14.3 Sec. (12.2-14.9) 01/25/21 06:02 INR 1.05 (0.87-1.13) 01/25/21 06:02 APTT 34.2 Sec. (24.2-36.6) 01/25/21 06:02 Thrombin Time 18.0 Sec. (15.1-19.6) 01/14/21 14:40 Sodium 136 mmol/L (137-145) L 01/27/21 07:34 Potassium 3.6 mmol/L (3.6-5.0) 01/27/21 07:34 Chloride 98.0 mmol/L (98-107) 01/27/21 07:34 Carbon Dioxide 27 mmol/L (22-30) 01/27/21 07:34 Anion Gap 15 mmol/L 01/27/21 07:34 BUN 7 mg/dL (9-20) L 01/27/21 07:34 Creatinine 0.5 mg/dL (0.8-1.3) L 01/27/21 07:34 Estimated GFR > 60 ml/min 01/27/21 07:34 BUN/Creatinine Ratio 14 % 01/27/21 07:34 Glucose 132 mg/dL (75-100) H 01/27/21 07:34 POC Glucose 134 mg/dL (70-105) H 02/03/21 16:42 Calcium 9.5 mg/dL (8.4-10.2) 01/27/21 07:34 Coronavirus (PCR) Negative (Negative) 01/31/21 Unknown Suarez/IV: Voiding Method Condom Catheter Active Medications - Current Medications Current Medications: Generic Name Dose Route Start Last Admin Trade Name Freq PRN Reason Stop Dose Admin Acetaminophen 650 mg 01/15/21 00:32 02/07/21 21:48 Acetaminophen 325 Mg Tab PO 650 mg Q4H PRN Administration Pain MILD(1-3)/Fever >100.5/LARIOS Albuterol 2.5 mg 01/15/21 00:32 Albuterol 2.5 Mg/3 Ml Nebu IH Q4HRT PRN Shortness Of Breath Amlodipine Besylate 10 mg 01/15/21 10:00 02/08/21 09:42 Amlodipine 10 Mg Tab PO Not Given QDAY [facility] Lipase/Protease/Amylase 1 each 01/17/21 12:30 Lipase 10,500/Protease 25,000/Amylase 43,750 (Units) Dr Purcell FEEDTUBE PRN PRN For Clogged Feeding Tube Aspirin 325 mg 01/26/21 12:00 02/08/21 09:41 Aspirin 325 Mg Tab PO 325 mg QDAY VANI Administration Atorvastatin Calcium 40 mg 01/15/21 22:00 02/07/21 21:49 Atorvastatin 40 Mg Tab PO 40 mg QHS VANI Administration Clopidogrel Bisulfate 75 mg 01/26/21 14:00 02/08/21 09:41 Clopidogrel 75 Mg Tab PO 75 mg QDAY VANI Administration Heparin Sodium (Porcine) 5,000 unit 01/15/21 06:00 02/08/21 06:11 Heparin 5,000 Unit/1 Ml Vial SUB-Q 5,000 unit Q8HR VANI Administration Hydromorphone HCl 0.5 mg 01/15/21 00:32 01/19/21 03:11 Hydromorphone 1 Mg/1 Ml Inj IV 0.5 mg Q3H PRN Administration Pain , Severe (7-10) Lansoprazole 30 mg 01/26/21 12:00 02/08/21 09:41 Lansoprazole 30 Mg Solutab FEEDTUBE 30 mg QDAY VANI Administration Losartan Potassium 50 mg 01/28/21 10:00 02/08/21 09:41 Losartan 50 Mg Tab PO Not Given QDAY VANI Ondansetron HCl 4 mg 01/15/21 00:32 01/15/21 12:04 Ondansetron 4 Mg/2 Ml Inj IV 4 mg Q8H PRN Administration Nausea And Vomiting Simple Syrup 15 ml 01/17/21 12:30 Simple Syrup 15 Ml FEEDTUBE PRN PRN Hypoglycemia Simple Syrup 30 ml 01/17/21 12:30 Simple Syrup 15 Ml FEEDTUBE PRN PRN Hypoglycemia Sodium Bicarbonate 325 mg 01/17/21 12:30 Sodium Bicarbonate 325 Mg Tab FEEDTUBE PRN PRN For Clogged Feeding Tube Sodium Chloride 10 ml 01/15/21 10:00 02/08/21 09:41 Sodium Chloride 0.9% 10 Ml Flush Syringe IV 10 ml BID VANI Administration Sodium Chloride 10 ml 01/15/21 00:32 Sodium Chloride 0.9% 10 Ml Flush Syringe IV PRN PRN LINE FLUSH Nutrition/Malnutrition Assess - Dietary Evaluation Nutrition/Malnutrition Findings: Nutrition Notes Start: 01/17/21 12:10 Freq: Status: Active Protocol: Document 01/31/21 13:40 (Rec: 01/31/21 13:44 HIMANSHU [id number]) Nutrition Notes Initial or Follow up Reassessment Current Diagnosis Hypertension,Stroke, Hyperlipidemia Other Pertinent Diagnosis Dysarthria, (R) sided weakness Current Diet mech soft Labs/Tests reviewed Pertinent Medications reviewed Height 5 ft 7 in Weight 107 kg [place] Body Weight (kg) 67.27 BMI 36.9 Weight Status Obese Subjective/Other Information RN states pt does very well with eating. He ate 75% of breakfast this AM. Percent of energy/protein needs met: 78%/100% Burn Absent Trauma Absent Current % PO Good (75-100%) Minimum of two criteria No #1 Nutrition Diagnosis Inadequate oral intake As Evidenced by Signs and Symptoms pt meeting 87%/100% of kcal/ protein needs Diagnosis Progress(for reassessment Resolved documentation) Is patient on ventilator? No Is Patient Ambulatory and/or Out of Bed No REE-([place]-confined to bed) 2252.160 Kcal/Kg value to use for calculation 16 Approximate Energy Requirements Using 1712 kcal/Kg Calculation Used for Recommendations Kcal/kg Additional Notes Pro needs 0.8-1g/kg adjBW: 70- 88g/day Fluid needs 1ml/kcal Nutrition Intervention Nutrition Support: d/c Goal #1 Continue to meet at least 75% energy and pro needs Revisit per MD consult or patient Sign Off request:
[2021-02-09 05:24] LABS: Chol/HDL Ratio 2.84 %
[2021-02-09] MEDS: HEPARIN 5,000 UNIT/1 ML VIAL SUB-Q SCH (05:25)
--- NOTE | 2021-02-09 09:09 | Discharge Summary ---
Providers - Providers Date of Admission: 01/15/21 00:32 Date of discharge: 02/09/21 Attending physician: ORTIZ METZ MD 01/15/21 Consult to Physician [CONS] Routine Comment: Consulting Provider: TAMI AMAYA Physician Instructions: Reason For Exam: cva 01/15/21 00:32 Occupational Therapy Evaluate and Treat [CONS] Routine Comment: Reason For Exam: Neuro deficits Physical Therapy Evaluation and Treat [CONS] Routine Comment: Reason For Exam: Neuro deficits 01/16/21 14:39 Speech Therapy Evaluation and Treat [CONS] Urgent Reason For Exam: please eval swallowing thanks 01/17/21 08:20 Consult to Dietitian/Nutrition [CONS] Routine Physician Instructions: Reason For Exam: Reason for Consult: Write/Manage Tube Feeding 01/17/21 13:03 Physical Therapy Evaluation and Treat [CONS] Routine Comment: s/p CVA Reason For Exam: PT eval and treat for abnormal gait 01/17/21 13:04 Occupational Therapy Evaluate and Treat [CONS] Routine Comment: s/p CVA Reason For Exam: OT to eval and treat 01/20/21 09:43 Speech Therapy Evaluation and Treat [CONS] Routine Reason For Exam: aspiration 01/21/21 14:11 Consult to Physician [CONS] Routine Comment: Consulting Provider: LINCOLN MIRAMONTES Physician Instructions: Reason For Exam: PEG placement 01/25/21 13:55 Consult to Dietitian/Nutrition [CONS] Routine Physician Instructions: Reason For Exam: Reason for Consult: post-peg 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 Family stated the patient has been dragging his right lower extremity while walking and Overnight the symptoms apparently worsened and EMS was called. Patient was admitted with stroke protocol. -- Acute CVA (cerebral vascular accident) Admitted the patient to the medical telemetry. Aspirin 81 mg p.o. daily. Plavix 75 mg p.o. daily. Lipitor 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 is not a candidate for thrombectomy not TPA -CTA neck no significant abnormality -2d echo on july with preserved EF and another study ordered for PFO -MRI of the brain showed left-sided subcortical infarct. consulted PT OT any speech evaluation. We also consulted neurology Patient is nonverbal with dysphagia: failed speech eval, continue tube feeding and IV fluids S/p PEG tube placement by GI Awaiting placement. -- HTN (hypertension), uncontrolled Amlodipine 10 mg p.o. daily. Labetalol 10 mg IV every 6 hours as needed. we will monitor the blood pressure closely Patient is getting medications with tube feeding. We will increase losartan to 50 mg daily -- Hyperlipidemia Lipitor 40 mg daily Goal LDL less than 70. -- Dysarthria/dysphagia Tolerating PEG well awaiting placement. cont TF with PEG tube --Right-sided hemiparesis due to CVA Continue PT OT -- DVT prophylaxis Heparin 5000 units subcu every 8 hours for DVT prophylaxis. Protonix 40 mg p.o. daily for GI prophylaxis. Patient is a full code 01/16/21 Patient presented with right sided weakness , slurred speech. CT shows acute stroke. MRI ordered, pending. On Aspirin, Plavix, Lipitor patient was seen and evluated by Neurology PT/OT/Speech consulted 01/17/21 Patient presented with right sided weakness , slurred speech. CT shows acute ischemic stroke. MRI ordered, pending. Continue Aspirin,Plavix. Lipitor Keep NPO as per Speech therefore will start tube feeding with Dobhoff PT/OT to see Patient was evaluated by Dr. Amaya, Neurology Will likely need acute rehab placement. 01/18/21; patient remains confused with right-sided weakness, unable to participate in swallow eval. continue history, continue TF 01/19: Patient continues to have right-sided hemiparesis, failed swallow eval, intermittently agitated with persistent confusion. Continue restraints. Continue tube feeding diet, adjust BP meds as needed, follow BMP. 01/20/21: Patient tolerating tube feeding with Dobbhoff. Remains restrained. Unable to move right upper and lower extremities, along with dysphagia and confusion. Waiting on repeat speech eval and PT eval. 01/21/21: Unable to do modified barium swallow study today as patient was not cooperative. Speech recommended to continue tube feeding, patient might need PEG tube placement -we will consult GI. Continue PT OT. 01/22/21: Continue supportive care, wait for repeat speech eval. Continue PT OT. Pending GI recommendation for PEG placement. 01/23/21: Clinically stable, remain restraint and confused nonverbal. Unable to participate in the swallow eval, need PEG tube. Pending GI recommendation. Continue tube feeding for now with Do[place], PT OT eval 01/24/21: Continue tube feeding with Dobbhoff, continue PT OT as scheduled. Monitor vitals and BMP. Plan for PEG tube placement tomorrow. Discussed with mother at the bedside and updated her with all clinical details. 01/25/21: s/p Peg placement today. Patient tolerated procedure well, continue IV fluid, wait for tube feeding order once cleared by GI: Consulted dietary. 01/26/21: initiated TF with PEG today, follow CBC/BMP. CM working on placement. cont supportive care 01/27/2021. Patient tolerating tube feed well with PEG. Follow-up CMP BMP unremarkable. Awaiting placement. 01/28/2021. Patient mumbling. Eyes follow you attempt to make needs known. Follow-up labs unremarkable. Still awaiting placement. 01/28/2021 remains encephalopathic no new concerns overnight. Hospital course unremarkable awaiting placement senior living facility 01/30: Patient is on tube feeds and tolerating we will discontinue IV fluids at this time. Patient is awaiting placement to senior living facility. No new complaint per nursing staff 01/31: covid ordered for placement. Increased statin to 80mg for 30 days and can be changed back to 40 as patint had a stroke while on statin. Also now plavix has been added as patient was on aspirin. Patient was denied inpatient rehab awaiting for SNF. 3: Patient seen and examined clinically stable at this time. Awaiting discharge planning to SNF. 4: Patient seen and examined, no new distress, tolerating diet, awaiting SNF placement. 02/03: Patient remains stable, following commands, eating with assistance, no new complaints. 6: Patient seen and examined this morning resting comfortably. Still with right-sided palsy otherwise tolerating diet this morning. Still awaiting placement 02/05: Continue supportive care awaiting placement. Aspiration precautions. Plan discussed with the patient and nurse. 02/06: Patient seen and examined no change continue to manage his condition while awaiting placement. Tolerating diet. 02/07: Patient continues to show remarkbale improvement, awaiting placement Disposition: [id number]/[place]-03 SNF W [facility] CERT Final Discharge Diagnosis (Prints w/discharge instructions): Acute CVA. Right- sided hemiparesis. Hypertension. Hyperlipidemia. Dysarthria. Dysphagia. Status post PEG tube placement Time spent for discharge: 45-minutes - Discharge Diagnoses (1) CVA (cerebral vascular accident) Status: Acute (2) Dysarthria Status: Acute (3) HTN (hypertension) Status: Acute (4) Hyperlipidemia Status: Acute (5) Right sided weakness Status: Acute (6) Facial asymmetry Status: Acute Core Measure Documentation - Palliative Care Palliative Care/ Comfort Measures: Not Applicable - Core Measures Any of the following diagnoses?: stroke - Stroke Discharge Requirements Statin for LDL = or >70 mg/dl on DC: Yes Anticoag for atrial fib/atrial flutter: Not Applicable Antithrombotic for ischemic stroke: Yes Exam - Physical Exam Narrative exam: Not in cardiopulmonary distress. The patient is obese. Vital signs as documented. Head exam is unremarkable. No scleral icterus . Neck is without jugular venous distension, thyromegaly, or carotid bruits. Lungs are clear to auscultation. Cardiac exam reveals regular rate and Rhythm. Abdominal exam reveals PEG tube in place. Extremities are nonedematous and both femoral and pedal pulses are normal. 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: Patient was dysarthric, confused, right-sided weakness - Constitutional Vitals: Temp Pulse Resp BP Pulse Ox 98.0 F 68 18 124/76 98 02/09/21 04:16 02/08/21 23:59 02/09/21 04:16 02/09/21 04:16 02/08/21 22:46 Plan Activity: advance as tolerated Weight Bearing Status: Weight Bear as Tolerated Diet: low cholesterol, low salt Follow up with: PRIMARY MD GERRY [Primary Care Provider] - 3-5 Days KODI VALENTINE MD [Staff Physician] - 7 Days Prescriptions: AtorvaSTATin [Lipitor] 80 mg PO QHS #60 tablet Losartan [Cozaar] 50 mg PO QDAY #30 tablet Clopidogrel [Plavix] 75 mg PO QDAY #30 tablet Lansoprazole Solutab [Prevacid Solutab] 30 mg FEEDTUBE QDAY #30 tab.[email or web address]
[2021-02-09] MEDS: amLODIPine 10 MG TAB PO SCH (09:35)
[2021-02-09] MEDS: CLOPIDOGREL 75 MG TAB PO SCH (09:36)
[2021-02-09] MEDS: ASPIRIN 325 MG TAB PO SCH (09:36)
[2021-02-09] MEDS: LOSARTAN 50 MG TAB PO SCH (09:36)
[2021-02-09] MEDS: LANSOPRAZOLE 30 MG SOLUTAB FEEDTUBE SCH (09:36)
[2021-02-09 09:37] VITALS: BP 133/76
== END 2021-02-09 13:49 | DRG 65 ==
LOC: ED 14:08 → 4A 01-15 00:32
PROVIDERS: ADMIT Hospitalist; ATTEND Internal Medicine
PROC: 0DH63UZ Insertion of Feeding Device into Stomach, Percutaneous Approach (ICD-10-PCS; principal; 2021-01-25)
DX: I63.9 Cerebral infarction, unspecified (principal); G81.91 Hemiplegia, unspecified affecting right dominant side; R65.10 Systemic inflammatory response syndrome (SIRS) of non-infectious origin without acute organ dysfunction; I10 Essential (primary) hypertension; R47.1 Dysarthria and anarthria; Z20.822 Contact with and (suspected) exposure to COVID-19; E78.5 Hyperlipidemia, unspecified; M10.9 Gout, unspecified; E66.9 Obesity, unspecified; Z68.37 Body mass index [BMI] 37.0-37.9, adult; R13.10 Dysphagia, unspecified; K44.9 Diaphragmatic hernia without obstruction or gangrene; K29.70 Gastritis, unspecified, without bleeding; R29.706 NIHSS score 6; R47.81 Slurred speech
CPT/HCPCS: 36415; 70450; 70496; 70498; 70544; 70551; 74018; 74230; 80048; 80061; 82962; 85025; 85027; 85610; 85670; 85730; 93005; 93308; 93321; 93325; 94640; 96374; G0378; A9270-GY; J1170; J1644; J2405; J2704; J3010; J7030; J7042; Q9967; U0003